=== PATIENT | male | born 1965 | race Native Hawaiian/Other Pacific Islander ===

== ENCOUNTER 2017-01-04 16:10 | Inpatient (IN) | payer OTHER ==
[2017-01-04] VITALS (7 sets, daily range): BP systolic 96–134; BP diastolic 62–88; PULSE 78–96; RESP 16–18; TEMP 97.8; O2SAT 96–100
[~2017-01-04] VITALS: Ht 165.1 cm; Wt 55.0 kg
[~2017-01-04 16:10] MED LIST: FOLI1 PO; LACT10SO27 PO; LEVO88TA2 PO; MAGN400 PO; NOVOLOGP2 SQ; OMEP20TA39 PO; PROP10TA6 PO; TAB-TAB PO
[2017-01-04] MEDS ORDERED: SODIUM CHLOR 0.9% 1000 ML INJ 1,000 ML IV SCH ×2 (16:38→17:58)
[2017-01-04 16:45] LABS: MEAN CORPUSCULAR HGB CONC 29.9 % (32.0-36.0)
[2017-01-04] MEDS ORDERED: FAMOTIDINE 20 MG/2 ML VIAL IV PUSH ONE (16:45)
--- NOTE | 2017-01-04 17:18 | PD ---
HPI Chief Complaint: Diabetic Time Seen by Provider: 17:08 Travel History International Travel<30 days: No Contact w/Intl Traveler<30days: No Traveled to known affect area: No History of Present Illness HPI 51-year-old male that presents to the ED for evaluation of high blood sugar and orthostatic hypotension. Patient apparently went to his doctor today Dr. Stringer from the [facility]. Patient was seen here today because he has been having 1 week history of weakness with inability to keep food down and losing 10 pounds. Patient does have a history of alcoholic cirrhosis. He denies any abdominal discomfort. No chest pain or shortness of breath. No urinary issues or bowel movement issues. Denies any bleeding of any kind. Per patient he went to see his doctor for evaluation of this and he was seen by a doctor who recommended that he comes to the ED. Patient comes here with the paperwork from the facility where he was seen with the history of present illness from the DrElisa who found that the patient was severely orthostatic hypotension with his blood pressure dropping significantly and causing him inability to ambulate. Patient also was found to have what appears to be thrush on his mouth that possibly extends to his esophagus. He has never had this issue before. He was also found to have a blood sugar of 600 and he is a known diabetic but he did not take his insulin today secondary to not eating. Per patient he is able to keep fluids down. Per patient he feels like solids gets stuck on his throat. He has lost 10 pounds. Again he complains of no pain other than on the throat. He denies any swelling of any kind. He has no allergies to medication. PFSH Past Medical History Anemia: Yes Blood Disorders: No Heart Rhythm Problems: No Cancer: No Cardiovascular Problems: Yes High Cholesterol: Yes Chest Pain: No Congestive Heart Failure: No Cirrhosis: Yes Diabetes: Yes Patient Takes Glucophage: No Diminished Hearing: No Endocrine: Yes Gastrointestinal Disorders: Yes (ESOPHAGEAL VARICES) Genitourinary: No Hepatitis: Yes (CIRRHOSIS) Hiatal Hernia: No Hypertension: Yes Immune Disorder: No Medical other: Yes (CIRRHOSIS) Musculoskeletal: No Neurologic: No Psychiatric: No Reproductive: No Respiratory: No Myocardial Infarction: No Thyroid Disease: Yes Tetanus Vaccination: > 5 Years Influenza Vaccination: Yes Past Surgical History Abdominal Surgery: No AICD: No Body Medical Devices: NONE Cardiac Surgery: No Ear Surgery: No Endocrine Surgery: No Eye Surgery: No Genitourinary Surgery: No Gynecologic Surgery: No Joint Replacement: No Neurologic Surgery: No Oral Surgery: No Pacemaker: No Thoracic Surgery: No Other Surgery: Yes (BANDED ESOPHAGEAL VARICES) Social History Alcohol Use: Yes (1 quart vodka/day, PT STATES QUIT 10 DAYS AGO) Tobacco Use: No Substance Use: No Allergies-Medications (Allergen,Severity, Reaction): Coded Allergies: No Known Allergies (Verified , 01/04/17) Reported Meds & Prescriptions Reported Meds & Active Scripts Active Reported Omeprazole 20 Mg Tab 20 Mg PO HS Vitamin B-12 (Cyanocobalamin) Unknown Strength Tab 1 Tab PO HS Multi Vitamin (Multiple Vitamin) 1 Tab Tab 1 Tab PO DAILY Propranolol (Propranolol HCl) 10 Mg Tab 10 Mg PO DAILY Levothyroxine (Levothyroxine Sodium) 88 Mcg Tab 88 Mcg PO DAILY Magnesium Oxide 400 Mg Tab 400 Mg PO DAILY Folate (Folic Acid) 1 Mg Tab 1 Mg PO DAILY Lasix (Furosemide) 20 Mg Tab 20 Mg PO DAILY Review of Systems General / Constitutional: Positive: Weight Loss, No: Fever, Chills, Weight Gain, Other Eyes: No: Diploplia, Blurred Vision, Photophobia, Drainage, Redness, Foreign Body Sensation, Pain, Tearing, Blind Spots, Visual changes, Blindness, Other HENT: No: Headaches, Vertigo, Lightheadedness, Sore Throat, Rhinitis, Rhinorrhea, Congestion, Nosebleed, Neck Stiffness, Neck Pain, Masses, Gingival Bleeding, Dental Difficulties, Ear Discharge, Earache, Other Cardiovascular: No: Chest Pain or Discomfort, Palpitations, Irregular Rhythm, Tachycardia, Diaphoresis, Syncope, Dyspnea on exertion, Varicosities, Edema, Cyanosis, Varicosities, Phlebitis, Claudication, Other Respiratory: No: Cough, Shortness of Breath, Wheezing, Sneezing, Orthopnea, Hemoptysis, Stridor, Night Sweats, Pleuritic Pain, Other Gastrointestinal: Positive: Dysphagia, Loss of Appetite, No: Nausea, Vomiting , Diarrhea, Abdominal Pain, Hematemesis, Hematochezia, Constipation, Changes in Bowel Habits, Indigestion, Other Genitourinary: No: Urgency, Frequency, Dysuria, Nocturia, Hematuria, Decreased Urinary Output, Oliguria, Hesitancy, Dribbling, Incontinence, Pelvic Pain, Flank Pain, Dyspareunia, Discharge, Dysmenorrhea, Menorrhagia, Metorrhagia, Vaginal Bleeding, Other Musculoskeletal: No: Myalgias, Arthralgias, Limited ROM, Weakness, Cramping, Edema, Pain, Atrophy, Other Skin: No Rash, No Itching, No Dryness, No Lumps, No Hives, No Change in Pigmentation, No Change in nails, No Alopecia, No Lesions, No Breast Lumps, No Breast Tenderness, No Breast Swelling, No Other Neurologic: Positive: Weakness, Dizziness, No: Syncope, Focal Abnormalities, Coordination Problem, Tremor, Ataxia, Headache, Change in Mentation, Slurred Speech, Paresthesia, Incontinence, Seizures, Sensory Disturbance, Other Psychiatric: No: Anxiety, Depression, Suicidal Ideations, Disorder of Thought, Mood Disorder, Substance Abuse, Homicidal Ideation, Other Endocrine: No: Heat Intolerance, Cold Intolerance, Polyuria, Polydipsia, Other Hematologic/Lymphatic: No: Easy Bruising, Lymph Node Enlargement, Other Physical Exam Narrative GENERAL: Very petite. SKIN: Warm and dry. HEAD: Atraumatic. Normocephalic. EYES: Pupils equal and round. No scleral icterus. No injection or drainage. ENT: No nasal bleeding or discharge. Mucous membranes pink and moist. Tongue is midline. No blood deviation. Patient has really been petitioned on all teeth which appears to be chronic. Patient cannot fully open the mouth secondary to chronic jaw issue. Patient does have what appears to be white patches on the throat more noted on the left side than on the tongue itself. No obvious deformity noted or mass noted. NECK: Trachea midline. No JVD. CARDIOVASCULAR: Regular rate and rhythm. No murmurs, S3, S4. RESPIRATORY: No accessory muscle use. Clear to auscultation. Breath sounds equal bilaterally. GASTROINTESTINAL: Abdomen soft, non-tender, nondistended. Hepatic and splenic margins not palpable. MUSCULOSKELETAL: Extremities without clubbing, cyanosis, or edema. No obvious deformities. Full range of motion of the upper and lower extremities bilaterally. 2+ pulses bilaterally. NEUROLOGICAL: Awake and alert. No obvious cranial nerve deficits. Motor grossly within normal limits. Five out of 5 muscle strength in the arms and legs. Normal speech. PSYCHIATRIC: Appropriate mood and affect; insight and judgment normal. Data Data Last Documented VS Vital Signs Date Time Temp Pulse Resp B/P Pulse Ox O2 Delivery O2 Flow Rate FiO2 01/04/17 18:15 89 18 132/76 100 Room Air 01/04/17 16:19 97.8 Orders Electrocardiogram (01/04/17 16:38) Complete Blood Count With Diff (01/04/17 16:38) Comprehensive Metabolic Panel (01/04/17 16:38) Ckmb (Isoenzyme) Profile (01/04/17 16:38) Troponin I (01/04/17 16:38) Prothrombin Time / Inr (Pt) (01/04/17 16:38) Act Partial Throm Time (Ptt) (01/04/17 16:38) Lipase (01/04/17 16:38) Urinalysis - C+S If Indicated (01/04/17 16:38) Magnesium (Mg) (01/04/17 16:38) Beta Hydroxybutyrate (Acetone) (01/04/17 16:38) Ammonia (01/04/17 16:38) Thyroid Stimulating Hormone (01/04/17 16:38) Chest, Single Ap (01/04/17 16:38) Sodium Chlor 0.9% 1000 Ml Inj (Ns 1000 M (01/04/17 16:38) Famotidine Inj (Pepcid Inj) (01/04/17 16:45) Orthostatic Vital Signs (01/04/17 16:56) Hiv Antibody Screen (01/04/17 17:19) Fluconazole 400 Mg Premix Bag (Diflucan (01/04/17 17:30) Sodium Chlor 0.9% 1000 Ml Inj (Ns 1000 M (01/04/17 17:58) Food Service Order Clerk / Telemetry (01/04/17 18:33) ^ Insert Iv (01/04/17 18:33) Diet Npo (01/04/17 Dinner) Sodium Chlor 0.9% 1000 Ml Inj (Ns 1000 M (01/04/17 18:33) Dext 5%-Nacl 0.9% 1000 Ml Inj (D5w-Ns 10 (01/04/17 18:33) Insulin Human Regular Inj (Novolin R Inj (01/04/17 18:45) Insulin Regular (Iv Infusion) (Novolin R (01/04/17 18:45) Potassium Chlor 40 Meq Premix (Kcl 40 Me (01/04/17 18:45) Potassium Chlor 40 Meq Premix (Kcl 40 Me (01/04/17 18:45) Potassium Chlor 20 Meq Premix (Kcl 20 Me (01/04/17 18:45) Potassium Chlor 20 Meq Premix (Kcl 20 Me (01/04/17 18:45) Potassium Chlor 20 Meq Premix (Kcl 20 Me (01/04/17 18:45) Potassium Chlor 20 Meq Premix (Kcl 20 Me (01/04/17 18:45) Potassium Chlor 20 Meq Premix (Kcl 20 Me (01/04/17 18:45) Potassium Chlor 20 Meq Premix (Kcl 20 Me (01/04/17 18:45) Sodium Bicarbonate 8.4% Inj (Sodium Bica (01/04/17 18:45) Sodium Bicarbonate 8.4% Inj (Sodium Bica (01/04/17 18:45) Sodium Phosphate Inj (Sodium Phosphate I (01/04/17 18:45) Hemoglobin (Hgb) A1c (01/04/17 18:33) Urinalysis - C+S If Indicated (01/04/17 18:33) Basic Metabolic Panel (Bmp) (01/04/17 23:33) Basic Metabolic Panel (Bmp) (01/05/17 05:33) Basic Metabolic Panel (Bmp) (01/05/17 11:33) Basic Metabolic Panel (Bmp) (01/05/17 17:33) Magnesium (Mg) (01/04/17 23:33) Magnesium (Mg) (01/05/17 05:33) Magnesium (Mg) (01/05/17 11:33) Magnesium (Mg) (01/05/17 17:33) Phosphorus (Po4) (01/04/17 23:33) Phosphorus (Po4) (01/05/17 05:33) Phosphorus (Po4) (01/05/17 11:33) Phosphorus (Po4) (01/05/17 17:33) Beta Hydroxybutyrate (Acetone) (01/05/17 05:33) Beta Hydroxybutyrate (Acetone) (01/05/17 17:33) Admit Order (Ed Use Only) (01/04/17 18:58) Labs Laboratory Tests Test 01/04/17 01/04/17 16:15 17:50 White Blood Count 7.7 TH/MM3 Red Blood Count 3.92 MIL/MM3 Hemoglobin 8.8 GM/DL Hematocrit 29.4 % Mean Corpuscular Volume 75.0 FL Mean Corpuscular Hemoglobin 22.4 PG Mean Corpuscular Hemoglobin 29.9 % Concent Red Cell Distribution Width 17.5 % Platelet Count 114 TH/MM3 Mean Platelet Volume 7.8 FL Neutrophils (%) (Auto) 52.8 % Lymphocytes (%) (Auto) 33.7 % Monocytes (%) (Auto) 12.7 % Eosinophils (%) (Auto) 0.4 % Basophils (%) (Auto) 0.4 % Neutrophils # (Auto) 4.1 TH/MM3 Lymphocytes # (Auto) 2.6 TH/MM3 Monocytes # (Auto) 1.0 TH/MM3 Eosinophils # (Auto) 0.0 TH/MM3 Basophils # (Auto) 0.0 TH/MM3 CBC Comment AUTO DIFF Differential Comment AUTO DIFF CONFIRMED Platelet Estimate NORMAL Platelet Morphology Comment NORMAL Red Cell Morphology Comment NORMAL Prothrombin Time 11.4 SEC Prothromb Time International 1.0 RATIO Ratio Activated Partial 29.4 SEC Thromboplast Time Sodium Level 118 MEQ/L Potassium Level 4.1 MEQ/L Chloride Level 76 MEQ/L Carbon Dioxide Level 22.1 MEQ/L Anion Gap 20 MEQ/L Blood Urea Nitrogen 13 MG/DL Creatinine 1.62 MG/DL Estimat Glomerular Filtration 45 ML/MIN Rate Random Glucose 784 MG/DL Calcium Level 8.9 MG/DL Magnesium Level 1.8 MG/DL Total Bilirubin 0.9 MG/DL Aspartate Amino Transf 16 U/L (AST/SGOT) Alanine Aminotransferase 14 U/L (ALT/SGPT) Alkaline Phosphatase 153 U/L Ammonia 26 MCMOL/L Total Creatine Kinase 25 U/L Troponin I LESS THAN 0.02 NG/ML Total Protein 8.3 GM/DL Albumin 2.8 GM/DL Lipase 53 U/L Thyroid Stimulating Hormone 3.980 uIU/ML 3rd Gen B-Hydroxybutyrate 8.73 MMOL/L Urine Color LIGHT-YELLOW Urine Turbidity CLEAR Urine pH 6.0 Urine Specific [place] 1.017 Urine Protein NEG mg/dL Urine Glucose (UA) 1000 mg/dL Urine Ketones 40 mg/dL Urine Occult Blood TRACE Urine Nitrite NEG Urine Bilirubin NEG Urine Urobilinogen LESS THAN 2.0 MG/DL Urine Leukocyte Esterase NEG Urine RBC 1 /hpf Urine WBC 1 /hpf Urine Squamous Epithelial <1 /hpf Cells Urine Bacteria RARE /hpf Urine Mucus FEW /lpf Microscopic Urinalysis Comment CULT NOT INDICATED MDM Medical Decision Making Medical Screen Exam Complete: Yes Emergency Medical Condition: Yes Medical Record Reviewed: Yes Interpretation(s) CBC & BMP Diagram 01/04/17 16:15 LFTS negative troponin and CKMB negative acetone elevated anion gap of 20. Last Impressions Chest X-Ray 01/04/17 1638 Signed Impressions: Service Date/Time: Wednesday, January 04, 2017 17:06 - CONCLUSION: No acute disease. Marco Antonio Powell MD Differential Diagnosis Esophagitis versus dysphagia versus thrush versus oral candidiasis versus weakness versus DKA versus dehydration versus malnutrition versus cirrhosis versus stricture versus diverticula versus orthostatic hypotension Narrative Course 51-year-old male that presents to the ED for evaluation of inability to eat solids, weakness and inability to ambulate as well as loss of weight and possibly thrush. Patient was properly examined and was found to have signs and symptoms consistent with appears to be esophagitis would likely dysphagia. Questionable but this is related to the oral candidiasis or structural problem I do recommend barium swallow. Before she patient cannot do the barium swallow secondary to his severe orthostatic hypotension which per family is new. Patient did have significant drop of blood pressure and inability to ambulate when standing without assistance at his doctor's office and in this facility. Because of this labs and imaging will be ordered. Cardiac workup will be done. Orthostatic hypotension likely from malnutrition and dehydration could also be related secondary to cirrhosis for cardiac. Patient does have risk factors for all. At this time labs and imaging were ordered. Patient was given 1 bolus of fluid. Patient was given medications for the esophagitis including nystatin and malox. Labs and imaging showed what appears to be DKA. Patient sodium corrected for hyperglycemia show a sodium of 129. Case was discussed with my attending Dr. Zapata who evaluated the patient with me and agrees to admission to the ICU secondary to patient's significant orthostatic hypotension , DKA, anemia and oral candidiasis. Electric Furnace Operator was paged and Dr Salgado agrees to admission. Procedures EKG Prior to Arrival: No HemaPrompt Point of Care Internal Pos. & Neg. Controls: Passed Fecal Specimen Occult Blood: Negative Diagnosis Primary Impression: DKA (diabetic ketoacidoses) Qualified Code: E10.10 - Diabetic ketoacidosis without coma associated with type 1 diabetes mellitus Additional Impressions: Oral candidiasis Anemia Qualified Code: D64.9 - Anemia, unspecified type Dysphagia Qualified Code: R13.14 - Esophageal dysphagia Admitting Information Admitting Physician Requests: Admit Arik Brown Jan 04, 2017 17:18
--- NOTE | 2017-01-04 17:22 | RADRPT ---
EXAM DATE/TIME: 01/04/2017 17:06 [facility] COMPARISON: CHEST SINGLE AP, November 13, 2015, 16:31. INDICATIONS : Short of breath and dysphagia. MEDICAL HISTORY : None. SURGICAL HISTORY : None. ENCOUNTER: Initial ACUITY: 1 week PAIN SCORE: 0/10 LOCATION: Bilateral chest FINDINGS: A single view of the chest demonstrates the lungs to be symmetrically aerated without evidence of mas s, infiltrate or effusion. The cardiomediastinal contours are unremarkable. Osseous structures are intact. CONCLUSION: No acute disease. Marco Antonio Powell MD on January 04, 2017 at 17:20 Board Certified Radiologist. This report was verified electronically.
[2017-01-04 17:24] LABS: AUTOMATED NEUTROPHIL # 4.1 TH/MM3 (1.8-7.7); BASOPHIL % 0.4 % (0.0-2.0); EOSINOPHIL % 0.4 % (0.0-4.0); HEMATOCRIT 29.4 % (39.0-51.0); LYMPH % 33.7 % (9.0-44.0); LYMPHOCYTE # 2.6 TH/MM3 (1.0-4.8); MEAN CORPUSCULAR HEMOGLOBIN 22.4 PG (27.0-34.0); MONO % 12.7 % (0.0-8.0); NEUT % 52.8 % (16.0-70.0); PLATELET COUNT 114 TH/MM3 (150-450); RED BLOOD COUNT 3.92 MIL/MM3 (4.50-5.90); RED CELL DISTRIBUTION WIDTH 17.5 % (11.6-17.2); WHITE BLOOD COUNT 7.7 TH/MM3 (4.0-11.0)
[2017-01-04 17:26] LABS: HEMO FLAGS AUTO DIFF
[2017-01-04] MEDS ORDERED: FLUCONAZOLE 400 MG PREMIX BAG 200 ML IV ONE (17:30)
[2017-01-04 17:34] LABS: APTT (PATIENT) 29.4 SEC (24.3-30.1); PROTHROMBIN TIME - PATIENT 11.4 SEC (9.8-11.6)
[2017-01-04] MEDS ORDERED: VITA50TA10 PO (17:52)
[2017-01-04] MEDS ORDERED: MAGN400T2 PO (17:52)
[2017-01-04] MEDS ORDERED: LEVO88TA2 PO (17:52)
[2017-01-04] MEDS ORDERED: FURO1TAB62 PO (17:52)
[2017-01-04] MEDS ORDERED: PROP10TA6 PO (17:52)
[2017-01-04] MEDS ORDERED: OMEP20TA PO (17:52)
[2017-01-04] MEDS ORDERED: MULT-135 PO (17:52)
[2017-01-04] MEDS ORDERED: FOLI1TAB4 PO (17:52)
[2017-01-04 17:56] LABS: PLATELET ESTIMATE SMEAR NORMAL (NORMAL); PLATELET MORPHOLOGY NORMAL (NORMAL); SCAN/DIFF AUTO DIFF CONFIRMED
[2017-01-04 18:04] LABS: ALKALINE PHOSPHATASE 153 U/L (45-117); ALT (GPT) 14 U/L (12-78); ANION GAP 20 MEQ/L (5-15); AST (GOT) 16 U/L (15-37); BETA-HYDROXYBUTYRATE 8.73 MMOL/L (0.00-0.39); BICARBONATE 22.1 MEQ/L (21.0-32.0); BLOOD UREA NITROGEN 13 MG/DL (7-18); CHLORIDE 76 MEQ/L (98-107); GLOMERULAR FILTRATION RATE 45 ML/MIN (>89); MAGNESIUM 1.8 MG/DL (1.5-2.5); POTASSIUM 4.1 MEQ/L (3.5-5.1); TOTAL BILIRUBIN ADULT 0.9 MG/DL (0.2-1.0)
[2017-01-04 18:07] LABS: CREATINE KINASE 25 U/L (39-308)
[2017-01-04 18:17] LABS: BACTERIA, URINE RARE /hpf; BLOOD, URINE TRACE (NEG); COMMENT (UR) CULT NOT INDICATED; CULTURE IF INDICATED CULT NOT INDICATED; GLUCOSE,URINE 1000 mg/dL (NEG); KETONE, URINE 40 mg/dL (NEG); MUCUS URINE FEW /lpf (OCC); NITRITE,URINE NEG (NEG); SQUAMOUS EPITHELIAL CELL URINE <1 /hpf (0-5); URINE COLOR LIGHT-YELLOW (YELLW/STRAW)
[2017-01-04 18:23] LABS: SODIUM (NA) 118 MEQ/L (136-145)
--- NOTE | 2017-01-04 18:41 | PD ---
Data Data Last Documented VS Vital Signs Date Time Temp Pulse Resp B/P Pulse Ox O2 Delivery O2 Flow Rate FiO2 01/04/17 18:15 89 18 132/76 100 Room Air 01/04/17 16:19 97.8 Orders Electrocardiogram (01/04/17 16:38) Complete Blood Count With Diff (01/04/17 16:38) Comprehensive Metabolic Panel (01/04/17 16:38) Ckmb (Isoenzyme) Profile (01/04/17 16:38) Troponin I (01/04/17 16:38) Prothrombin Time / Inr (Pt) (01/04/17 16:38) Act Partial Throm Time (Ptt) (01/04/17 16:38) Lipase (01/04/17 16:38) Urinalysis - C+S If Indicated (01/04/17 16:38) Magnesium (Mg) (01/04/17 16:38) Beta Hydroxybutyrate (Acetone) (01/04/17 16:38) Ammonia (01/04/17 16:38) Thyroid Stimulating Hormone (01/04/17 16:38) Chest, Single Ap (01/04/17 16:38) Sodium Chlor 0.9% 1000 Ml Inj (Ns 1000 M (01/04/17 16:38) Famotidine Inj (Pepcid Inj) (01/04/17 16:45) Orthostatic Vital Signs (01/04/17 16:56) Hiv Antibody Screen (01/04/17 17:19) Fluconazole 400 Mg Premix Bag (Diflucan (01/04/17 17:30) Sodium Chlor 0.9% 1000 Ml Inj (Ns 1000 M (01/04/17 17:58) Apparel Manager / Telemetry (01/04/17 18:33) ^ Insert Iv (01/04/17 18:33) Diet Npo (01/04/17 Dinner) Sodium Chlor 0.9% 1000 Ml Inj (Ns 1000 M (01/04/17 18:33) Dext 5%-Nacl 0.9% 1000 Ml Inj (D5w-Ns 10 (01/04/17 18:33) Insulin Human Regular Inj (Novolin R Inj (01/04/17 18:45) Insulin Regular (Iv Infusion) (Novolin R (01/04/17 18:45) Potassium Chlor 40 Meq Premix (Kcl 40 Me (01/04/17 18:45) Potassium Chlor 40 Meq Premix (Kcl 40 Me (01/04/17 18:45) Potassium Chlor 20 Meq Premix (Kcl 20 Me (01/04/17 18:45) Potassium Chlor 20 Meq Premix (Kcl 20 Me (01/04/17 18:45) Potassium Chlor 20 Meq Premix (Kcl 20 Me (01/04/17 18:45) Potassium Chlor 20 Meq Premix (Kcl 20 Me (01/04/17 18:45) Potassium Chlor 20 Meq Premix (Kcl 20 Me (01/04/17 18:45) Potassium Chlor 20 Meq Premix (Kcl 20 Me (01/04/17 18:45) Sodium Bicarbonate 8.4% Inj (Sodium Bica (01/04/17 18:45) Sodium Bicarbonate 8.4% Inj (Sodium Bica (01/04/17 18:45) Sodium Phosphate Inj (Sodium Phosphate I (01/04/17 18:45) Hemoglobin (Hgb) A1c (01/04/17 18:33) Urinalysis - C+S If Indicated (01/04/17 18:33) Basic Metabolic Panel (Bmp) (01/04/17 23:33) Basic Metabolic Panel (Bmp) (01/05/17 05:33) Basic Metabolic Panel (Bmp) (01/05/17 11:33) Basic Metabolic Panel (Bmp) (01/05/17 17:33) Magnesium (Mg) (01/04/17 23:33) Magnesium (Mg) (01/05/17 05:33) Magnesium (Mg) (01/05/17 11:33) Magnesium (Mg) (01/05/17 17:33) Phosphorus (Po4) (01/04/17 23:33) Phosphorus (Po4) (01/05/17 05:33) Phosphorus (Po4) (01/05/17 11:33) Phosphorus (Po4) (01/05/17 17:33) Beta Hydroxybutyrate (Acetone) (01/05/17 05:33) Beta Hydroxybutyrate (Acetone) (01/05/17 17:33) Labs Laboratory Tests Test 01/04/17 01/04/17 16:15 17:50 White Blood Count 7.7 TH/MM3 Red Blood Count 3.92 MIL/MM3 Hemoglobin 8.8 GM/DL Hematocrit 29.4 % Mean Corpuscular Volume 75.0 FL Mean Corpuscular Hemoglobin 22.4 PG Mean Corpuscular Hemoglobin 29.9 % Concent Red Cell Distribution Width 17.5 % Platelet Count 114 TH/MM3 Mean Platelet Volume 7.8 FL Neutrophils (%) (Auto) 52.8 % Lymphocytes (%) (Auto) 33.7 % Monocytes (%) (Auto) 12.7 % Eosinophils (%) (Auto) 0.4 % Basophils (%) (Auto) 0.4 % Neutrophils # (Auto) 4.1 TH/MM3 Lymphocytes # (Auto) 2.6 TH/MM3 Monocytes # (Auto) 1.0 TH/MM3 Eosinophils # (Auto) 0.0 TH/MM3 Basophils # (Auto) 0.0 TH/MM3 CBC Comment AUTO DIFF Differential Comment AUTO DIFF CONFIRMED Platelet Estimate NORMAL Platelet Morphology Comment NORMAL Red Cell Morphology Comment NORMAL Prothrombin Time 11.4 SEC Prothromb Time International 1.0 RATIO Ratio Activated Partial 29.4 SEC Thromboplast Time Sodium Level 118 MEQ/L Potassium Level 4.1 MEQ/L Chloride Level 76 MEQ/L Carbon Dioxide Level 22.1 MEQ/L Anion Gap 20 MEQ/L Blood Urea Nitrogen 13 MG/DL Creatinine 1.62 MG/DL Estimat Glomerular Filtration 45 ML/MIN Rate Random Glucose 784 MG/DL Calcium Level 8.9 MG/DL Magnesium Level 1.8 MG/DL Total Bilirubin 0.9 MG/DL Aspartate Amino Transf 16 U/L (AST/SGOT) Alanine Aminotransferase 14 U/L (ALT/SGPT) Alkaline Phosphatase 153 U/L Ammonia 26 MCMOL/L Total Creatine Kinase 25 U/L Troponin I LESS THAN 0.02 NG/ML Total Protein 8.3 GM/DL Albumin 2.8 GM/DL Lipase 53 U/L Thyroid Stimulating Hormone 3.980 uIU/ML 3rd Gen B-Hydroxybutyrate 8.73 MMOL/L Urine Color LIGHT-YELLOW Urine Turbidity CLEAR Urine pH 6.0 Urine Specific [place] 1.017 Urine Protein NEG mg/dL Urine Glucose (UA) 1000 mg/dL Urine Ketones 40 mg/dL Urine Occult Blood TRACE Urine Nitrite NEG Urine Bilirubin NEG Urine Urobilinogen LESS THAN 2.0 MG/DL Urine Leukocyte Esterase NEG Urine RBC 1 /hpf Urine WBC 1 /hpf Urine Squamous Epithelial <1 /hpf Cells Urine Bacteria RARE /hpf Urine Mucus FEW /lpf Microscopic Urinalysis Comment CULT NOT INDICATED MDM Supervised Visit with DEANNA: Yes Narrative Course I, Dr. Angulo, have reviewed the advance practice practioner's documentation and am in agreement, met with the patient face to face, made the diagnosis, and the medical decision making was done by me. *My assessment and Findings: 51-year-old cachectic male with history of alcoholic cirrhosis, GI bleed, esophageal varices status post banding, DM here with complaint of generalized weakness, orthostatic hypotension, hyperglycemia for the last week. Associated dysphasia, and pain with swallowing. Patient was seen by [facility] physician prior to ER evaluation today who noted patient to be severely orthostatic, and they had posterior pharyngeal thrush. Patient had blood sugar in the 600s per EMS. States he's lost approximately 10 pounds in the last week. On exam patient is cachectic male in no acute distress. Complains of nausea. Abdominal examination is benign. He has significant orthostatic hypotension when performed - 40 point drop in blood pressure. Differential includes dehydration, electrolyte abnormality, immunosuppression, esophageal candidiasis, stricture, achalasia. No report of GI bleed. Concern for hyperglycemia, DKA versus HHS. With his esophageal candidiasis concern for HIV. Patient given IV fluids, PPI. Chest x- ray unremarkable. Treated empirically with fluconazole IV. Laboratory workup notable for anemia with hemoglobin 8.8. Laboratory workup notable for hyperglycemia, mild DKA versus HHS. Hyponatremic, sodium 118 corrected 126. Beta hydroxybutyrate 8.73. Patient was started on insulin bolus and drip. HIV test remains pending. Patient will be admitted for further management and potential endoscopy. Diagnosis Primary Impression: DKA (diabetic ketoacidoses) Additional Impressions: Candidal esophagitis Orthostatic hypotension Dysphasia Hyperglycemia Hyponatremia High anion gap metabolic acidosis Anemia Admitting Information Admitting Physician Requests: Admit Shadia Angulo MD Jan 04, 2017 18:41
[2017-01-04] MEDS ORDERED: POTASSIUM CHLOR 40 MEQ PREMIX 100 ML IV PRN ×4 (18:45→20:00)
[2017-01-04] MEDS ORDERED: POTASSIUM CHLOR 20 MEQ PREMIX 100 ML IV PRN ×7 (18:45→20:00)
[2017-01-04] MEDS ORDERED: SODIUM BICARBONATE 8.4% SOLN 50 MEQ/50 ML VIAL IV PRN ×2 (18:45)
[2017-01-04] MEDS ORDERED: SODIUM PHOSPHATE INJ 15 MMOL in SODIUM CHLORIDE 0.9% INJ 100 ML IV PRN (18:45)
[2017-01-04] MEDS ORDERED: INSULIN REGULAR (IV INFUSION) 100 UNITS in SODIUM CHLORIDE 0.9% INJ 99 ML IV SCH (18:45)
[2017-01-04] MEDS ORDERED: INSULIN HUMAN REGULAR 1,000 UNITS/10 ML VIAL IV PUSH ONE (18:45)
[2017-01-04] MEDS: SODIUM CHLOR 0.9% 1000 ML INJ 1,000 ML IV SCH ×2 (19:13→22:25)
[2017-01-04] MEDS: POTASSIUM CHLOR 20 MEQ PREMIX 100 ML IV PRN ×2 (19:23→21:36)
--- NOTE | 2017-01-04 19:56 | HHI.HP ---
HPI Service Critical Care Medicine Primary Care Physician Tyrese Stringer MD Admission Diagnosis DKA, oral candidiasis, orthostatic hypotension Diagnosis: Chief Complaint: dysphagia Travel History International Travel<30 Days: No Contact w/Intl Traveler <30 Da: No Traveled to Known Affected Are: No History of Present Illness This is a 51-year-old male with a history of alcoholic cirrhosis and diabetes who initially presented to his primary care physician for one week of weakness and inability to tolerate food by mouth. He is apparently lost about 10 pounds this week. He denied at that point any abdominal pain, chest pain, shortness of breath, nausea and vomiting. He has a history of GI bleeding, but denies any hemoptysis. His primary care physician referred him to the emergency department. In the emergency department he was severely orthostatic. He received IV fluid boluses which improved his blood pressure. He had significant oral eugenia on evaluation in the emergency department. He does endorse severe dysphagia and pain on swallowing. In emergency department he was also found to be in severe DKA with an anion gap of 20, positive urine ketones, and positive serum ketones. He was started on DKA protocol and insulin infusion and critical care medicine is consulted. Review of Systems ROS Limitations: Clinical Condition, Poor Historian Past Family Social History Allergies: Coded Allergies: No Known Allergies (Verified , 01/04/17) Past Medical History Anemia Hypercholesterolemia Cirrhosis Diabetes Esophageal varices Hypothyroidism Past Surgical History Esophageal variceal banding Reported Medications Omeprazole 20 Mg Tab 20 Mg PO HS Vitamin B-12 (Cyanocobalamin) Unknown Strength Tab 1 Tab PO HS Multi Vitamin (Multiple Vitamin) 1 Tab Tab 1 Tab PO DAILY Propranolol (Propranolol HCl) 10 Mg Tab 10 Mg PO DAILY Levothyroxine (Levothyroxine Sodium) 88 Mcg Tab 88 Mcg PO DAILY Magnesium Oxide 400 Mg Tab 400 Mg PO DAILY Folate (Folic Acid) 1 Mg Tab 1 Mg PO DAILY Lasix (Furosemide) 20 Mg Tab 20 Mg PO DAILY Active Ordered Medications See MAR Family History Reviewed and found to be noncontributory to his acute illness Social History History of etoh abuse (1 qt vodka/day, but quit 10 yrs ago). Physical Exam Vital Signs Vital Signs Date Time Temp Pulse Resp B/P Pulse Ox O2 Delivery O2 Flow Rate FiO2 01/04/17 19:27 78 16 125/78 96 Room Air 01/04/17 18:15 89 18 132/76 100 Room Air 01/04/17 17:53 82 134/76 81 126/88 95 96/62 01/04/17 16:26 87 18 100 Room Air 01/04/17 16:19 97.8 96 18 105/70 99 Physical Exam GENERAL: Cachectic male, lying in bed HEENT: Normocephalic. Atraumatic. Pupils equal, round, conjugate, reactive. Mucous and membranes are dry. NECK: Trachea is midline. Neck veins flat. CHEST: Equal chest rise. Mildly Tachypneic. Clear to auscultation CARDIOVASCULAR: Normal rate, regular rhythm. No appreciable murmurs. ABDOMEN: Scaphoid, soft, nontender, nondistended. No guarding. MUSCULOSKELETAL: No peripheral edema. Distal pulses 2+. NEUROLOGICAL: RASS 0. Follows commands in all 4 extremities. Laboratory Laboratory Tests Test 01/04/17 01/04/17 16:15 17:50 White Blood Count 7.7 Red Blood Count 3.92 Hemoglobin 8.8 Hematocrit 29.4 Mean Corpuscular Volume 75.0 Mean Corpuscular Hemoglobin 22.4 Mean Corpuscular Hemoglobin 29.9 Concent Red Cell Distribution Width 17.5 Platelet Count 114 Mean Platelet Volume 7.8 Neutrophils (%) (Auto) 52.8 Lymphocytes (%) (Auto) 33.7 Monocytes (%) (Auto) 12.7 Eosinophils (%) (Auto) 0.4 Basophils (%) (Auto) 0.4 Neutrophils # (Auto) 4.1 Lymphocytes # (Auto) 2.6 Monocytes # (Auto) 1.0 Eosinophils # (Auto) 0.0 Basophils # (Auto) 0.0 CBC Comment AUTO DIFF Differential Comment AUTO DIFF CONFIRMED Platelet Estimate NORMAL Platelet Morphology Comment NORMAL Red Cell Morphology Comment NORMAL Prothrombin Time 11.4 Prothromb Time International 1.0 Ratio Activated Partial 29.4 Thromboplast Time Sodium Level 118 Potassium Level 4.1 Chloride Level 76 Carbon Dioxide Level 22.1 Anion Gap 20 Blood Urea Nitrogen 13 Creatinine 1.62 Estimat Glomerular Filtration 45 Rate Random Glucose 784 Calcium Level 8.9 Magnesium Level 1.8 Total Bilirubin 0.9 Aspartate Amino Transf 16 (AST/SGOT) Alanine Aminotransferase 14 (ALT/SGPT) Alkaline Phosphatase 153 Ammonia 26 Total Creatine Kinase 25 Troponin I LESS THAN 0.02 Total Protein 8.3 Albumin 2.8 Lipase 53 Thyroid Stimulating Hormone 3.980 3rd Gen B-Hydroxybutyrate 8.73 Urine Color LIGHT-YELLOW Urine Turbidity CLEAR Urine pH 6.0 Urine Specific [place] 1.017 Urine Protein NEG Urine Glucose (UA) 1000 Urine Ketones 40 Urine Occult Blood TRACE Urine Nitrite NEG Urine Bilirubin NEG Urine Urobilinogen LESS THAN 2.0 Urine Leukocyte Esterase NEG Urine RBC 1 Urine WBC 1 Urine Squamous Epithelial <1 Cells Urine Bacteria RARE Urine Mucus FEW Microscopic Urinalysis Comment CULT NOT INDICATED Result Diagram: 01/04/17 1615 01/04/17 1615 Assessment and Plan Assessment and Plan Assessment: this is a 51-year-old male with history of alcoholic cirrhosis and diabetes who presents with severe DKA and by history what appears to be probable Eugenia esophagitis. We will start patient on nystatin swish and swallow as well as IV Diflucan for what appears to be severe esophagitis. I have also consulted gastroenterology because the patient likely will require EGD for evaluation of his dysphagia. With regards to his DKA, we have started DKA protocol with insulin drip. We will keep the patient nothing by mouth for his dysphagia and when his DKA is improved we will not discontinue his IV dextrose, but continue D5NS maintenance fluids while he is nothing by mouth. Plan: 1. Severe Diabetic Ketoacidosis -- Insulin drip, bicarbonate, K replacement, serial BMP, electrolyte replacement per protocol. -- if his anion gap closes appropriately, we will transition to insulin sliding scale q4h, high dose -- we will keep the patient NPO for his dysphagia, and keep him on D5NS @ 75cc/ hr once his DKA has resolved. 2. Probable Eugenia Esophagitis, Dysphagia -- Nystatin swish and swallow -- Diflucan 400mg iv q24h. -- GI consult, may require EGD for dysphagia -- NPO. 3. Orthostatic hypotension -- likely combination of dehydration from dysphagia and DKA. -- IVF resuscitation from ER as well as with DKA protocol. after which, we will keep the patient on maintenance ivf while he is NPO. 4. EtOH Cirrhosis -- continue home propranolol 5. Hypothyroidism -- continue home synthroid Protonix for GI prophylaxis SCDs and Heparin SQ for DVT prophylaxis Dispo: While the patient is in DKA on an insulin drip, we will admit to the ICU. If his gap closes and he transitions appropriately to SSI, I think he would be stable at that point to transition to the floor with hospitalist following. This patient remains critically ill with one or more organ systems which are or may become a threat to life. I have spent in excess of 46 minutes discontinuously in the care and management of this patient. This time is exclusive of procedures, and includes, but is not limited to, evaluation of the patient, review of the medical record, discussions with family, consultants, nursing staff, or respiratory therapy, and documentation in the medical record. Code Status Full Code Paul Salgado MD Jan 04, 2017 19:56
[2017-01-04] MEDS ORDERED: POTASSIUM PHOSPHATE INJ 30 MMOL in SODIUM CHLOR 0.9% 250 ML INJ 250 ML IV PRN (20:00)
[2017-01-04] MEDS ORDERED: HYDROmorphone HCL PF 1 MG/ML VIAL IV PRN (20:00)
[2017-01-04] MEDS ORDERED: POTASSIUM PHOSPHATE MONOBASIC 500 MG TAB PO PRN (20:00)
[2017-01-04] MEDS ORDERED: MAGNESIUM OXIDE 400 MG TAB PO PRN (20:00)
[2017-01-04] MEDS ORDERED: ONDANSETRON HCL 4 MG/2 ML VIAL IV PRN (20:00)
[2017-01-04] MEDS ORDERED: POTASSIUM PHOSPHATE MONOBASIC 500 MG TAB PO/TUBE PRN (20:00)
[2017-01-04] MEDS ORDERED: CHLORHEXIDINE GLUCONATE 2 % 1 PACK (2 CLOTHS) TOP PRN (20:00)
[2017-01-04] MEDS ORDERED: MAGNESIUM SULFATE INJ 4 GM in SODIUM CHLORIDE 0.9% INJ 92 ML IV PRN (20:00)
[2017-01-04] MEDS ORDERED: SODIUM PHOSPHATE INJ 30 MMOL in SODIUM CHLOR 0.9% 250 ML INJ 240 ML IV PRN (20:00)
[2017-01-04] MEDS ORDERED: PROPOFOL 1000 MG/100 ML INJ 100 ML IV SCH (20:00)
[2017-01-04] MEDS ORDERED: RESP: ALBUTEROL 2.5 MG/IPRATROPIUM 0.5 MG NEB (PRN) INH (20:00)
[2017-01-04] MEDS ORDERED: POTASSIUM CL 40 MEQ/30 ML LIQ UDC PO/TUBE PRN ×2 (20:00)
[2017-01-04] MEDS ORDERED: ACETAMINOPHEN 325 MG TAB PO PRN (20:00)
[2017-01-04] MEDS ORDERED: SODIUM CHLORIDE 0.9% FLUSH 5 ML FLUSH IV FLUSH PRN (20:00)
[2017-01-04] MEDS ORDERED: MISCELLANEOUS NURSING INFORMATION XX SCH (20:00)
[2017-01-04] MEDS ORDERED: MAGNESIUM SULFATE INJ 2 GM in SODIUM CHLORIDE 0.9% INJ 96 ML IV PRN (20:00)
[2017-01-04] MEDS: HEPARIN SODIUM - SQ 10,000 UNITS/ML VIAL SQ SCH (20:26)
[2017-01-04] MEDS: SODIUM CHLORIDE 0.9% FLUSH 5 ML FLUSH IV FLUSH SCH (21:00)
[2017-01-04] MEDS: DOCUSATE SODIUM 50 MG/SENNA 8.6 MG TAB PO SCH (21:00)
[2017-01-04] MEDS: DEXT 5%-NACL 0.9% 1000 ML INJ 1,000 ML IV SCH ×2 (22:22→23:35)
[2017-01-04 23:55] LABS: ANION GAP 10 MEQ/L (5-15); BICARBONATE 26.6 MEQ/L (21.0-32.0); BLOOD UREA NITROGEN 9 MG/DL (7-18); CHLORIDE 100 MEQ/L (98-107); GLOMERULAR FILTRATION RATE 65 ML/MIN (>89); MAGNESIUM 1.4 MG/DL (1.5-2.5); POTASSIUM 3.1 MEQ/L (3.5-5.1); SODIUM (NA) 137 MEQ/L (136-145)
[2017-01-05] VITALS (8 sets, daily range): BP systolic 95–141; BP diastolic 67–85; PULSE 68–87; RESP 16–20; TEMP 96.9–97; O2SAT 95–100
[2017-01-05 00:08] LABS: CALCIUM-PROTEIN CORRECTED 7.8 MG/DL (8.5-10.1)
[2017-01-05] MEDS ORDERED: DEXTROSE 50% IN WATER 50 ML VIAL(D50) IV PUSH PRN (01:00)
[2017-01-05] MEDS ORDERED: GLUCAGON 1 MG/ML VIAL OTHER PRN (01:00)
[2017-01-05] MEDS ORDERED: DEXT 5%-NACL 0.9% 1000 ML INJ 1,000 ML IV ONE (01:00)
[2017-01-05] MEDS: DEXT 5%-NACL 0.9% 1000 ML INJ 1,000 ML IV SCH ×2 (01:42→14:35)
[2017-01-05] MEDS: POTASSIUM CHLOR 20 MEQ PREMIX 100 ML IV PRN (01:44)
[2017-01-05] MEDS: NYSTATIN SUSP 500,000 U/5 ML CUP SWISH-SWAL SCH ×5 (02:15→20:51)
[2017-01-05] MEDS: CHLORHEXIDINE GLUCONATE 2 % 1 PACK (2 CLOTHS) TOP SCH (04:00)
[2017-01-05] MEDS: LEVOTHYROXINE SODIUM 88 MCG TAB PO SCH (04:11)
[2017-01-05] MEDS: INDIVIDUALIZED INSULIN NOVOLIN REGULAR SUPPLEMENTAL SCALE SQ SCH ×5 (05:02→20:55)
[2017-01-05 05:21] LABS: HEMATOCRIT 25.1 % (39.0-51.0); MEAN CELL VOLUME 71.9 FL (80.0-100.0); MEAN CORPUSCULAR HEMOGLOBIN 22.9 PG (27.0-34.0); MEAN CORPUSCULAR HGB CONC 31.8 % (32.0-36.0); PLATELET COUNT 76 TH/MM3 (150-450); RED BLOOD COUNT 3.49 MIL/MM3 (4.50-5.90); RED CELL DISTRIBUTION WIDTH 17.3 % (11.6-17.2); WHITE BLOOD COUNT 6.3 TH/MM3 (4.0-11.0)
[2017-01-05 05:29] LABS: REVIEW FLAG FINAL
[2017-01-05 05:33] LABS: ANION GAP 13 MEQ/L (5-15); BICARBONATE 23.2 MEQ/L (21.0-32.0); BLOOD UREA NITROGEN 10 MG/DL (7-18); CHLORIDE 101 MEQ/L (98-107); MAGNESIUM 2.2 MG/DL (1.5-2.5); POTASSIUM 4.9 MEQ/L (3.5-5.1); SODIUM (NA) 137 MEQ/L (136-145)
[2017-01-05 05:41] LABS: BETA-HYDROXYBUTYRATE 5.33 MMOL/L (0.00-0.39)
[2017-01-05] MEDS: HEPARIN SODIUM - SQ 10,000 UNITS/ML VIAL SQ SCH ×2 (08:41→20:53)
[2017-01-05] MEDS: DOCUSATE SODIUM 50 MG/SENNA 8.6 MG TAB PO SCH ×2 (08:43→20:50)
[2017-01-05] MEDS: PANTOPRAZOLE SODIUM 40 MG VIAL IV SCH (08:44)
[2017-01-05] MEDS: PROPRANOLOL HCL 10 MG TAB PO SCH (08:44)
[2017-01-05] MEDS: SODIUM CHLORIDE 0.9% FLUSH 5 ML FLUSH IV FLUSH SCH ×2 (09:00→20:57)
--- NOTE | 2017-01-05 11:21 | PD.CONS ---
HPI History of Present Illness This is a 51 year old male with a hx of liver cirrhosis, esophageal varices, who came to the ER for evaluation of generalized weakness and inability to tolerate po and was found to be in severe DKA and admitted for this, as well as probable meme esophagitis, dysphagia, orthostatic hypotension, liver cirrhosis, and hypothyroidism. GI has been consulted for dysphagia. He has a known history of liver cirrhosis secondary to alcohol abuse. He reports that he no longer drinks alcohol, although he was still drinking half a bottle of vodka daily back in September 2016 according to our office notes. He recently underwent an EGD (12/02/16) and this revealed reflux esophagitis in the distal esophagus, nodular gastritis was found in the gastric antrum, gastropathy was found in the gastric fundus, retroflex views revealed no abnormalities. Pathology revealed mild chronic and active gastritis, negative for intestinal metaplasia, negative for Helicobacter pylori organisms. He takes Carafate 1 gram po TID, Omeprazole 20mg po daily, Lactulose 30mL po BID, Lasix 20mg po daily, and Propranolol 10mg daily at home. He reports that he has never had difficulty swallowing before but started having issues with solid foods getting stuck in his midesophagus about a week ago. He has not been able to eat much in the way of solid since this time and has lost about 10 pounds. He denies any odynophagia, heartburn, reflux, abdominal pain, nausea, vomiting, diarrhea, melena, or hematochezia. He states that he is able to take liquids just fine and he is swallowing his secretions without any difficulty. (Kasey Villa) PFSH Past Medical History Liver cirrhosis secondary to alcohol abuse Anemia BPH Cataracts Cholelithiasis without obstruction Colon polyps Esophagitis/gastritis Diabetes History of elevated sedimentation rate Esophageal varices Hypertension Hemorrhoids GERD GI bleeding History of oral thrush Pancreatic atrophy Psoriasis Thrombocytopenia Past Surgical History EGD Colonoscopy (Kasey Villa) Coded Allergies: No Known Allergies (Verified , 01/04/17) Medications Allergies Coded Allergies Type Severity Reaction Last Updated Verified No Known Allergies 01/04/17 Yes Active Scripts Medications Dose Route/Sig Days Date Category Omeprazole 20 Mg Tab 20 Mg PO HS 01/04/17 Reported Vitamin B-12 (Cyanocobalamin) Unknown Strength Tab 1 Tab PO HS 01/04/17 Reported Multi Vitamin (Multiple Vitamin) 1 Tab Tab 1 Tab PO DAILY 01/04/17 Reported Propranolol (Propranolol HCl) 10 Mg Tab 10 Mg PO DAILY 01/04/17 Reported Levothyroxine (Levothyroxine Sodium) 88 Mcg Tab 88 Mcg PO DAILY 01/04/17 Reported Magnesium Oxide 400 Mg Tab 400 Mg PO DAILY 01/04/17 Reported Folate (Folic Acid) 1 Mg Tab 1 Mg PO DAILY 01/04/17 Reported Lasix (Furosemide) 20 Mg Tab 20 Mg PO DAILY 01/04/17 Reported Family History Family history of colon cancer. Father had diabetes and hypertension Social History Patient denies the use of alcohol at this time. However back in September 2016 and a office visit he admitted to drinking half a bottle of vodka per day No tobacco use (Kasey Villa) Review of Systems Constitutional: COMPLAINS OF: Fatigue, Weight loss, Change in appetite Respiratory: DENIES: Cough, Shortness of breath Cardiovascular: DENIES: Chest pain Gastrointestinal: COMPLAINS OF: Difficulty Swallowing, DENIES: Abdominal pain , Black stools, Bloody stools, Constipation, Diarrhea, Nausea, Vomiting, Odynophagia, Heartburn, Hematemesis Musculoskeletal: DENIES: Joint pain Integumentary: DENIES: Abnormal pigmentation Hematologic/lymphatic: DENIES: Bruising Neurologic: DENIES: Headache Psychiatric: DENIES: Confusion (Kasey Villa) GI Exam Vitals I&O Vital Signs Date Time Temp Pulse Resp B/P Pulse Ox O2 Delivery O2 Flow Rate FiO2 01/05/17 07:13 84 18 117/80 98 Room Air 01/05/17 06:00 81 16 108/75 96 Room Air 01/05/17 02:16 84 16 109/73 98 Room Air 01/05/17 01:01 84 16 103/67 95 Room Air 01/04/17 23:45 96 01/04/17 23:11 85 16 103/65 96 Room Air 01/04/17 20:45 85 16 112/75 97 Room Air 01/04/17 19:27 78 16 125/78 96 Room Air 01/04/17 18:15 89 18 132/76 100 Room Air 01/04/17 17:53 82 134/76 81 126/88 95 96/62 01/04/17 16:26 87 18 100 Room Air 01/04/17 16:19 97.8 96 18 105/70 99 I/O 01/04/17 01/04/17 01/04/17 01/05/17 01/05/17 01/05/17 07:00 15:00 23:00 07:00 15:00 23:00 Output Total 1000 ml Balance -1000 ml Output Urine Total 1000 ml # Voids 2 2 Imaging Last Impressions Chest X-Ray 01/04/17 1638 Signed Impressions: Service Date/Time: Wednesday, January 04, 2017 17:06 - CONCLUSION: No acute disease. Marco Antonio Powell MD Laboratory Test 01/04/17 01/04/17 01/04/17 01/05/17 16:15 17:50 23:10 04:58 White Blood Count 7.7 TH/MM3 6.3 TH/MM3 Red Blood Count 3.92 MIL/MM3 3.49 MIL/MM3 Hemoglobin 8.8 GM/DL 8.0 GM/DL Hematocrit 29.4 % 25.1 % Mean Corpuscular Volume 75.0 FL 71.9 FL Mean Corpuscular Hemoglobin 22.4 PG 22.9 PG Mean Corpuscular Hemoglobin 29.9 % 31.8 % Concent Red Cell Distribution Width 17.5 % 17.3 % Platelet Count 114 TH/MM3 76 TH/MM3 Mean Platelet Volume 7.8 FL 7.2 FL Neutrophils (%) (Auto) 52.8 % Lymphocytes (%) (Auto) 33.7 % Monocytes (%) (Auto) 12.7 % Eosinophils (%) (Auto) 0.4 % Basophils (%) (Auto) 0.4 % Neutrophils # (Auto) 4.1 TH/MM3 Lymphocytes # (Auto) 2.6 TH/MM3 Monocytes # (Auto) 1.0 TH/MM3 Eosinophils # (Auto) 0.0 TH/MM3 Basophils # (Auto) 0.0 TH/MM3 CBC Comment AUTO DIFF Differential Comment AUTO DIFF CONFIRMED Platelet Estimate NORMAL Platelet Morphology Comment NORMAL Red Cell Morphology Comment NORMAL Prothrombin Time 11.4 SEC Prothromb Time International 1.0 RATIO Ratio Activated Partial 29.4 SEC Thromboplast Time Sodium Level 118 MEQ/L 137 MEQ/L 137 MEQ/L Potassium Level 4.1 MEQ/L 3.1 MEQ/L 4.9 MEQ/L Chloride Level 76 MEQ/L 100 MEQ/L 101 MEQ/L Carbon Dioxide Level 22.1 MEQ/L 26.6 MEQ/L 23.2 MEQ/L Anion Gap 20 MEQ/L 10 MEQ/L 13 MEQ/L Blood Urea Nitrogen 13 MG/DL 9 MG/DL 10 MG/DL Creatinine 1.62 MG/DL 1.18 MG/DL 1.08 MG/DL Estimat Glomerular Filtration 45 ML/MIN 65 ML/MIN Rate Random Glucose 784 MG/DL 224 MG/DL 224 MG/DL Calcium Level 8.9 MG/DL 7.4 MG/DL 8.0 MG/DL Magnesium Level 1.8 MG/DL 1.4 MG/DL 2.2 MG/DL Total Bilirubin 0.9 MG/DL Aspartate Amino Transf 16 U/L (AST/SGOT) Alanine Aminotransferase 14 U/L (ALT/SGPT) Alkaline Phosphatase 153 U/L Ammonia 26 MCMOL/L Total Creatine Kinase 25 U/L Troponin I LESS THAN 0.02 NG/ML Total Protein 8.3 GM/DL 6.4 GM/DL Albumin 2.8 GM/DL Lipase 53 U/L Thyroid Stimulating Hormone 3.980 uIU/ML 3rd Gen B-Hydroxybutyrate 8.73 MMOL/L 5.33 MMOL/L Urine Color LIGHT-YELLOW Urine Turbidity CLEAR Urine pH 6.0 Urine Specific [place] 1.017 Urine Protein NEG mg/dL Urine Glucose (UA) 1000 mg/dL Urine Ketones 40 mg/dL Urine Occult Blood TRACE Urine Nitrite NEG Urine Bilirubin NEG Urine Urobilinogen LESS THAN 2.0 MG/DL Urine Leukocyte Esterase NEG Urine RBC 1 /hpf Urine WBC 1 /hpf Urine Squamous Epithelial <1 /hpf Cells Urine Bacteria RARE /hpf Urine Mucus FEW /lpf Microscopic Urinalysis Comment CULT NOT INDICATED Protein Corrected Calcium 7.8 MG/DL Phosphorus Level 1.4 MG/DL 3.6 MG/DL Physical Examination HEENT: Normocephalic; atraumatic; no jaundice. CHEST: CTA CARDIAC: RRR ABDOMEN: Soft, nondistended, nontender; hepatosplenomegaly; bowel sounds are present in all four quadrants. EXTREMITIES: No clubbing, cyanosis, or edema. SKIN: Normal; no rash; no jaundice. BACKSIDE GRINDER: No focal deficits; alert and oriented times three. (Kasey Villa) Assessment and Plan Plan ASSESSMENT: - Dysphagia. 1 week hx of difficulty with solids getting caught mid esophagus. No odynophagia, n/v, heartburn, abdominal pain. No visible oral meme on exam. S/P recent EGD (12/02/16) and this revealed reflux esophagitis in the distal esophagus, nodular gastritis was found in the gastric antrum, gastropathy was found in the gastric fundus, retroflex views revealed no abnormalities. Pathology revealed mild chronic and active gastritis, negative for intestinal metaplasia, negative for Helicobacter pylori organisms. He was started on diflucan, nystatin, ppi. Will get barium swallow today and consider egd in am if needed. - Liver cirrhosis secondary to ETOH. He reports that he stopped drinking although he was still drinking as recently as September of 2016 at an office visit. He takes Carafate 1 gram po TID, Omeprazole 20mg po daily, Lactulose 30mL po BID, Lasix 20mg po daily, and Propranolol 10mg daily at home. - Esophageal varices. PPI, Inderal at home. - Anemia. H/H 8.0/25.1. - Severe DKA, per CCM. IMPROVED. Anion gap 13. CO2 23.3. Per CCM - Hypothyroidism with elevated TSH, per primary - Multiple electrolyte abnormalities. Improved, per ccm PLAN: - Okay for SHANNAN (diabetic) from GI standpoint - NPO after MN in case EGD is needed - Barium swallow today - Cont. PPI - Cont. Diflucan/Nystatin for now - Monitor labs - Supportive care - Further recommendations to follow based on results of above - Pt seen and examined by Dr. Sorensen and myself and this note is written on his behalf (Kasey Villa) Physician Comments seen, examined agre with above (Erin Sorensen MD) Kasey Villa Jan 05, 2017 11:21 Erin Sorensen MD Jan 05, 2017 20:19
--- NOTE | 2017-01-05 11:24 | EKG ---
Date Performed: 01/04/2017 Time Performed: 17:37:48 PTAGE: 51 years EKG: Sinus rhythm BORDERLINE LEFT AXIS DEVIATION Compared to previous tracing, R wave progression has normalized. MELVIN SAHU ECG PREVIOUS TRACING : 11/13/2015 21.44 DOCTOR: José Miguel De Interpretating Date/Time 01/05/2017 11:23:02
--- NOTE | 2017-01-05 12:29 | RADRPT ---
EXAM DATE/TIME: 01/05/2017 12:12 [place] COMPARISON: No previous studies available for comparison. INDICATIONS : Dysphagia. FLUORO TIME: 0.5 minutes IMAGE COUNT: 8 CONTRAST: 1. E-Z HD Barium Sulfate (98% w/w) Liquid E-Z Paque Barium Sulfate (60% w/v, 41% w.w) MEDICAL HISTORY : None. SURGICAL HISTORY : None. ENCOUNTER: Initial ACUITY: 1 week PAIN SCORE: 0/10 LOCATION: Bilateral neck FINDINGS: Air-contrast views of the hypopharynx demonstrate a normal mucosal surface without filling defect. R apid sequence images of the hypopharynx and cervical esophagus during the passage of barium demonstra te a normal swallowing function. No evidence of aspiration. Multiphasic examination of the esophagu s demonstrates no esophageal fold thickening, ulceration, or filling defect. The gastroesophageal ju nction is normal in configuration without evidence of hiatal hernia. CONCLUSION: Unremarkable exam. Marco Antonio Powell MD on January 05, 2017 at 12:27 Board Certified Radiologist. This report was verified electronically.
--- NOTE | 2017-01-05 13:28 | HHI.PR ---
Subjective Remarks No new complaints. Objective Vitals Vital Signs Date Time Temp Pulse Resp B/P Pulse Ox O2 Delivery O2 Flow Rate FiO2 01/05/17 11:30 76 18 95/67 99 Room Air 01/05/17 07:13 84 18 117/80 98 Room Air 01/05/17 06:00 81 16 108/75 96 Room Air 01/05/17 02:16 84 16 109/73 98 Room Air 01/05/17 01:01 84 16 103/67 95 Room Air 01/04/17 23:45 96 01/04/17 23:11 85 16 103/65 96 Room Air 01/04/17 20:45 85 16 112/75 97 Room Air 01/04/17 19:27 78 16 125/78 96 Room Air 01/04/17 18:15 89 18 132/76 100 Room Air 01/04/17 17:53 82 134/76 81 126/88 95 96/62 01/04/17 16:26 87 18 100 Room Air 01/04/17 16:19 97.8 96 18 105/70 99 01/04/17 01/04/17 01/05/17 15:00 23:00 07:00 # Voids 2 Result Diagram: 01/05/17 0458 01/05/17 0458 Imaging Last Impressions Barium Swallow X-Ray 01/05/17 0000 Signed Impressions: Service Date/Time: Thursday, January 05, 2017 12:12 - CONCLUSION: Unremarkable exam. Marco Antonio Powell MD Chest X-Ray 01/04/17 1638 Signed Impressions: Service Date/Time: Wednesday, January 04, 2017 17:06 - CONCLUSION: No acute disease. Marco Antonio Powell MD Objective Remarks GENERAL: This is a well-nourished, well-developed patient, in no apparent distress. CARDIOVASCULAR: Regular rate and rhythm without murmurs, gallops, or rubs. RESPIRATORY: Clear to auscultation. Breath sounds equal bilaterally. No wheezes , rales, or rhonchi. GASTROINTESTINAL: Abdomen soft, non-tender, nondistended. Normal active bowel sounds MUSCULOSKELETAL: Extremities without clubbing, cyanosis, or edema. NEURO: Alert & Oriented x4 to person, place, time, situation. Moves all ext x4 A/P Problem List: (1) Diabetes mellitus Status: Chronic Plan: - Pt admitted with DKA and initially managed by CCM - blood sugars currently stable - continue SSI - Pt normally follows with Endocrinology, Dr. Ryan. Per pt, last apt was 6 months ago. (2) Dysphagia Status: Acute Plan: - comgmt with GI - EGD 01/06 - hopefully d/c to after EGD (3) Alcohol abuse Status: Chronic Plan: - chronic (4) Cirrhosis with alcoholism Status: Chronic Plan: - chronic - continue outpt medications Problem Qualifiers (1) Diabetes mellitus: Qualified Code: E11.69 - Type 2 diabetes mellitus with other specified complication, with long-term current use of insulin (2) Dysphagia: Qualified Code: R13.14 - Esophageal dysphagia (3) Cirrhosis with alcoholism: Qualified Code: K70.30 - Alcoholic cirrhosis of liver without ascites Daniel Garcia DO Jan 05, 2017 13:28
[2017-01-05 16:01] LABS: HEMOGLOBIN A1a 1.4 %; HEMOGLOBIN Ao 72.5 %; HEMOGLOBIN F 3.4 %; HEMOGLOBIN LA1C 2.6 %; HEMOGLOBIN P3 6.3 %
[2017-01-05] MEDS ORDERED: FLUCONAZOLE 400 MG PREMIX BAG 200 ML IV SCH (18:00)
[2017-01-05 22:05] LABS: BETA-HYDROXYBUTYRATE 1.29 MMOL/L (0.00-0.39); BICARBONATE 25.7 MEQ/L (21.0-32.0); MAGNESIUM 1.6 MG/DL (1.5-2.5); POTASSIUM 3.7 MEQ/L (3.5-5.1)
[2017-01-06] VITALS: BP 152/90; PULSE 74; RESP 20; TEMP 98; O2SAT 100
[2017-01-06] MEDS: DEXT 5%-NACL 0.9% 1000 ML INJ 1,000 ML IV SCH (02:05)
[2017-01-06] MEDS: INDIVIDUALIZED INSULIN NOVOLIN REGULAR SUPPLEMENTAL SCALE SQ SCH ×4 (03:44→11:03)
[2017-01-06 04:00] VITALS: BP 125/71; PULSE 66; RESP 20; TEMP 98.2; O2SAT 99
[2017-01-06] MEDS: CHLORHEXIDINE GLUCONATE 2 % 1 PACK (2 CLOTHS) TOP SCH (04:00)
[2017-01-06 04:13] VITALS: PULSE 84
[2017-01-06] MEDS: LEVOTHYROXINE SODIUM 88 MCG TAB PO SCH (05:50)
[2017-01-06 07:30] LABS: HEMATOCRIT 27.2 % (39.0-51.0); MEAN CELL VOLUME 71.7 FL (80.0-100.0); MEAN CORPUSCULAR HEMOGLOBIN 22.1 PG (27.0-34.0); MEAN CORPUSCULAR HGB CONC 30.8 % (32.0-36.0); PLATELET COUNT 48 TH/MM3 (150-450); RED BLOOD COUNT 3.79 MIL/MM3 (4.50-5.90); RED CELL DISTRIBUTION WIDTH 17.8 % (11.6-17.2); WHITE BLOOD COUNT 4.5 TH/MM3 (4.0-11.0)
[2017-01-06 07:35] LABS: REVIEW FLAG FINAL
[2017-01-06 07:48] LABS: BICARBONATE 21.7 MEQ/L (21.0-32.0); POTASSIUM 4.3 MEQ/L (3.5-5.1)
[2017-01-06 08:00] VITALS: BP 123/85; PULSE 86; RESP 18; TEMP 97.2; O2SAT 100
[2017-01-06 08:07] VITALS: PULSE 71
[2017-01-06] MEDS ORDERED: PROPOFOL 200 MG/20 ML AMP IV ONE (09:25)
[2017-01-06] MEDS: PANTOPRAZOLE SODIUM 40 MG VIAL IV SCH (10:57)
[2017-01-06] MEDS: HEPARIN SODIUM - SQ 10,000 UNITS/ML VIAL SQ SCH (10:58)
[2017-01-06] MEDS: NYSTATIN SUSP 500,000 U/5 ML CUP SWISH-SWAL SCH ×2 (10:58→11:04)
[2017-01-06] MEDS: PROPRANOLOL HCL 10 MG TAB PO SCH (10:58)
[2017-01-06] MEDS: DOCUSATE SODIUM 50 MG/SENNA 8.6 MG TAB PO SCH (10:58)
[2017-01-06] MEDS: SODIUM CHLORIDE 0.9% FLUSH 5 ML FLUSH IV FLUSH SCH (10:59)
[2017-01-06 12:00] VITALS: BP 117/80; PULSE 87; RESP 18; TEMP 97.9; O2SAT 100
[2017-01-06] MEDS ORDERED: NOVOINJ3 SQ (14:55)
--- NOTE | 2017-01-06 15:01 | HHI.PR ---
Subjective Remarks No new complaints. Objective Vitals Vital Signs Date Time Temp Pulse Resp B/P Pulse Ox O2 Delivery O2 Flow Rate FiO2 01/06/17 12:00 97.9 87 18 117/80 100 01/06/17 09:55 78 16 125/79 100 01/06/17 09:44 85 16 116/76 100 01/06/17 09:34 97.6 96 16 113/67 95 01/06/17 08:07 71 01/06/17 08:00 97.2 86 18 123/85 100 01/06/17 04:13 84 01/06/17 04:00 98.2 66 20 125/71 99 01/06/17 00:00 98.0 74 20 152/90 100 01/05/17 20:00 97.0 87 20 123/85 100 01/05/17 17:00 96.9 87 20 125/74 95 01/05/17 15:00 68 16 141/83 99 Room Air 01/05/17 01/05/17 01/06/17 15:00 23:00 07:00 Intake Total 380 ml Output Total 1000 ml 2 ml 400 ml Balance -1000 ml 378 ml -400 ml Intake Oral 380 ml Output Urine Total 1000 ml 2 ml 400 ml # Voids 2 # Bowel Movements 0 0 Result Diagram: 01/06/17 0706 01/06/17 0706 Imaging Last Impressions Barium Swallow X-Ray 01/05/17 0000 Signed Impressions: Service Date/Time: Thursday, January 05, 2017 12:12 - CONCLUSION: Unremarkable exam. Marco Antonio Powell MD Chest X-Ray 01/04/17 1638 Signed Impressions: Service Date/Time: Wednesday, January 04, 2017 17:06 - CONCLUSION: No acute disease. Marco Antonio Powell MD Objective Remarks GENERAL: This is a well-nourished, well-developed patient, in no apparent distress. CARDIOVASCULAR: Regular rate and rhythm without murmurs, gallops, or rubs. RESPIRATORY: Clear to auscultation. Breath sounds equal bilaterally. No wheezes , rales, or rhonchi. GASTROINTESTINAL: Abdomen soft, non-tender, nondistended. Normal active bowel sounds MUSCULOSKELETAL: Extremities without clubbing, cyanosis, or edema. NEURO: Alert & Oriented x4 to person, place, time, situation. Moves all ext x4 A/P Problem List: (1) Diabetes mellitus Status: Chronic Plan: - Pt admitted with DKA and initially managed by [facility] - blood sugars currently stable - HgA1C 13.9 (01/04/17) - Pt normally follows with Endocrinology, Dr. Ryan. Per pt, last apt was 6 months ago. - Pt will resume previous Novolog flex pen 20 units TIDAC with adjustment by sliding scale - f/u with Dr. Ryan in 2 weeks - follow diabetic diet (2) Dysphagia Status: Acute Plan: - comgmt with GI - EGD 01/[address] Sorensen - Gastritis, esophagitis, pathology from biopsies pending - Barium Swallow (01/06/17) --> WNL - continue PPI - f/u with Dr. Sorensen in 3 weeks (3) Alcohol abuse Status: Chronic Plan: - chronic - F/u with [facility] mental health outpt (4) Cirrhosis with alcoholism Status: Chronic Plan: - chronic - continue outpt medications Problem Qualifiers (1) Diabetes mellitus: Qualified Code: E11.69 - Type 2 diabetes mellitus with other specified complication, with long-term current use of insulin (2) Dysphagia: Qualified Code: R13.14 - Esophageal dysphagia (3) Cirrhosis with alcoholism: Qualified Code: K70.30 - Alcoholic cirrhosis of liver without ascites Daniel Garcia DO Jan 06, 2017 15:01
--- NOTE | 2017-01-06 15:03 | HHI.DCPOC ---
Discharge Care Plan Diagnosis: (1) Alcohol abuse (2) Cirrhosis with alcoholism (3) Dysphagia (4) DKA (diabetic ketoacidoses) (5) Diabetes mellitus Goals to Promote Your Health * To prevent worsening of your condition and complications * To maintain your health at the optimal level Directions to Meet Your Goals Take your medications as prescribed Follow your dietary instruction Follow activity as directed Keep your appointments as scheduled Take your immunizations and boosters as scheduled If your symptoms worsen call your PCP, if no PCP go to Urgent Care Center or Emergency Room Smoking is Dangerous to Your Health. Avoid second hand smoke Call the 24-hour hour crisis hotline for domestic abuse at Daniel Garcia DO Jan 06, 2017 15:03
== END 2017-01-06 16:54 | disposition home or self-care (01) | DRG 638 ==
LOC: NEPE 16:10 → NEDA 19:00 → NEDH 23:10 → N04A 01-05 16:40
PROVIDERS: ADMIT Internal Medicine Critical Care Medicine; ATTEND Internal Medicine Critical Care Medicine
PROC: 0DB68ZX Excision of Stomach, Via Natural or Artificial Opening Endoscopic, Diagnostic (ICD-10-PCS; 2017-01-06)
PROC: 0DB28ZX Excision of Middle Esophagus, Via Natural or Artificial Opening Endoscopic, Diagnostic (ICD-10-PCS; principal; 2017-01-06 08:55)
DX: E10.10 Type 1 diabetes mellitus with ketoacidosis without coma (principal); B37.81 Candidal esophagitis; B37.0 Candidal stomatitis; E46 Unspecified protein-calorie malnutrition; K70.30 Alcoholic cirrhosis of liver without ascites; R13.19 Other dysphagia; E87.1 Hypo-osmolality and hyponatremia; D64.9 Anemia, unspecified; I95.1 Orthostatic hypotension; E78.00 Pure hypercholesterolemia, unspecified; I10 Essential (primary) hypertension; E03.9 Hypothyroidism, unspecified; E86.0 Dehydration; K29.70 Gastritis, unspecified, without bleeding; K21.0 Gastro-esophageal reflux disease with esophagitis; N40.0 Benign prostatic hyperplasia without lower urinary tract symptoms; Z86.010 Personal history of colon polyps; L40.9 Psoriasis, unspecified; K64.9 Unspecified hemorrhoids; Z80.0 Family history of malignant neoplasm of digestive organs; Z83.3 Family history of diabetes mellitus; Z82.49 Family history of ischemic heart disease and other diseases of the circulatory system; Z79.4 Long term (current) use of insulin
CPT/HCPCS: 71010; 74230; 80048; 80053; 81001; 82010; 82140; 82550; 82948; 83036; 83690; 83735; 84100; 84155; 84443; 84484; 85025; 85027; 85610; 85730; 86703; 88305; 88312; 93005; 96361; 96365; 96374; C9113; J1450; J1644; J1815; J1817; J3475; J3480; J7030; J7042; J7050

== ENCOUNTER 2017-02-10 14:49 | Observation (INO) | payer OTHER ==
[2017-02-10] VITALS (17 sets, daily range): BP systolic 58–147; BP diastolic 38–89; PULSE 96–119; RESP 14–26; TEMP 98–98.5; O2SAT 98–100
[~2017-02-10] VITALS: Ht 167.6 cm; Wt 61.1 kg
[~2017-02-10 14:49] MED LIST changes: -FOLI1 PO; +FOLI1TAB4 PO; +FURO1TAB62 PO; -LACT10SO27 PO; -MAGN400 PO; +MAGN400T2 PO; +MULT-135 PO; +NOVOINJ3 SQ; -NOVOLOGP2 SQ; +OMEP20TA PO; -OMEP20TA39 PO; -PROP10TA6 PO; -TAB-TAB PO; +VITA50TA10 PO
[2017-02-10] MEDS ORDERED: LEVEMIR SQ (14:58)
[2017-02-10] MEDS ORDERED: LACT10SO PO (14:58)
[2017-02-10] MEDS ORDERED: SODIUM CHLOR 0.9% 1000 ML INJ 1,000 ML IV SCH (15:05)
[2017-02-10] MEDS ORDERED: SODIUM CHLOR 0.9% 1000 ML INJ 1,000 ML IV ONE (15:15)
[2017-02-10] MEDS ORDERED: SODIUM CHLORIDE 0.9% FLUSH 10 ML FLUSH IVF PRN (15:15)
[2017-02-10 15:50] LABS: AUTOMATED NEUTROPHIL # 4.4 TH/MM3 (1.8-7.7); BASOPHIL % 0.3 % (0.0-2.0); EOSINOPHIL # 0.1 TH/MM3 (0-0.4); EOSINOPHIL % 0.7 % (0.0-4.0); HEMATOCRIT 23.4 % (39.0-51.0); LYMPH % 43.6 % (9.0-44.0); LYMPHOCYTE # 3.8 TH/MM3 (1.0-4.8); MEAN CELL VOLUME 69.5 FL (80.0-100.0); MEAN CORPUSCULAR HEMOGLOBIN 21.2 PG (27.0-34.0); MEAN CORPUSCULAR HGB CONC 30.6 % (32.0-36.0); MONO % 5.3 % (0.0-8.0); NEUT % 50.1 % (16.0-70.0); PLATELET COUNT 102 TH/MM3 (150-450); RED BLOOD COUNT 3.37 MIL/MM3 (4.50-5.90); RED CELL DISTRIBUTION WIDTH 17.6 % (11.6-17.2); WHITE BLOOD COUNT 8.7 TH/MM3 (4.0-11.0)
[2017-02-10 15:52] LABS: HEMO FLAGS AUTO DIFF
[2017-02-10 16:03] LABS: APTT (PATIENT) 28.7 SEC (24.3-30.1)
[2017-02-10 16:08] LABS: ALT (GPT) 18 U/L (12-78); ANION GAP 11 MEQ/L (5-15); AST (GOT) 20 U/L (15-37); BICARBONATE 25.7 MEQ/L (21.0-32.0); BLOOD UREA NITROGEN 11 MG/DL (7-18); CHLORIDE 95 MEQ/L (98-107); GLOMERULAR FILTRATION RATE 86 ML/MIN (>89); POTASSIUM 4.4 MEQ/L (3.5-5.1); SODIUM (NA) 132 MEQ/L (136-145)
[2017-02-10 16:09] LABS: ALKALINE PHOSPHATASE 180 U/L (45-117); TOTAL BILIRUBIN ADULT 0.4 MG/DL (0.2-1.0)
[2017-02-10 16:27] LABS: PLATELET ESTIMATE SMEAR LOW (NORMAL); PLATELET MORPHOLOGY NORMAL (NORMAL); SCAN/DIFF AUTO DIFF CONFIRMED
--- NOTE | 2017-02-10 16:34 | PD ---
HPI Chief Complaint: Syncope/Near-Syncope Time Seen by Provider: 15:33 Travel History International Travel<30 days: No Contact w/Intl Traveler<30days: No Traveled to known affect area: No History of Present Illness HPI 51-year-old male came to the emergency room brought by his with history of a syncopal episode while he was having his blood drawn. Patient was called by his primary care to let him know that his blood count was very low and that he needed type and screen and blood transfusion. Meanwhile when patient was getting ready to get his blood drawn he fainted. His blood pressure was 50/40. Said he was having trouble seeing anything. No history of chest pain. He seemed very anxious. No history of vomiting or diarrhea. His heart rate was in 1 teens to 120s. Patient denied any chest pain or headache. He has history of alcoholic cirrhosis and sees GI for it. FORMERLY [facility] Past Medical History Narrative Medical List of his past medical, surgical, social and family history was reviewed from the nursing note. Anemia: Yes Blood Disorders: No Heart Rhythm Problems: No Cancer: No Cardiovascular Problems: Yes High Cholesterol: Yes Chest Pain: No Congestive Heart Failure: No Cirrhosis: Yes Diabetes: Yes Diminished Hearing: No Endocrine: Yes Gastrointestinal Disorders: Yes (ESOPHAGEAL VARICES) Genitourinary: No Hepatitis: Yes (CIRRHOSIS) Hiatal Hernia: No Hypertension: Yes Immune Disorder: No Musculoskeletal: No Neurologic: No Psychiatric: No Reproductive: No Respiratory: No Myocardial Infarction: No Thyroid Disease: Yes Past Surgical History Abdominal Surgery: No AICD: No Body Medical Devices: NONE Cardiac Surgery: No Ear Surgery: No Endocrine Surgery: No Eye Surgery: No Genitourinary Surgery: No Gynecologic Surgery: No Joint Replacement: No Neurologic Surgery: No Oral Surgery: No Pacemaker: No Thoracic Surgery: No Other Surgery: Yes (BANDED ESOPHAGEAL VARICES) Social History Alcohol Use: Yes (1 quart vodka/day, PT STATES QUIT 10 DAYS AGO) Tobacco Use: No Substance Use: No Allergies-Medications (Allergen,Severity, Reaction): Coded Allergies: No Known Allergies (Verified , 01/04/17) Comments No known drug allergies. Reported Meds & Prescriptions Reported Meds & Active Scripts Active Reported Lactulose Liq (Lactulose) 10 Gm/15 Ml Soln 30 Ml PO Q6H PRN Omeprazole 20 Mg Tab 20 Mg PO HS Vitamin B-12 (Cyanocobalamin) Unknown Strength Tab 1 Tab PO HS Multi Vitamin (Multiple Vitamin) 1 Tab Tab 1 Tab PO DAILY Levothyroxine (Levothyroxine Sodium) 88 Mcg Tab 88 Mcg PO DAILY Magnesium Oxide 400 Mg Tab 400 Mg PO DAILY Folate (Folic Acid) 1 Mg Tab 1 Mg PO DAILY Lasix (Furosemide) 20 Mg Tab 20 Mg PO DAILY Narrative Medication List of his home medications reviewed from the nursing note. Review of Systems Except as stated in HPI: all other systems reviewed are Neg Physical Exam Narrative GENERAL: Awake, alert, anxious, moderate to significant distress, emaciated SKIN: Warm and dry. Pale HEAD: Atraumatic. Normocephalic. EYES: Pupils equal and round. No scleral icterus. No injection or drainage. Pallor ENT: No nasal bleeding or discharge. Dry mucous membrane NECK: Trachea midline. No JVD. CARDIOVASCULAR: Regular rate and rhythm. No murmur appreciated. RESPIRATORY: No accessory muscle use. Clear to auscultation. Breath sounds equal bilaterally. GASTROINTESTINAL: Abdomen soft, non-tender, nondistended. Hepatic and splenic margins not palpable. MUSCULOSKELETAL: No obvious deformities. No clubbing. No cyanosis. No edema. NEUROLOGICAL: Awake and alert. No obvious cranial nerve deficits. Motor grossly within normal limits. Normal speech. PSYCHIATRIC: Appropriate mood and affect; insight and judgment normal. Data Data Last Documented VS Orders Electrocardiogram (02/10/17 ) Complete Blood Count With Diff (02/10/17 15:05) Comprehensive Metabolic Panel (02/10/17 15:05) Prothrombin Time / Inr (Pt) (02/10/17 15:05) Act Partial Throm Time (Ptt) (02/10/17 15:05) Type And Screen (02/10/17 15:05) Ecg Monitoring (02/10/17 15:05) Iv Access Insert/Monitor (02/10/17 15:05) Oximetry (02/10/17 15:05) Sodium Chlor 0.9% 1000 Ml Inj (Ns 1000 M (02/10/17 15:05) Sodium Chloride 0.9% Flush (Ns Flush) (02/10/17 15:15) Blood Culture (02/10/17 15:06) Sodium Chlor 0.9% 1000 Ml Inj (Ns 1000 M (02/10/17 15:15) Troponin I (02/10/17 15:07) Ckmb (Isoenzyme) Profile (02/10/17 15:07) Red Blood Cells (Rbc) (02/10/17 15:00) Admit Order (Ed Use Only) (02/10/17 17:11) Labs Laboratory Tests Test 02/10/17 15:00 Blood Type B POSITIVE Antibody Screen NEGATIVE Crossmatch Leukocyte-Reduced Red Blood Cells Blood Bank Comment MDM Medical Decision Making Medical Screen Exam Complete: Yes Emergency Medical Condition: Yes Medical Record Reviewed: Yes Interpretation(s) Twelve-lead EKG was reviewed by me. Normal sinus rhythm, left axis deviation, tachycardia, nonspecific ST-T wave changes. Heart rate of 107 bpm. Differential Diagnosis Dehydration, left leg abnormality, GI bleed Narrative Course 4:38 PM patient was given 2 L of IV fluid bolus. Current blood pressure is 111 systolic. He will get 2 units of blood transfusion. Patient will require admission for further workup. The just told me that every morning his blood pressure drops and he gets very lightheaded. This morning he took his Lasix among other medications. His heart rate continues to be in 1 teens. Awaiting for the hospitalist to call back for admission. Critical Care Narrative Aggregate critical care time was 45 minutes. Time to perform other separately billable procedures was not included in the critical care time. My time did not include minutes spent treating any other patients simultaneously or on activities that did not directly contribute to the patient's treatment. The services I provided to this patient were to treat and/or prevent clinically significant deterioration that could result in: Critical hypotension, symptomatic anemia, blood transfusion I provided critical care services requiring my management, as noted below: Chart data review, documentation time, medication orders and management, vital sign assessments/reviewing monitor data, ordering and reviewing lab tests, ordering and interpreting/reviewing x-rays and diagnostic studies, care of the patient and discussion of the patient with the admitting physicians. Procedures EKG Prior to Arrival: No HemaPrompt Point of Care Internal Pos. & Neg. Controls: Passed Fecal Specimen Occult Blood: Negative Diagnosis Primary Impression: Hypotension Qualified Code: I95.9 - Hypotension, unspecified hypotension type Additional Impressions: Syncope Qualified Code: R55 - Syncope, unspecified syncope type Symptomatic anemia Dehydration Hyperglycemia Admitting Information Admitting Physician Requests: Admit Scripts Ferrous Sulfate (Iron)325 Mg Akj148 Mg PO BIDPC #62 TAB Ref 0 Take after a meal. Prov:Jaylyn Sarmiento 02/11/17 Insulin Aspart Inj (Novolog Flexpen Inj)300 Unit/3 Ml Pen10 Units SQ TIDAC #1 PEN Ref 0 Pt takes 6 units at breakfast, 10 units at lunch and 10 units at dinner Prov:Jaylyn Sarmiento 02/11/17 Ismael Jimenez MD Feb 10, 2017 16:34 Anion Gap 11 MEQ/L Blood Urea Nitrogen 11 MG/DL Creatinine 0.93 MG/DL Estimat Glomerular Filtration 86 ML/MIN Rate Random Glucose 327 MG/DL Calcium Level 8.4 MG/DL Total Bilirubin 0.4 MG/DL Aspartate Amino Transf 20 U/L (AST/SGOT) Alanine Aminotransferase 18 U/L (ALT/SGPT) Alkaline Phosphatase 180 U/L Total Protein 7.1 GM/DL Albumin 2.4 GM/DL MDM Medical Decision Making Medical Screen Exam Complete: Yes Emergency Medical Condition: Yes Medical Record Reviewed: Yes Interpretation(s) Twelve-lead EKG was reviewed by me. Normal sinus rhythm, left axis deviation, tachycardia, nonspecific ST-T wave changes. Heart rate of 107 bpm. Differential Diagnosis Dehydration, left leg abnormality, GI bleed Narrative Course 4:38 PM patient was given 2 L of IV fluid bolus. Current blood pressure is 111 systolic. He will get 2 units of blood transfusion. Patient will require admission for further workup. The just told me that every morning his blood pressure drops and he gets very lightheaded. This morning he took his Lasix among other medications. His heart rate continues to be in 1 teens. Awaiting for the hospitalist to call back for admission. Critical Care Narrative Aggregate critical care time was 45 minutes. Time to perform other separately billable procedures was not included in the critical care time. My time did not include minutes spent treating any other patients simultaneously or on activities that did not directly contribute to the patient's treatment. The services I provided to this patient were to treat and/or prevent clinically significant deterioration that could result in: Critical hypotension, symptomatic anemia, blood transfusion I provided critical care services requiring my management, as noted below: Chart data review, documentation time, medication orders and management, vital sign assessments/reviewing monitor data, ordering and reviewing lab tests, ordering and interpreting/reviewing x-rays and diagnostic studies, care of the patient and discussion of the patient with the admitting physicians. Procedures EKG Prior to Arrival: No HemaPrompt Point of Care Internal Pos. & Neg. Controls: Passed Fecal Specimen Occult Blood: Negative Diagnosis Primary Impression: Hypotension Qualified Code: I95.9 - Hypotension, unspecified hypotension type Additional Impressions: Syncope Qualified Code: R55 - Syncope, unspecified syncope type Symptomatic anemia Dehydration Hyperglycemia Admitting Information Admitting Physician Requests: Admit Ismael Jimenez MD Feb 10, 2017 16:34
[2017-02-10 16:59] LABS: CREATINE KINASE 32 U/L (39-308)
[2017-02-10] MEDS ORDERED: LACTULOSE SYRUP 20 GM/30 ML CUP PO PRN (17:15)
--- NOTE | 2017-02-10 17:17 | HHI.HP ---
HPI Service CP Hospitalists Primary Care Physician Tyrese Stringer MD Admission Diagnosis hypotension, syncope, symptomatic anemia Chief Complaint: weak Travel History International Travel<30 Days: No Contact w/Intl Traveler <30 Da: No Traveled to Known Affected Are: No History of Present Illness Pt is 51 yo with dm, etoh related cirrhosis and chronic anemia. Recently he has become weaker. found to have lower hgb of around 6 with hypotension. was holding his propranolol. On presentation syncopized and said to have spb in 50s. Hgb here 7. given ivf's and sbp over 100. Pt denies any cp/sob or sign of blood in stool. Does admit to drinking vodka still but not everyday. Had recent admission for dka and had egd. gastitis and esophagitis in December. Review of Systems Other general weak loc Past Family Social History Past Medical History etoh abuse and cirrhosis egd 01/08. gastritis/esophagitis hypothyroidism dm insulin dep. chronic anemia. iron def anemia BPH Cataracts Cholelithiasis without obstruction Colon polyps Esophagitis/gastritis Esophageal varices Hypertension Hemorrhoids GERD History of oral thrush Pancreatic atrophy Psoriasis Thrombocytopenia Reported Medications tresiba 25 units daily novolog 05/01/10 Lactulose Liq (Lactulose) 10 Gm/15 Ml Soln 30 Ml PO Q6H PRN Omeprazole 20 Mg Tab 20 Mg PO HS Vitamin B-12 (Cyanocobalamin) Unknown Strength Tab 1 Tab PO HS Multi Vitamin (Multiple Vitamin) 1 Tab Tab 1 Tab PO DAILY Levothyroxine (Levothyroxine Sodium) 88 Mcg Tab 88 Mcg PO DAILY Magnesium Oxide 400 Mg Tab 400 Mg PO DAILY Folate (Folic Acid) 1 Mg Tab 1 Mg PO DAILY Lasix (Furosemide) 20 Mg Tab 20 Mg PO DAILY Allergies: Coded Allergies: No Known Allergies (Verified , 01/04/17) Family History nc Social History no tob etoh abuse hx still drinking vodka but not daily Physical Exam Vital Signs heent neg heart reg lung cta abd s/nt ext no edema Vital Signs Date Time Temp Pulse Resp B/P Pulse Ox O2 Delivery O2 Flow Rate FiO2 02/10/17 16:30 112 20 111/60 99 Room Air 02/10/17 16:00 106 14 113/71 100 Room Air 02/10/17 15:30 104 16 100/59 99 Room Air 02/10/17 15:08 104 17 89/53 99 Room Air 02/10/17 15:08 22 100 Room Air 02/10/17 15:03 111 26 83/54 100 Room Air 02/10/17 14:59 105 24 100 Room Air 02/10/17 14:54 119 22 58/38 100 Laboratory Laboratory Tests Test 02/10/17 15:00 White Blood Count 8.7 Red Blood Count 3.37 Hemoglobin 7.2 Hematocrit 23.4 Mean Corpuscular Volume 69.5 Mean Corpuscular Hemoglobin 21.2 Mean Corpuscular Hemoglobin 30.6 Concent Red Cell Distribution Width 17.6 Platelet Count 102 Mean Platelet Volume 7.9 Neutrophils (%) (Auto) 50.1 Lymphocytes (%) (Auto) 43.6 Monocytes (%) (Auto) 5.3 Eosinophils (%) (Auto) 0.7 Basophils (%) (Auto) 0.3 Neutrophils # (Auto) 4.4 Lymphocytes # (Auto) 3.8 Monocytes # (Auto) 0.5 Eosinophils # (Auto) 0.1 Basophils # (Auto) 0.0 CBC Comment AUTO DIFF Differential Comment AUTO DIFF CONFIRMED Platelet Estimate LOW Platelet Morphology Comment NORMAL Prothrombin Time 11.0 Prothromb Time International 1.0 Ratio Activated Partial 28.7 Thromboplast Time Sodium Level 132 Potassium Level 4.4 Chloride Level 95 Carbon Dioxide Level 25.7 Anion Gap 11 Blood Urea Nitrogen 11 Creatinine 0.93 Estimat Glomerular Filtration 86 Rate Random Glucose 327 Calcium Level 8.4 Total Bilirubin 0.4 Aspartate Amino Transf 20 (AST/SGOT) Alanine Aminotransferase 18 (ALT/SGPT) Alkaline Phosphatase 180 Total Creatine Kinase 32 Troponin I LESS THAN 0.02 Total Protein 7.1 Albumin 2.4 Blood Type B POSITIVE Antibody Screen NEGATIVE Crossmatch Leukocyte-Reduced Red Blood Cells Blood Bank Comment Result Diagram: 02/10/17 1500 02/10/17 1500 Assessment and Plan Problem List: (1) Syncope Status: Acute Plan: syncope/hypotension related to symptomatic anemia He is iron deficient. no apparent acute bleeding recent egd noted. prbc 2 units iv venofer ordered ivf Pt eval dvt prophylaxis ssi advance diet review records for colonoscopy. (2) Symptomatic anemia Status: Acute Plan: see above (3) Hypotension Status: Acute Plan: see above (4) Cirrhosis with alcoholism Status: Chronic (5) Diabetes mellitus Status: Chronic Plan: ssi resume home meds as needed. Physician Certification 2 Midnight Certification Type: Admission for Inpatient Services Order for Inpatient Services 3The services are ordered in accordance with Medicare regulations or non- Medicare payer requirements, as applicable. In the case of services not specified as inpatient-only, they are appropriately provided as inpatient services in accordance with the 2-midnight benchmark. Estimated LOS (days): 3 3 days is the estimated time the patient will need to remain in the hospital, assuming treatment plan goals are met and no additional complications. Post-Hospital Plan: Home Problem Qualifiers (1) Syncope: Qualified Code: R55 - Syncope, unspecified syncope type (2) Hypotension: Qualified Code: I95.9 - Hypotension, unspecified hypotension type Jamie Sy MD Feb 10, 2017 17:17
[2017-02-10] MEDS ORDERED: DEXTROSE 50% IN WATER 50 ML VIAL(D50) IV PUSH PRN (17:30)
[2017-02-10] MEDS ORDERED: GLUCAGON 1 MG/ML VIAL OTHER PRN (17:30)
[2017-02-10] MEDS: SODIUM CHLOR 0.9% 1000 ML INJ 1,000 ML IV SCH (17:37)
[2017-02-10] MEDS ORDERED: PANTOPRAZOLE SODIUM 40 MG VIAL IV PUSH SCH (18:00)
[2017-02-10 19:45] LABS: FERRITIN 5 NG/ML (26-388); TRANSFERRIN IRON PROFILE 283 MG/DL (200-360)
[2017-02-10] MEDS: INSULIN ASPART SUPPLEMENTAL SCALE SQ SCH (21:00)
[2017-02-11 03:48] VITALS: BP 145/82; PULSE 94; RESP 16; TEMP 97.6; O2SAT 100
[2017-02-11] MEDS: SODIUM CHLOR 0.9% 1000 ML INJ 1,000 ML IV SCH (05:41)
[2017-02-11] MEDS: INSULIN ASPART SUPPLEMENTAL SCALE SQ SCH ×2 (05:42→12:54)
[2017-02-11] MEDS ORDERED: LEVOTHYROXINE SODIUM 88 MCG TAB PO SCH (06:00)
[2017-02-11 07:32] LABS: AUTOMATED NEUTROPHIL # 3.1 TH/MM3 (1.8-7.7); BASOPHIL % 0.4 % (0.0-2.0); EOSINOPHIL # 0.1 TH/MM3 (0-0.4); HEMATOCRIT 30.1 % (39.0-51.0); LYMPH % 33.3 % (9.0-44.0); LYMPHOCYTE # 1.8 TH/MM3 (1.0-4.8); MEAN CELL VOLUME 71.6 FL (80.0-100.0); MEAN CORPUSCULAR HEMOGLOBIN 22.1 PG (27.0-34.0); MEAN CORPUSCULAR HGB CONC 30.8 % (32.0-36.0); MONO % 9.3 % (0.0-8.0); PLATELET COUNT 61 TH/MM3 (150-450); RED CELL DISTRIBUTION WIDTH 18.6 % (11.6-17.2); WHITE BLOOD COUNT 5.5 TH/MM3 (4.0-11.0)
[2017-02-11 07:39] LABS: HEMO FLAGS AUTO DIFF
[2017-02-11 08:00] VITALS: BP 146/89; PULSE 92; RESP 18; TEMP 97.8; O2SAT 92
[2017-02-11 08:04] LABS: BICARBONATE 29.5 MEQ/L (21.0-32.0)
[2017-02-11 08:18] LABS: PLATELET ESTIMATE SMEAR LOW (NORMAL); PLATELET MORPHOLOGY NORMAL (NORMAL); SCAN/DIFF AUTO DIFF CONFIRMED
[2017-02-11] MEDS ORDERED: MAGNESIUM OXIDE 400 MG TAB PO SCH (09:00)
[2017-02-11] MEDS ORDERED: FOLIC ACID 1 MG TAB PO SCH (09:00)
[2017-02-11] MEDS ORDERED: IRON SUCROSE INJ 200 MG in SODIUM CHLORIDE 0.9% INJ 100 ML IV SCH (09:00)
--- NOTE | 2017-02-11 10:57 | HHI.PR ---
Subjective Remarks Pt with no complaints at the time of exam Denies any abd pain, nausea/vomiting, melena, BRBPR. He states that he has not moved his bowels Pt is anxious for discharge. Objective Vitals Vital Signs Date Time Temp Pulse Resp B/P Pulse Ox O2 Delivery O2 Flow Rate FiO2 02/11/17 08:00 97.8 92 18 146/89 92 02/11/17 03:48 97.6 94 16 145/82 100 02/10/17 23:25 98.5 105 16 141/89 99 02/10/17 22:15 98.5 101 16 147/86 02/10/17 22:00 98.2 107 16 128/79 02/10/17 20:00 96 02/10/17 20:00 Room Air 02/10/17 19:28 98.1 100 16 126/79 99 02/10/17 18:05 98.0 104 15 110/73 98 Room Air 02/10/17 18:00 106 15 110/70 99 Room Air 02/10/17 17:55 106 15 110/70 100 Room Air 02/10/17 17:50 98.0 104 16 106/72 99 Room Air 02/10/17 17:30 108 18 106/86 100 Room Air 02/10/17 17:00 104 16 107/70 99 Room Air 02/10/17 16:30 112 20 111/60 99 Room Air 02/10/17 16:00 106 14 113/71 100 Room Air 02/10/17 15:30 104 16 100/59 99 Room Air 02/10/17 15:08 104 17 89/53 99 Room Air 02/10/17 15:08 22 100 Room Air 02/10/17 15:03 111 26 83/54 100 Room Air 02/10/17 14:59 105 24 100 Room Air 02/10/17 14:54 119 22 58/38 100 02/10/17 02/10/17 02/11/17 15:00 23:00 07:00 Intake Total 0 ml 1744 ml Output Total 1325 ml 350 ml Balance -1325 ml 1394 ml Intake Oral 0 ml 480 ml IV Total 664 ml Packed Cells 600 ml Output Urine Total 1325 ml 350 ml # Voids 3 # Bowel Movements 1 2 Result Diagram: 02/11/1733 02/11/17 0633 Other Results Laboratory Tests Test 02/10/17 02/11/17 15:00 06:33 White Blood Count 8.7 TH/MM3 5.5 TH/MM3 Red Blood Count 3.37 MIL/MM3 4.20 MIL/MM3 Hemoglobin 7.2 GM/DL 9.3 GM/DL Hematocrit 23.4 % 30.1 % Mean Corpuscular Volume 69.5 FL 71.6 FL Mean Corpuscular Hemoglobin 21.2 PG 22.1 PG Mean Corpuscular Hemoglobin 30.6 % 30.8 % Concent Red Cell Distribution Width 17.6 % 18.6 % Platelet Count 102 TH/MM3 61 TH/MM3 Mean Platelet Volume 7.9 FL 8.1 FL Neutrophils (%) (Auto) 50.1 % 56.0 % Lymphocytes (%) (Auto) 43.6 % 33.3 % Monocytes (%) (Auto) 5.3 % 9.3 % Eosinophils (%) (Auto) 0.7 % 1.0 % Basophils (%) (Auto) 0.3 % 0.4 % Neutrophils # (Auto) 4.4 TH/MM3 3.1 TH/MM3 Lymphocytes # (Auto) 3.8 TH/MM3 1.8 TH/MM3 Monocytes # (Auto) 0.5 TH/MM3 0.5 TH/MM3 Eosinophils # (Auto) 0.1 TH/MM3 0.1 TH/MM3 Basophils # (Auto) 0.0 TH/MM3 0.0 TH/MM3 CBC Comment AUTO DIFF AUTO DIFF Differential Comment AUTO DIFF AUTO DIFF CONFIRMED CONFIRMED Platelet Estimate LOW LOW Platelet Morphology Comment NORMAL NORMAL Prothrombin Time 11.0 SEC Prothromb Time International 1.0 RATIO Ratio Activated Partial 28.7 SEC Thromboplast Time Sodium Level 132 MEQ/L 138 MEQ/L Potassium Level 4.4 MEQ/L 4.0 MEQ/L Chloride Level 95 MEQ/L 100 MEQ/L Carbon Dioxide Level 25.7 MEQ/L 29.5 MEQ/L Anion Gap 11 MEQ/L 9 MEQ/L Blood Urea Nitrogen 11 MG/DL 11 MG/DL Creatinine 0.93 MG/DL 0.71 MG/DL Estimat Glomerular Filtration 86 ML/MIN 117 ML/MIN Rate Random Glucose 327 MG/DL 93 MG/DL Calcium Level 8.4 MG/DL 8.1 MG/DL Iron Level 18 MCG/DL Total Iron Binding Capacity 396 MCG/DL Percent Iron Saturation 4.5 % Ferritin 5 NG/ML Total Bilirubin 0.4 MG/DL Aspartate Amino Transf 20 U/L (AST/SGOT) Alanine Aminotransferase 18 U/L (ALT/SGPT) Alkaline Phosphatase 180 U/L Total Creatine Kinase 32 U/L Troponin I LESS THAN 0.02 NG/ML Total Protein 7.1 GM/DL Albumin 2.4 GM/DL Vitamin B12 Level 1385 PG/ML Blood Type B POSITIVE Antibody Screen NEGATIVE Crossmatch Leukocyte-Reduced Red Blood Cells Blood Bank Comment Objective Remarks General: NAD, AAOx3 Chest: CTA Cardiac: Regular Abd: +BS, soft ND/NT Ext: No edema A/P Problem List: (1) Syncope Status: Acute Plan: - Pt admitted with syncope/hypotension related to symptomatic anemia - He is notably iron deficient but no apparent acute bleeding - Pt had a recent EGD (01/06/17) --> gastritis and esophagitis with white deposits most likely meme. - Pts last colonoscopy (01/13/16) --> 2 pedunculated polyps in the descending colon, 8mm each, medium internal hemorrhoids and rectal varices. - Pt s/p transfusion with 2 units PRBCs - Pt has been given IV Venofer - BP has improved - we will resume his Propranolol - Repeat labs with improvement in his Hgb to 9.3 - Stop IVF - Advance diet - Pt can followup with GI as an outpt - We will discharge him on po iron supplements (2) Symptomatic anemia Status: Acute Plan: - See above (3) Hypotension Status: Acute Plan: - See above (4) Cirrhosis with alcoholism Status: Chronic (5) Diabetes mellitus Status: Chronic Plan: - NovoLog SSI - Resume home meds as needed. Assessment and Plan Patient examined. Assessment and plan formulated with Jaylyn Sarmiento PA-C. I agree with the above. syncope and hypotension due to chronic gi blood losses and iron def anemia. s/p 2 units blood. iv iron. cont po iron. ppi. discussed with pcp and order more iv iron in clinic. also notified gi to f/u. no active bleeding. egd last month and c scope last yr. resume bb. Problem Qualifiers (1) Syncope: Qualified Code: R55 - Syncope, unspecified syncope type (2) Hypotension: Qualified Code: I95.9 - Hypotension, unspecified hypotension type Jaylyn Sarmiento Feb 11, 2017 10:57 Jamie Sy MD Feb 11, 2017 12:15
[2017-02-11] MEDS ORDERED: NOVOINJ3 SQ (11:20)
[2017-02-11] MEDS ORDERED: PROP10TA6 PO (11:20)
[2017-02-11] MEDS ORDERED: INSU1INJ14 SQ (11:20)
[2017-02-11] MEDS ORDERED: FERR1TAB36 PO (11:21)
--- NOTE | 2017-02-11 11:23 | HHI.DCPOC ---
Discharge Care Plan Diagnosis: (1) Symptomatic anemia (2) Hypotension (3) Syncope (4) Cirrhosis with alcoholism (5) Diabetes mellitus Goals to Promote Your Health * To prevent worsening of your condition and complications * To maintain your health at the optimal level Directions to Meet Your Goals Take your medications as prescribed Follow your dietary instruction Follow activity as directed Keep your appointments as scheduled Take your immunizations and boosters as scheduled If your symptoms worsen call your PCP, if no PCP go to Urgent Care Center or Emergency Room Smoking is Dangerous to Your Health. Avoid second hand smoke Call the 24-hour hour crisis hotline for domestic abuse at Jaylyn Sarmiento Feb 11, 2017 11:23
[2017-02-11] MEDS ORDERED: PROPRANOLOL HCL 10 MG TAB PO ONE (11:30)
--- NOTE | 2017-02-11 14:49 | EKG ---
Date Performed: 02/10/2017 Time Performed: 15:07:55 PTAGE: 51 years EKG: SINUS TACHYCARDIA ABNORMAL RHYTHM ECG Compared to prior tracing no significant change PREVIOUS TRACING : 01/04/2017 17.37 DOCTOR: Jaime Kitchen Interpretating Date/Time 02/11/2017 14:42:27
== END 2017-02-11 14:02 | disposition home or self-care (01) ==
LOC: NEPE 14:49 → INTOOBSV 17:12 → NEDA 17:12 → N04B 19:26 → UNDODISIN 02-11 14:02
PROVIDERS: ADMIT Hospitalist; ATTEND Hospitalist
DX: D50.9 Iron deficiency anemia, unspecified (principal); E11.9 Type 2 diabetes mellitus without complications; E03.9 Hypothyroidism, unspecified; I10 Essential (primary) hypertension; K21.9 Gastro-esophageal reflux disease without esophagitis; K70.30 Alcoholic cirrhosis of liver without ascites; F10.20 Alcohol dependence, uncomplicated; L40.9 Psoriasis, unspecified; N40.0 Benign prostatic hyperplasia without lower urinary tract symptoms; E78.00 Pure hypercholesterolemia, unspecified; Z79.4 Long term (current) use of insulin
CPT/HCPCS: 36415; 36430; 80048; 80053; 82550; 82607; 82728; 83540; 83550; 84484; 85025; 85610; 85730; 86850; 86900; 86901; 86920; 87040; 93005; 96360; C9113; J1756; J1815; J7030; P9016

== ENCOUNTER 2017-05-02 21:38 | Observation (INO) | payer OTHER ==
[~2017-05-02] VITALS: Ht 167.6 cm; Wt 58.0 kg
[~2017-05-02 21:38] MED LIST changes: +FERR1TAB36 PO; +INSU1INJ14 SQ; +LACT10SO PO; +PROP10TA6 PO
[2017-05-02 21:47] VITALS: BP 113/67; PULSE 80; RESP 22; TEMP 98; O2SAT 99
[2017-05-02] MEDS ORDERED: FOLI400T PO (22:02)
[2017-05-02] MEDS ORDERED: FERR325T72 PO (22:02)
[2017-05-02] MEDS ORDERED: B-12100T PO (22:02)
[2017-05-02] MEDS ORDERED: MULTTAB67 PO (22:02)
[2017-05-02] MEDS ORDERED: SODIUM CHLORID 0.9% 500 ML INJ 500 ML IV ONE (22:15)
[2017-05-02] MEDS ORDERED: SODIUM CHLORIDE 0.9% FLUSH 10 ML FLUSH IVF PRN (22:15)
--- NOTE | 2017-05-02 22:43 | PD ---
HPI Chief Complaint: Syncope/Near-Syncope Time Seen by Provider: 22:03 Travel History International Travel<30 days: No Contact w/Intl Traveler<30days: No Traveled to known affect area: No History of Present Illness HPI The patient is a 51 year old male who presents to the [facility] emergency department with a history of syncopal event that occurred prior to arrival. The patient was sitting on a couch when he became unresponsive for approximately 1 minute. He had no shaking, tongue biting, or loss of bowel or bladder control. He denies having any chest pain, chest pressure, shortness of breath, or palpitations associated with this. He denies having any abdominal pain, nausea, vomiting, or diarrhea. He reports that he last administered insulin in the afternoon. He reports that he gave himself 20 units of Tresiba. The patient's blood sugar prior to arrival was reportedly within normal limits. The patient was given normal saline a 500 mL bolus prior to arrival by ambulance services. A review of systems, the patient denies any recent fevers cough, congestion, neck pain, urinary symptoms, one-sided weakness, slurred speech, facial droop, dizziness, difficulty with word finding ability, or vision changes. [facility] Past Medical History Narrative Medical The patient's past medical history is significant for a history of alcohol abuse and cirrhosis, history of recent endoscopy in December 2016 that revealed gastritis and esophagitis, history of hypothyroid disorder, history of GI bleed status post transfusion, history of insulin-dependent diabetes mellitus, chronic anemia, benign prostatic hypertrophy, cataracts, history of cholelithiasis, colon polyps, esophageal varices, hypertension, history of hemorrhoids, acid reflux, pancreatic atrophy, psoriasis, thrombocytopenia. Anemia: Yes Blood Disorders: No Heart Rhythm Problems: No Cancer: No Cardiovascular Problems: Yes High Cholesterol: Yes Chest Pain: No Congestive Heart Failure: No Cirrhosis: Yes Diabetes: Yes Patient Takes Glucophage: No Diminished Hearing: No Endocrine: Yes Gastrointestinal Disorders: Yes (ESOPHAGEAL VARICES) Genitourinary: No Hepatitis: Yes (CIRRHOSIS) Hiatal Hernia: No Hypertension: Yes Immune Disorder: No Musculoskeletal: No Neurologic: No Psychiatric: No Reproductive: No Respiratory: No Myocardial Infarction: No Thyroid Disease: Yes Tetanus Vaccination: Unknown Influenza Vaccination: No ?: Not Past Surgical History Narrative Surgical The patient's past surgical history is significant for endoscopy with banding of esophageal varices. Abdominal Surgery: No AICD: No Body Medical Devices: NONE Cardiac Surgery: No Ear Surgery: No Endocrine Surgery: No Eye Surgery: No Genitourinary Surgery: No Gynecologic Surgery: No Joint Replacement: No Neurologic Surgery: No Oral Surgery: No Pacemaker: No Thoracic Surgery: No Other Surgery: Yes (BANDED ESOPHAGEAL VARICES) Social History Alcohol Use: Yes (2 shots of vodka a day) Tobacco Use: No Substance Use: No Allergies-Medications (Allergen,Severity, Reaction): Coded Allergies: No Known Allergies (Verified , 01/04/17) Reported Meds & Prescriptions Reported Meds & Active Scripts Active Novolog Flexpen Inj (Insulin Aspart) 300 Unit/3 Ml Pen 10 Units SQ TIDAC Pt takes 6 units at breakfast, 10 units at lunch and 10 units at dinner Reported Multiple Vitamin 1 Tab 1 Tab PO DAILY Folic Acid 400 Mcg Tab 1 Mg PO DAILY Ferrous Gluconate 325 Mg Tab 325 Mg PO DAILY B-12 (Cyanocobalamin) 100 Mcg Tab 100 Mcg PO DAILY Tresiba Flextouch Pen Inj (Insulin Degludec Inj) 300 unit/3 ML Pen 25 Units SQ DAILY Lactulose Liq (Lactulose) 10 Gm/15 Ml Soln 30 Ml PO Q6H PRN Omeprazole 20 Mg Tab 20 Mg PO HS Levothyroxine (Levothyroxine Sodium) 88 Mcg Tab 88 Mcg PO DAILY Magnesium Oxide 400 Mg Tab 400 Mg PO DAILY Lasix (Furosemide) 20 Mg Tab 20 Mg PO DAILY Review of Systems Except as stated in HPI: all other systems reviewed are Neg General / Constitutional: No: Fever Eyes: No: Visual changes HENT: No: Headaches Cardiovascular: Positive: Syncope, No: Chest Pain or Discomfort, Dyspnea on exertion Respiratory: No: Shortness of Breath Gastrointestinal: No: Nausea, Vomiting, Diarrhea, Abdominal Pain Genitourinary: No: Dysuria Musculoskeletal: No: Pain Skin: No Rash Neurologic: Positive: Syncope, No: Weakness, Focal Abnormalities, Change in Mentation, Slurred Speech, Sensory Disturbance Psychiatric: No: Depression Endocrine: No: Polydipsia Hematologic/Lymphatic: No: Easy Bruising Physical Exam Narrative General: The patient is a well-developed well-nourished male in no acute distress. Head and Neck exam: Head is normocephalic atraumatic. Eyes: EOMI, pupils are equal round and reactive to light. Nose: Midline septum with pink mucous membranes Mouth: Dentition unremarkable. Moist mucus membranes. Posterior oropharynx is not erythematous. No tonsillar hypertrophy. Uvula midline. Airway patent. Neck: No palpable lymphadenopathy. No nuchal rigidity. No thyromegaly. Cardiovascular: Regular rate and rhythm without murmurs, gallops, or rubs. Lungs: Clear to auscultation bilaterally. No wheezes, rhonchi, or rales. Abdomen: Soft, without tenderness to palpation in all 4 quadrants of the abdomen. No guarding, rebound, or rigidity. Normal bowel sounds are audible. No tenderness on palpation of McBurney's point. Negative [place] sign. Extremities: No clubbing, cyanosis, or edema. 2+ pulses in all 4 extremities. No calf tenderness on palpation. Back: No costovertebral angle tenderness to palpation. Neurologic Exam: Cranial nerves 2-12 were intact on exam. Strength is 5/5 in all 4 extremities. No sensory deficits noted. No dysdiadochokinesis. Good finger to nose and Heel to willson bilaterally. Skin Exam: No rash noted. Intact skin that is warm and dry. Data Data Last Documented VS Vital Signs Date Time Temp Pulse Resp B/P Pulse Ox O2 Delivery O2 Flow Rate FiO2 05/02/17 23:03 83 22 118/83 93 20 109/75 92 119/73 05/02/17 22:52 100 Room Air 05/02/17 21:47 98.0 Orders Electrocardiogram (05/02/17 22:03) B-Type Natriuretic Peptide (05/02/17 22:03) Ckmb (Isoenzyme) Profile (05/02/17 22:03) Complete Blood Count With Diff (05/02/17 22:03) Comprehensive Metabolic Panel (05/02/17 22:03) D-Dimer (05/02/17 22:03) Magnesium (Mg) (05/02/17 22:03) Prothrombin Time / Inr (Pt) (05/02/17 22:03) Act Partial Throm Time (Ptt) (05/02/17 22:03) Troponin I (05/02/17 22:03) Lipase (05/02/17 22:03) Chest, Single Ap (05/02/17 22:03) Ecg Monitoring (05/02/17 22:03) Bilateral Bp Monitoring (05/02/17 22:03) Iv Access Insert/Monitor (05/02/17 22:03) Oximetry (05/02/17 22:03) Oxygen Administration (05/02/17 22:03) Sodium Chloride 0.9% Flush (Ns Flush) (05/02/17 22:15) Sodium Chlorid 0.9% 500 Ml Inj (Ns 500 M (05/02/17 22:15) Orthostatic Vital Signs (05/02/17 22:03) Type And Screen (05/02/17 22:08) Ct Pulmonary Angiogram (05/03/17 00:47) Potassium Chloride (Kcl) (05/03/17 01:00) Iohexol 350 Inj (Omnipaque 350 Inj) (05/03/17 01:38) Admit Order (Ed Use Only) (05/03/17 02:01) Red Blood Cells (Rbc) (05/02/17 22:40) Labs Laboratory Tests Test 05/02/17 22:40 White Blood Count 5.1 TH/MM3 Red Blood Count 4.22 MIL/MM3 Hemoglobin 12.5 GM/DL Hematocrit 37.0 % Mean Corpuscular Volume 87.7 FL Mean Corpuscular Hemoglobin 29.7 PG Mean Corpuscular Hemoglobin 33.9 % Concent Red Cell Distribution Width 14.2 % Platelet Count 57 TH/MM3 Mean Platelet Volume 7.2 FL Neutrophils (%) (Auto) 55.2 % Lymphocytes (%) (Auto) 31.6 % Monocytes (%) (Auto) 12.4 % Eosinophils (%) (Auto) 0.1 % Basophils (%) (Auto) 0.7 % Neutrophils # (Auto) 2.8 TH/MM3 Lymphocytes # (Auto) 1.6 TH/MM3 Monocytes # (Auto) 0.6 TH/MM3 Eosinophils # (Auto) 0.0 TH/MM3 Basophils # (Auto) 0.0 TH/MM3 CBC Comment AUTO DIFF Differential Comment AUTO DIFF CONFIRMED Platelet Estimate LOW Platelet Morphology Comment NORMAL Red Cell Morphology Comment NORMAL Prothrombin Time 12.0 SEC Prothromb Time International 1.1 RATIO Ratio Activated Partial 32.2 SEC Thromboplast Time D-Dimer Quantitative (PE/DVT) 1.52 MG/L FEU Sodium Level 130 MEQ/L Potassium Level 3.2 MEQ/L Chloride Level 92 MEQ/L Carbon Dioxide Level 24.5 MEQ/L Anion Gap 14 MEQ/L Blood Urea Nitrogen 14 MG/DL Creatinine 0.86 MG/DL Estimat Glomerular Filtration 94 ML/MIN Rate Random Glucose 236 MG/DL Calcium Level 7.9 MG/DL Magnesium Level 1.7 MG/DL Total Bilirubin 1.3 MG/DL Aspartate Amino Transf 30 U/L (AST/SGOT) Alanine Aminotransferase 27 U/L (ALT/SGPT) Alkaline Phosphatase 205 U/L Total Creatine Kinase 29 U/L Troponin I LESS THAN 0.02 NG/ML Total Protein 6.8 GM/DL Albumin 2.8 GM/DL Lipase 46 U/L B-Type Natriuretic Peptide 41 PG/ML Blood Type B POSITIVE Antibody Screen POSITIVE Crossmatch Leukocyte-Reduced Red Blood Cells Blood Bank Comment MDM Medical Decision Making Medical Screen Exam Complete: Yes Emergency Medical Condition: Yes Medical Record Reviewed: Yes Interpretation(s) Last Impressions CT Angiography 05/03/17 0047 Signed Impressions: Service Date/Time: Wednesday, May 03, 2017 01:33 - CONCLUSION: Mild left lung base atelectasis and/or infiltrate is seen. Emma Lance MD Chest X-Ray 05/02/176 Signed Impressions: Service Date/Time: Tuesday, May 02, 2017 22:34 - CONCLUSION: The lungs are clear. Rey Birmingham MD Differential Diagnosis Cardiac arrhythmia, versus recurrence of symptomatic anemia, versus dehydration , versus acute coronary syndrome Narrative Course During the course of the patients emergency department visit, the patients history, examination, and differential diagnosis were reviewed with the patient. The patient had IV access obtained and blood work sent for analysis. A shunt placed on a surveillance system monitor with oximetry and blood pressure monitoring. An EKG was done on arrival. The patient's EKG shows a sinus rhythm heart rate of 81, no acute ST segment elevation or depression, T waves inverted in V1. QRS duration is 86 ms, QTC 417 ms. The patient was initially provided normal saline a 500 mL bolus 1. The patients laboratory studies were reviewed and remarkable for a white count of 5.1, hemoglobin 12.5, platelets 57, monocytes 12.4, CMP is remarkable for a sodium of 1:30, potassium 3.2, chloride 92, glucose 236, total bilirubin 1.3, alkaline phosphatase 205, CPK 29, troponin I less than 0.02, BNP is 41, lipase 46, d-dimer is elevated at 1.52, CTA to rule out PE was ordered, PT 12, PTT 32.2. Radiology studies were reviewed and remarkable for a chest x-ray that shows no acute abnormality. A CT a of the chest shows a mild left lung base atelectasis and/or infiltrate. Given the fact that the patient has no reported cough, no fever, and a normal white count, I suspect that this is atelectasis and no antibiotic was provided. The patient will be admitted to the hospital for evaluation of syncope. The patients results were discussed with the patient, including the plan of care. I explained that further testing and/ or monitoring is indicated based on the patients history, examination, and/ or laboratory findings. Therefore, I recommended admission for additional evaluation. The patient expressed understanding and was agreeable with this plan. The patient was admitted to the hospital in stable condition and sent to a bed under the care of the [facility]. Physician Communication Physician Communication The patient's case was discussed with Dr. Hargrove who did agree to admit the patient for further evaluation and treatment at this time to the [facility]. Diagnosis Primary Impression: Syncope Qualified Code: R55 - Syncope, unspecified syncope type Admitting Information Admitting Physician Requests: Yelitza Saleh MD May 02, 2017 22:43
[2017-05-02 22:52] VITALS: O2SAT 100
--- NOTE | 2017-05-02 22:56 | RADRPT ---
EXAM DATE/TIME: 05/02/2017 22:34 [facility] COMPARISON: CHEST SINGLE AP, January 04, 2017, 17:06. INDICATIONS : Syncopal episode. MEDICAL HISTORY : None. SURGICAL HISTORY : None. ENCOUNTER: Initial ACUITY: 1 day PAIN SCORE: 0/10 LOCATION: Bilateral chest FINDINGS: A single view of the chest demonstrates the lungs to be symmetrically aerated without evidence of mas s, infiltrate or effusion. No evidence of pneumothorax. The cardiomediastinal contours are unremarka ble. Osseous structures are intact. CONCLUSION: The lungs are clear. Rey Birmingham MD on May 02, 2017 at 22:53 Board Certified Radiologist. This report was verified electronically.
[2017-05-02 23:03] VITALS: BP_SYST 109; BP_SYST 118; BP_SYST 119; BP_DIAS 73; BP_DIAS 75; BP_DIAS 83; RESP 20; RESP 22
[2017-05-02 23:09] LABS: AUTOMATED NEUTROPHIL # 2.8 TH/MM3 (1.8-7.7); BASOPHIL % 0.7 % (0.0-2.0); EOSINOPHIL % 0.1 % (0.0-4.0); LYMPH % 31.6 % (9.0-44.0); LYMPHOCYTE # 1.6 TH/MM3 (1.0-4.8); MEAN CELL VOLUME 87.7 FL (80.0-100.0); MEAN CORPUSCULAR HEMOGLOBIN 29.7 PG (27.0-34.0); MEAN CORPUSCULAR HGB CONC 33.9 % (32.0-36.0); MONO % 12.4 % (0.0-8.0); NEUT % 55.2 % (16.0-70.0); PLATELET COUNT 57 TH/MM3 (150-450); RED BLOOD COUNT 4.22 MIL/MM3 (4.50-5.90); RED CELL DISTRIBUTION WIDTH 14.2 % (11.6-17.2); WHITE BLOOD COUNT 5.1 TH/MM3 (4.0-11.0)
[2017-05-02 23:11] LABS: HEMO FLAGS AUTO DIFF
[2017-05-02 23:25] LABS: APTT (PATIENT) 32.2 SEC (24.3-30.1); INTERNATIONAL NORMALIZED RATIO 1.1 RATIO
[2017-05-02 23:32] LABS: ALT (GPT) 27 U/L (12-78); ANION GAP 14 MEQ/L (5-15); AST (GOT) 30 U/L (15-37); BICARBONATE 24.5 MEQ/L (21.0-32.0); BLOOD UREA NITROGEN 14 MG/DL (7-18); CHLORIDE 92 MEQ/L (98-107); GLOMERULAR FILTRATION RATE 94 ML/MIN (>89); MAGNESIUM 1.7 MG/DL (1.5-2.5); POTASSIUM 3.2 MEQ/L (3.5-5.1); SODIUM (NA) 130 MEQ/L (136-145)
[2017-05-02 23:36] LABS: ALKALINE PHOSPHATASE 205 U/L (45-117); TOTAL BILIRUBIN ADULT 1.3 MG/DL (0.2-1.0)
[2017-05-02 23:37] LABS: CREATINE KINASE 29 U/L (39-308)
[2017-05-02 23:40] LABS: PLATELET ESTIMATE SMEAR LOW (NORMAL); PLATELET MORPHOLOGY NORMAL (NORMAL); SCAN/DIFF AUTO DIFF CONFIRMED
[2017-05-03] VITALS (8 sets, daily range): BP systolic 106–153; BP diastolic 73–91; PULSE 67–102; RESP 16–20; TEMP 97.6–98.2; O2SAT 94–100
[2017-05-03] MEDS ORDERED: POTASSIUM CHLORIDE 20 MEQ CONTROLLED RELEASE TAB PO ONE (01:00)
[2017-05-03] MEDS ORDERED: IOHEXOL 350 MG/ML 10 ML VIAL (for RAD DIAG) IV ONE (01:38)
--- NOTE | 2017-05-03 01:50 | RADRPT ---
EXAM DATE/TIME: 05/03/2017 01:33 [facility] COMPARISON: CT PULMONARY ANGIOGRAM, June 26, 2016, 12:44. CHEST SINGLE AP, May 02, 2017, 22:34. INDICATIONS : Short of breath; syncopal episode. Rule out pulmonary embolus. IV CONTRAST: 75 cc Omnipaque 350 (iohexol) IV RADIATION DOSE: 6.14 CTDIvol (mGy) MEDICAL HISTORY : Cardiovascular disease. Hypertension. Cirrhosis.Diabetes. SURGICAL HISTORY : None. ENCOUNTER: Initial ACUITY: 1 day PAIN SCALE: 0/10 LOCATION: chest TECHNIQUE: Volumetric scanning of the chest was performed using a pulmonary embolism protocol MIP images were re constructed. Using automated exposure control and adjustment of the mA and/or kV according to patien t size, radiation dose was kept as low as reasonably achievable to obtain optimal diagnostic quality images. FINDINGS: Mild left lung base atelectasis and/or infiltrate is seen. There is no evidence for PE for technique. There is no pleural effusion. No appreciable pathological adenopathy is seen within the mediastinu m. CONCLUSION: Mild left lung base atelectasis and/or infiltrate is seen. Emma Lance MD on May 03, 2017 at 1:47 Board Certified Radiologist. This report was verified electronically.
[2017-05-03] MEDS ORDERED: SODIUM CHLORIDE 0.9% FLUSH 10 ML FLUSH IV FLUSH PRN (02:15)
[2017-05-03 03:46] LABS: AUTOMATED NEUTROPHIL # 3.6 TH/MM3 (1.8-7.7); BASOPHIL % 0.5 % (0.0-2.0); EOSINOPHIL % 0.7 % (0.0-4.0); HEMATOCRIT 38.3 % (39.0-51.0); LYMPH % 33.5 % (9.0-44.0); LYMPHOCYTE # 2.2 TH/MM3 (1.0-4.8); MEAN CELL VOLUME 87.3 FL (80.0-100.0); MEAN CORPUSCULAR HEMOGLOBIN 30.7 PG (27.0-34.0); MEAN CORPUSCULAR HGB CONC 35.1 % (32.0-36.0); MONO % 10.4 % (0.0-8.0); NEUT % 54.9 % (16.0-70.0); PLATELET COUNT 61 TH/MM3 (150-450); RED BLOOD COUNT 4.38 MIL/MM3 (4.50-5.90); RED CELL DISTRIBUTION WIDTH 13.8 % (11.6-17.2); WHITE BLOOD COUNT 6.5 TH/MM3 (4.0-11.0)
[2017-05-03 03:50] LABS: HEMO FLAGS AUTO DIFF
[2017-05-03 04:20] LABS: BICARBONATE 29.4 MEQ/L (21.0-32.0); POTASSIUM 3.7 MEQ/L (3.5-5.1)
[2017-05-03 04:53] LABS: PLATELET ESTIMATE SMEAR LOW (NORMAL); PLATELET MORPHOLOGY NORMAL (NORMAL); SCAN/DIFF AUTO DIFF CONFIRMED
[2017-05-03] MEDS: INSULIN ASPART SUPPLEMENTAL SCALE SQ SCH ×3 (06:06→16:00)
[2017-05-03] MEDS ORDERED: LACTULOSE SYRUP 20 GM/30 ML CUP PO PRN (09:00)
[2017-05-03] MEDS ORDERED: SODIUM CHLORIDE 0.9% FLUSH 10 ML FLUSH IV FLUSH SCH (09:00)
--- NOTE | 2017-05-03 09:05 | HHI.HP ---
HPI Service [facility] Hospitalists Primary Care Physician Tyrese Stringer MD Admission Diagnosis syncope Chief Complaint: Syncope Travel History International Travel<30 Days: No Contact w/Intl Traveler <30 Da: No Traveled to Known Affected Are: No History of Present Illness Mr. Salinas is a pleasant 51 y/o male with alcohol related cirrhosis, diabetes mellitus and chronic anemia. He presented to the ED at [facility] on 05/02/17 after an episode of syncope. The patient reports that around 8PM last night he was sitting on a couch when he became unresponsive for approximately 1 minute. This was witnessed by his family. There was no reported shaking, tongue biting, or loss of bowel or bladder control. When he came to he did not have any confusion or disorientation. He denies having any chest pain/pressure, shortness of breath, or palpitations associated with this. He denies having any abdominal pain, nausea, vomiting, or diarrhea. He reports that he last administered insulin in the afternoon. He had not eaten dinner and had not given himself his evening dose of insulin yet. He reports that he gave himself 20 units of Tresiba in the morning. The patient's blood sugar prior to arrival was reportedly within normal limits. His labs at admission indicate some mild dehydration. The patient was given normal saline a 500 mL bolus prior to arrival by ambulance services. He denies any recent fevers, cough, congestion, neck pain, urinary symptoms, weakness, slurred speech, facial droop, dizziness, difficulty with word finding ability, or vision changes. Pt had a similar episode of syncope in January but at that time he was noted to be anemic with hypotension. Pts BP upon arrival was stable and his H/H is stable. He denies any noted melena or BRBPR. He does admit to continued alcohol use, drinking vodka but not everyday. Review of Systems Constitutional: DENIES: Diaphoretic episodes, Fever, Dizziness, Night Sweats Eyes: DENIES: Vision loss Ears, nose, mouth, throat: DENIES: Hearing loss, Vertigo Respiratory: DENIES: Cough, Sputum production, Shortness of breath Cardiovascular: COMPLAINS OF: Syncope, DENIES: Chest pain, Lower Extremity Edema Gastrointestinal: DENIES: Abdominal pain, Black stools, Bloody stools, Diarrhea , Nausea, Vomiting Genitourinary: DENIES: Urgency, Hematuria, Dysuria Musculoskeletal: DENIES: Back pain Integumentary: DENIES: Rash Neurologic: DENIES: Headache Psychiatric: DENIES: Confusion Past Family Social History Past Medical History EtOH abuse Liver cirrhosis Hypothyroidism Diabetes mellitus, insulin dependent Chronic Iron def anemia BPH Cataracts Cholelithiasis without obstruction Colon polyps Esophagitis/gastritis Esophageal varices Hypertension Hemorrhoids GERD History of oral thrush Pancreatic atrophy Psoriasis Thrombocytopenia Past Surgical History EGD (01/06/17) --> gastritis and esophagitis with white deposits most likely meme. Colonoscopy (01/13/16) --> 2 pedunculated polyps in the descending colon, 8mm each, medium internal hemorrhoids and rectal varices. Reported Medications Novolog Flexpen Inj (Insulin Aspart) 6 units at breakfast, 10 units at lunch and 10 units at dinner Multiple Vitamin 1 Tab PO DAILY Folic Acid 1 Mg PO DAILY Ferrous Gluconate 325 Mg PO DAILY B-12 100 Mcg PO DAILY Tresiba Flextouch Pen Inj (Insulin Degludec Inj) 25 Units SQ DAILY Lactulose Liq 30 Ml PO Q6H PRN Omeprazole 20 Mg PO HS Levothyroxine 88 Mcg PO DAILY Magnesium Oxide 400 Mg PO DAILY Lasix (Furosemide) 20 Mg PO DAILY Allergies: Coded Allergies: No Known Allergies (Verified , 01/04/17) Family History Noncontributory Social History (+) Alcohol use, still drinking vodka but not daily Denies any tobacco or illicit drug use Physical Exam Vital Signs Vital Signs Date Time Temp Pulse Resp B/P Pulse Ox O2 Delivery O2 Flow Rate FiO2 05/03/17 08:16 98.1 96 18 153/91 99 05/03/17 05:07 98.2 67 16 117/73 94 05/03/17 04:00 100 21 05/03/17 02:42 80 18 146/88 98 Room Air 05/02/17 23:03 83 22 118/83 93 20 109/75 92 119/73 05/02/17 22:52 100 Room Air 05/02/17 22:52 100 Room Air 05/02/17 21:47 98.0 80 22 113/67 99 Physical Exam GENERAL: This is a well-nourished, well-developed patient, in no apparent distress. HEENT: Atraumatic. Normocephalic. No temporal or scalp tenderness. No scleral icterus. Airway patent. NECK: Trachea midline, supple, nontender. CARDIO: Regular. RESP: CTA bilaterally. No wheezes, rales, or rhonchi. ABD: +BS, soft, non-tender, nondistended. EXT: Extremities without clubbing, cyanosis, or edema. NEURO: Awake and alert. Motor and sensory grossly within normal limits. Normal speech. Laboratory Laboratory Tests Test 05/02/17 05/03/17 05/03/17 22:40 02:12 03:10 White Blood Count 5.1 6.5 Red Blood Count 4.22 4.38 Hemoglobin 12.5 13.4 Hematocrit 37.0 38.3 Mean Corpuscular Volume 87.7 87.3 Mean Corpuscular Hemoglobin 29.7 30.7 Mean Corpuscular Hemoglobin 33.9 35.1 Concent Red Cell Distribution Width 14.2 13.8 Platelet Count 57 61 Mean Platelet Volume 7.2 7.4 Neutrophils (%) (Auto) 55.2 54.9 Lymphocytes (%) (Auto) 31.6 33.5 Monocytes (%) (Auto) 12.4 10.4 Eosinophils (%) (Auto) 0.1 0.7 Basophils (%) (Auto) 0.7 0.5 Neutrophils # (Auto) 2.8 3.6 Lymphocytes # (Auto) 1.6 2.2 Monocytes # (Auto) 0.6 0.7 Eosinophils # (Auto) 0.0 0.0 Basophils # (Auto) 0.0 0.0 CBC Comment AUTO DIFF AUTO DIFF Differential Comment AUTO DIFF AUTO DIFF CONFIRMED CONFIRMED Platelet Estimate LOW LOW Platelet Morphology Comment NORMAL NORMAL Red Cell Morphology Comment NORMAL NORMAL Prothrombin Time 12.0 Prothromb Time International 1.1 Ratio Activated Partial 32.2 Thromboplast Time D-Dimer Quantitative (PE/DVT) 1.52 Sodium Level 130 133 Potassium Level 3.2 3.7 Chloride Level 92 96 Carbon Dioxide Level 24.5 29.4 Anion Gap 14 8 Blood Urea Nitrogen 14 12 Creatinine 0.86 0.72 Estimat Glomerular Filtration 94 116 Rate Random Glucose 236 96 Calcium Level 7.9 8.4 Magnesium Level 1.7 Total Bilirubin 1.3 Aspartate Amino Transf 30 (AST/SGOT) Alanine Aminotransferase 27 (ALT/SGPT) Alkaline Phosphatase 205 Total Creatine Kinase 29 Troponin I LESS THAN 0.02 LESS THAN 0.02 Total Protein 6.8 Albumin 2.8 Lipase 46 B-Type Natriuretic Peptide 41 Blood Type B POSITIVE Antibody Screen POSITIVE Crossmatch Leukocyte-Reduced Red Blood Cells Blood Bank Comment Antibody Identification Non-Specific Agglutinin Result Diagram: 05/03/170 05/03/[address] Angiography 05/03/17 0047 Signed Impressions: Service Date/Time: Wednesday, May 03, 2017 01:33 - CONCLUSION: Mild left lung base atelectasis and/or infiltrate is seen. Emma Lance MD Chest X-Ray 05/02/172202 Signed Impressions: Service Date/Time: Tuesday, May 02, 2017 22:34 - CONCLUSION: The lungs are clear. Rey Birmingham MD Septic Shock Reassessment Heart: Regular rate and rhythm Lungs: Clear Skin: Warm Assessment and Plan Problem List: (1) Syncope Status: Acute Plan: - Pt admitted with syncopal episode possible secondary to some dehydration ? orthostasis - He was not significantly hypotensive in the ED and his BS was reportedly normal upon EMS arrival - H/H was stable at admission. - CTA Chest --> Mild left lung base atelectasis and/or infiltrate is seen - Pt is not currently on any Propranolol - Pt was given IVF overnight - Check orthostatic vital signs - Give some more IVF today - No acute events noted on telemetry - Holter monitor - 2D echo is ordered - Holter Monitor - DVT prophylaxis (2) Cirrhosis with alcoholism Status: Chronic Plan: - Pt is off Propranolol - Cont. Folic acid/MVI/B12 - Pt is still occasionally drinking alcohol - Alcohol cessation (3) Diabetes mellitus Status: Chronic Plan: - NovoLog SSI - Accu checks (4) GERD (gastroesophageal reflux disease) Status: Chronic Plan: - PPI Assessment and Plan Patient examined. Assessment and plan formulated with Jaylyn Sarmiento PA-C. I agree with the above. syncope. dehydration/hyponatremia/hypokalemia/orthostatic. ivf now. hypoglycemia 42. rx with glucose. Pt insisting on d/c home today. I offered another night observation but he refused. d/c home and fu Problem Qualifiers (1) Diabetes mellitus: Jaylyn Sarmiento May 03, 2017 09:05 Jamie Sy MD May 03, 2017 15:03
[2017-05-03] MEDS ORDERED: LEVOTHYROXINE SODIUM 88 MCG TAB PO SCH (09:30)
[2017-05-03] MEDS ORDERED: INSULIN ASPART SUPPLEMENTAL SCALE SQ SCH (11:00)
--- NOTE | 2017-05-03 12:39 | ECHRPT ---
Indication: Syncope and collapse CONCLUSIONS Normal left ventricular size and wall thickness. The left ventricular systolic function is normal wi th an estimated ejection fraction in the range of 60-65%. Left ventricular diastolic function parameters a re normal. Structurally normal mitral valve. Trace mitral valve regurgitation. Structurally normal tricuspid valve. There is trace tricuspid valve regurgitation. BP: 113 / 67 HR: 80 Rhythm: MEASUREMENTS (Male / Female) Normal Values Technical Quality:Good 2D ECHO LV Diastolic Diameter PLAX 3.5 cm 4.2 - 5.9 / 3.9 - 5.3 cm LV Systolic Diameter PLAX 2.7 cm IVS Diastolic Thickness 1.5 cm 0.6 - 1.0 / 0.6 - 0.9 cm LVPW Diastolic Thickness 0.8 cm 0.6 - 1.0 / 0.6 - 0.9 cm LV Relative Wall Thickness 0.6 RV Internal Dim ED PLAX 2.6 cm M-MODE Aortic Root Diameter MM 2.8 cm LA Systolic Diameter MM 3.0 cm LA Ao Ratio MM 1.1 AV Cusp Separation MM 1.3 cm DOPPLER Mitral E Point Velocity 78.5 cm/s Mitral A Point Velocity 102.0 cm/s Mitral E to A Ratio 0.8 LV E' Lateral Velocity 10.4 cm/s Mitral E to LV E' Lateral Ratio 7.5 LV E' Septal Velocity 7.1 cm/s Mitral E to LV E' Septal Ratio 11.0 TR Peak Velocity 293.0 cm/s TR Peak Gradient 34.3 mmHg FINDINGS LEFT VENTRICLE Normal left ventricular size and wall thickness. The left ventricular systolic function is normal wi th an estimated ejection fraction in the range of 60-65%. Left ventricular diastolic function parameters a re normal. RIGHT VENTRICLE Normal right ventricular size and systolic function. LEFT ATRIUM The left atrial size is normal. RIGHT ATRIUM The right atrial size is normal. ATRIAL SEPTUM Normal atrial septal thickness without atrial level shunting by limited color doppler interrogation. AORTA The aortic root and proximal ascending aorta are normal in size on limited imaging. MITRAL VALVE Structurally normal mitral valve. Trace mitral valve regurgitation. No mitral valve stenosis. AORTIC VALVE Trileaflet aortic valve. No aortic valve stenosis or regurgitation. TRICUSPID VALVE Structurally normal tricuspid valve. There is trace tricuspid valve regurgitation. No tricuspid valve stenosis. PULMONARY VALVE The pulmonary valve is not well visualized. VESSELS The inferior vena cava is normal in size. PERICARDIUM No pericardial effusion. Alon Marinelli MD, FACC (Electronically Signed) Final Date:03 May 2017 12:39
[2017-05-03] MEDS ORDERED: CYANOCOBALAMIN 100 MCG TAB PO SCH (13:00)
[2017-05-03] MEDS ORDERED: MULTIVITAMIN TAB PO SCH (13:00)
[2017-05-03] MEDS ORDERED: FERROUS SULFATE 325 MG (65 MG ELEMENTAL IRON) TAB PO SCH (13:00)
[2017-05-03] MEDS ORDERED: MAGNESIUM OXIDE 400 MG TAB PO SCH (13:00)
[2017-05-03] MEDS ORDERED: FOLIC ACID 1 MG TAB PO SCH (13:00)
[2017-05-03] MEDS ORDERED: SODIUM CHLORID 0.9% 500 ML INJ 500 ML IV SCH (15:00)
[2017-05-03] MEDS ORDERED: SODIUM CHLORID 0.9% IV STA (15:01)
--- NOTE | 2017-05-03 15:04 | HHI.DCPOC ---
Discharge Care Plan Diagnosis: (1) Syncope (2) Dehydration (3) GERD (gastroesophageal reflux disease) (4) Cirrhosis with alcoholism (5) Diabetes mellitus Goals to Promote Your Health * To prevent worsening of your condition and complications * To maintain your health at the optimal level Directions to Meet Your Goals Take your medications as prescribed Follow your dietary instruction Follow activity as directed Keep your appointments as scheduled Take your immunizations and boosters as scheduled If your symptoms worsen call your PCP, if no PCP go to Urgent Care Center or Emergency Room Smoking is Dangerous to Your Health. Avoid second hand smoke Call the 24-hour hour crisis hotline for domestic abuse at Jaylyn Sarmiento May 03, 2017 15:04
[2017-05-03] MEDS ORDERED: SODIUM CHLOR 0.9% 1000 ML INJ 1,000 ML IV STA (15:07)
--- NOTE | 2017-05-03 18:17 | EKG ---
Date Performed: 05/02/2017 Time Performed: 22:14:45 PTAGE: 51 years EKG: Sinus rhythm Since previous tracing, no significant change noted NORMAL ECG PREVIOUS TRACING : 02/10/2017 15.07 DOCTOR: José Miguel De Interpretating Date/Time 05/03/2017 18:16:56
[2017-05-03] MEDS ORDERED: PANTOPRAZOLE SOD 20 MG DELAYED RELEASE TAB PO SCH (21:00)
--- NOTE | 2017-05-04 18:13 | HM ---
Date Performed: 05/04/2017 Time Performed: 12:58:00 HOOKUP DATE: 05/04/17 12:58:00 PM Tue ANALYSIS START TIME: 05/04/2017 1:03:00 PM ANALYSIS END TIME: 05/05/2017 12:48:37 PM PATIENT AGE: 51 PATIENT HEIGHT PATIENT WEIGHT DRUG LIST PATIENT DIAGNOSIS: syncope TEST NARRATIVE: The patient's average heart rate was 84 BPM. Heart rates greater than 120 B PM were noted < 1% of the time. No episodes of bradycardia were noted. No pauses exceeding 2.0 s econds were noted. 7 ventricular ectopics, which represented < 1% of the total beat count, were n oted. The highest ventricular ectopic frequency occurred from 08:00 AM to 09:00 AM Wed. During this time 2 VE(s) occurred. Ventricular ectopics were observed as 7 isolated beat(s) only. No couplets or runs were noted. 3 supraventricular ectopics, which represented < 1% of the total beat count, were noted. The highest supraventricular ectopic frequency occurred from 02:00 AM to 03:00 AM Wed. During this time 2 SVE(s) occurred. No episodes of ST depression (defined as -1.0 mm or more) wer e noted in channel 1. No episodes of ST depression (defined as -1.0 mm or more) were noted in channe l 2. No episodes of ST depression (defined as -1.0 mm or more) were noted in channel 3. NO DIARY RET URNED TEST INTERPRETATION: Underlying rhythm is Sinus rhythm with average rate 84 beats per minute and range of 60-120 beats per minute. No significant pauses a re noted and no diary was returned. Extremely rare isolated atrial and ventricular premature contrac tions are seen with extremely rare atrial couplets. Signed by : Srikanth Alarcon
== END 2017-05-03 17:49 | disposition home or self-care (01) ==
LOC: NEPE 21:38 → NEDA 05-03 02:03 → NEPHCDU 05-03 03:18 → NEDA 05-03 03:26 → NEPHCDU 05-03 04:24
PROVIDERS: ADMIT Hospitalist; ATTEND Hospitalist
DX: R55 Syncope and collapse (principal); K70.30 Alcoholic cirrhosis of liver without ascites; F10.20 Alcohol dependence, uncomplicated; D50.9 Iron deficiency anemia, unspecified; E11.9 Type 2 diabetes mellitus without complications; K21.9 Gastro-esophageal reflux disease without esophagitis; R06.02 Shortness of breath; E86.0 Dehydration; I49.1 Atrial premature depolarization; I49.3 Ventricular premature depolarization; R91.8 Other nonspecific abnormal finding of lung field; I10 Essential (primary) hypertension; E78.00 Pure hypercholesterolemia, unspecified; E03.9 Hypothyroidism, unspecified; L40.9 Psoriasis, unspecified; N40.0 Benign prostatic hyperplasia without lower urinary tract symptoms; Z79.899 Other long term (current) drug therapy; Z79.4 Long term (current) use of insulin
CPT/HCPCS: 71010; 71275; 80048; 80053; 82550; 82948; 83690; 83735; 83880; 84484; 85025; 85379; 85610; 85730; 86077; 86850; 86870; 86900; 86901; 86920; 86922; 93005; 93225; 93226; 93306; 96360; 96372; 99285; G0378; J1815; J7030; J7040; Q9967

== ENCOUNTER → 2017-08-16 | Day surgery (SDC) | payer OTHER ==
[~2017-08-16] MED LIST changes: +B-12100T PO; -FERR1TAB36 PO; +FERR325T72 PO; -FOLI1TAB4 PO; +FOLI400T PO; +LACTATED RINGER'S 1000 ML INJ 1,000 ML ONE; -MULT-135 PO; +MULTTAB67 PO; -PROP10TA6 PO; +PROPOFOL 100 MG/10 ML INJ IV ONE; -VITA50TA10 PO
--- NOTE | 2017-08-16 13:11 | GIPROC ---
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 TOPICAL ANESTHETIC: none CONSENT: The patient understands the risks and benefits of the procedure and understands that these risks include, but are not limited to: sedation, allergic reaction, infection, perforation and/or bleeding. Alternative means of evaluation and treatment include, among others: physical exam, x-rays, and/or surgical intervention. The patient elects to proceed with this endoscopic procedure. medical equipment was checked for proper function. Hand hygiene and appropriate measures for infection prevention was taken. After the risks, benefits and alternatives of the procedure were thoroughly explained, Informed consent was verified, confirmed and timeout was successfully executed by the treatment team. The patient was anesthetized with topical anesthesia and the EC-[id number] ([id number]) endoscope was introduced through the mouth and advanced to the second portion of the duodenum. Retroflexed views revealed a hiatal hernia The gastroscope was then slowly withdrawn and removed. Nodular gastrtis antrum-biopsy esophagitis distal esophagus-biopsy. ADVERSE EVENTS: There were no complications. IMPRESSIONS: 1. Nodular gastrtis antrum-biopsy esophagitis distal esophagus-biopsy 2. Retroflexed views revealed a hiatal hernia RECOMMENDATIONS: 1. Await biopsy results. Biopsy results will not be ready for 7-10 days. If you don't hear from us in two weeks, call our office for biopsy results. 2. Anti-reflux regimen 3. Continue PPI 4. Avoid NSAIDS PATIENT CONDITION: stable DISPOSITION: Home REPEAT EXAM: Return 1 year EGD Erin Sorensen MD eSigned: Erin Sorensen MD 08/16/2017 1:11 PM cc: Dagmar Youngblood
== END | disposition home or self-care (01) ==
LOC: ESDC 12:02
PROVIDERS: ATTEND Internal Medicine Gastroenterology
DX: K74.60 Unspecified cirrhosis of liver (principal); K29.70 Gastritis, unspecified, without bleeding; D64.9 Anemia, unspecified; K44.9 Diaphragmatic hernia without obstruction or gangrene; K20.9 Esophagitis, unspecified
CPT/HCPCS: 00740; 43239; 82948; 88305; 88312; J3010; J7120

== ENCOUNTER 2017-11-19 15:40 | Inpatient (IN) | payer OTHER ==
[~2017-11-19] VITALS: Ht 167.6 cm; Wt 51.5 kg
[~2017-11-19 15:40] MED LIST changes: -LACTATED RINGER'S 1000 ML INJ 1,000 ML ONE; -OMEP20TA PO; +OMEP20TA93 PO; -PROPOFOL 100 MG/10 ML INJ IV ONE
[2017-11-19 15:45] VITALS: BP 117/80; PULSE 96; RESP 16; TEMP 97.4; O2SAT 99
[2017-11-19] MEDS ORDERED: HYDROmorphone HCL PF 2 MG/ML VIAL IV PUSH ONE (16:00)
[2017-11-19] MEDS ORDERED: ONDANSETRON HCL 4 MG/2 ML VIAL IV PUSH ONE (16:00)
[2017-11-19 16:43] LABS: BASOPHIL % 0.5 % (0.0-2.0); EOSINOPHIL % 1.1 % (0.0-4.0); HEMATOCRIT 38.4 % (39.0-51.0); HEMOGLOBIN 13.7 GM/DL (13.0-17.0); LYMPH % 40.6 % (9.0-44.0); LYMPHOCYTE # 1.5 TH/MM3 (1.0-4.8); MEAN CELL VOLUME 91.7 FL (80.0-100.0); MEAN CORPUSCULAR HEMOGLOBIN 32.7 PG (27.0-34.0); MEAN CORPUSCULAR HGB CONC 35.6 % (32.0-36.0); MEAN PLATELET VOLUME 7.5 FL (7.0-11.0); MONOCYTE # 0.2 TH/MM3 (0-0.9); NEUT % 51.8 % (16.0-70.0); PLATELET COUNT 66 TH/MM3 (150-450); RED BLOOD COUNT 4.19 MIL/MM3 (4.50-5.90); RED CELL DISTRIBUTION WIDTH 13.5 % (11.6-17.2); WHITE BLOOD COUNT 3.8 TH/MM3 (4.0-11.0)
--- NOTE | 2017-11-19 16:48 | PD ---
HPI Chief Complaint: Hip Injury Time Seen by Provider: 15:49 Travel History International Travel<30 days: No Contact w/Intl Traveler<30days: No Traveled to known affect area: No History of Present Illness HPI 52-year-old male that presents to the ED for evaluation of left hip injury. Per patient he tripped and fell today from a standing position. He landed straight on his left hip. He's not been able to move his left hip since. Ambulance was called and brought him here. She was given 8 of morphine with some relief but he still complains of severe pain. He denies any chest pain or head injury. He denies any blood thinners. He states that his only medical history is diabetes. Takes insulin for this. He denies any prior injuries to his hip. He denies any recent travel. No numbness, tingling, weakness. Per patient the pain is 8 out of 10. No back pain or neck pain. No arm pain. Denies any shortness of breath. Has no orthopedic surgeon. States compliant with his diabetic medications. No other medical issues at this time. PFSH Past Medical History Anemia: Yes Blood Disorders: No Heart Rhythm Problems: No Cancer: No Cardiovascular Problems: Yes High Cholesterol: Yes Chest Pain: No Congestive Heart Failure: No Cirrhosis: Yes Diabetes: Yes Patient Takes Glucophage: No Diminished Hearing: No Endocrine: Yes Gastrointestinal Disorders: Yes (ESOPHAGEAL VARICES) Genitourinary: No Hepatitis: Yes (CIRRHOSIS) Hiatal Hernia: No Hypertension: Yes Immune Disorder: No Musculoskeletal: No Neurologic: No Psychiatric: No Reproductive: No Respiratory: No Myocardial Infarction: No Thyroid Disease: Yes Tetanus Vaccination: Unknown Influenza Vaccination: No Past Surgical History Abdominal Surgery: No AICD: No Body Medical Devices: NONE Cardiac Surgery: No Ear Surgery: No Endocrine Surgery: No Eye Surgery: No Genitourinary Surgery: No Gynecologic Surgery: No Joint Replacement: No Neurologic Surgery: No Oral Surgery: No Pacemaker: No Thoracic Surgery: No Other Surgery: Yes (BANDED ESOPHAGEAL VARICES) Social History Alcohol Use: Yes (2 shots of vodka a day) Tobacco Use: No Substance Use: No Allergies-Medications (Allergen,Severity, Reaction): Coded Allergies: No Known Allergies (Verified Allergy, Unknown, 11/19/17) Reported Meds & Prescriptions Reported Meds & Active Scripts Active Reported Multiple Vitamin 1 Tab 1 Tab PO DAILY Folic Acid 400 Mcg Tab 1 Mg PO DAILY Ferrous Gluconate 325 Mg Tab 325 Mg PO DAILY B-12 (Cyanocobalamin) 100 Mcg Tab 100 Mcg PO DAILY Tresiba Flextouch Pen Inj (Insulin Degludec Inj) 300 unit/3 ML Pen 25 Units SQ DAILY Lactulose Liq (Lactulose) 10 Gm/15 Ml Soln 30 Ml PO Q6H PRN Omeprazole 20 Mg Tab 20 Mg PO HS Levothyroxine (Levothyroxine Sodium) 88 Mcg Tab 88 Mcg PO DAILY Magnesium Oxide 400 Mg Tab 400 Mg PO DAILY Lasix (Furosemide) 20 Mg Tab 20 Mg PO DAILY Review of Systems Except as stated in HPI: all other systems reviewed are Neg Physical Exam Narrative GENERAL: SKIN: Warm and dry. HEAD: Atraumatic. Normocephalic. EYES: Pupils equal and round. No scleral icterus. No injection or drainage. ENT: No nasal bleeding or discharge. Mucous membranes pink and moist. Tongue is midline. No uvula deviation. NECK: Trachea midline. No JVD. CARDIOVASCULAR: Regular rate and rhythm. No murmurs, S3, S4. RESPIRATORY: No accessory muscle use. Clear to auscultation. Breath sounds equal bilaterally. GASTROINTESTINAL: Abdomen soft, non-tender, nondistended. Hepatic and splenic margins not palpable. MUSCULOSKELETAL: Extremities without clubbing, cyanosis, or edema. No obvious deformities. Full range of motion of the upper and lower extremities bilaterally with the exception of the left hip which patient tips flexed for comfort. Patient cannot extend the leg without severe pain. Patient has no obvious knee or ankle deformity noted. 2+ pulses bilaterally. Full range of motion of the upper extremities with no pain. No obvious deformity noted. No lumbar, thoracic, cervical spine tenderness to palpation. Sensation appears to be intact. NEUROLOGICAL: Awake and alert. No obvious cranial nerve deficits. Motor grossly within normal limits. Five out of 5 muscle strength in the arms and legs. Normal speech. PSYCHIATRIC: Appropriate mood and affect; insight and judgment normal. Data Data Last Documented VS Vital Signs Date Time Temp Pulse Resp B/P (MAP) Pulse Ox O2 Delivery O2 Flow Rate FiO2 11/19/17 17:16 96 17 122/85 (97) Nasal Cannula 2.00 11/19/17 15:45 97.4 99 Orders Orders Hip, Uni(Ap&Lat) W Ap Pelvis (11/19/17 15:47) Ice/Cold Pack (11/19/17 15:47) Complete Blood Count With Diff (11/19/17 15:47) Basic Metabolic Panel (Bmp) (11/19/17 15:47) Urinalysis - C+S If Indicated (11/19/17 15:47) Magnesium (Mg) (11/19/17 15:47) Type And Screen (11/19/17 15:47) Coag Profile (11/19/17 15:47) Hydromorphone Pf Inj (Dilaudid Pf Inj) (11/19/17 16:00) Ondansetron Inj (Zofran Inj) (11/19/17 16:00) Chest, Single Ap (11/19/17 ) Ammonia (11/19/17 17:15) Electrocardiogram (11/19/17 ) Admit Order (Ed Use Only) (11/19/17 17:23) Red Blood Cells (Rbc) (11/19/17 16:00) Labs Laboratory Tests Test 11/19/17 16:00 White Blood Count 3.8 TH/MM3 Red Blood Count 4.19 MIL/MM3 Hemoglobin 13.7 GM/DL Hematocrit 38.4 % Mean Corpuscular Volume 91.7 FL Mean Corpuscular Hemoglobin 32.7 PG Mean Corpuscular Hemoglobin Concent 35.6 % Red Cell Distribution Width 13.5 % Platelet Count 66 TH/MM3 Mean Platelet Volume 7.5 FL Neutrophils (%) (Auto) 51.8 % Lymphocytes (%) (Auto) 40.6 % Monocytes (%) (Auto) 6.0 % Eosinophils (%) (Auto) 1.1 % Basophils (%) (Auto) 0.5 % Neutrophils # (Auto) 2.0 TH/MM3 Lymphocytes # (Auto) 1.5 TH/MM3 Monocytes # (Auto) 0.2 TH/MM3 Eosinophils # (Auto) 0.0 TH/MM3 Basophils # (Auto) 0.0 TH/MM3 CBC Comment AUTO DIFF Differential Comment AUTO DIFF CONFIRMED Prothrombin Time 12.2 SEC Prothromb Time International Ratio 1.2 RATIO Activated Partial Thromboplast Time 30.1 SEC Blood Urea Nitrogen 13 MG/DL Creatinine 0.88 MG/DL Random Glucose 304 MG/DL Calcium Level 8.3 MG/DL Magnesium Level 1.4 MG/DL Sodium Level 121 MEQ/L Potassium Level 3.8 MEQ/L Chloride Level 80 MEQ/L Carbon Dioxide Level 26.8 MEQ/L Anion Gap 14 MEQ/L Estimat Glomerular Filtration Rate 91 ML/MIN MDM Medical Decision Making Medical Screen Exam Complete: Yes Emergency Medical Condition: Yes Medical Record Reviewed: Yes Interpretation(s) Last Impressions Hip and Pelvis X-Ray 11/19/17 1547 Signed Impressions: Service Date/Time: Sunday, November 19, 2017 16:30 - CONCLUSION: 1. Left femoral neck fracture, as above. Ambrose Christine MD Chest X-Ray 11/19/17 0000 Signed Impressions: Service Date/Time: Sunday, November 19, 2017 16:45 - CONCLUSION: No acute disease. Harvinder Kirk MD CBC & BMP Diagram 11/19/17 16:00 Calcium Level 8.3 L, Magnesium Level 1.4 L Differential Diagnosis Fracture versus bruise versus contusion Narrative Course 52-year-old male that presents to the ED for evaluation of left hip injury. Labs and imaging was ordered. X-ray did show hip fracture. Case discussed in my attending who agrees with plan. Ortho was consulted and Dr. Morel agrees to admission to medicine. NPO after midnight. This was discussed with the patient and family were in agreement with admission. Labs were ordered. Patient was admitted to the [facility] care doctor Dr. Hobbs who agrees to admission to Dr. Modi. Diagnosis Primary Impression: Hip fracture, left Qualified Codes: S72.002A - Fracture of unspecified part of neck of left femur , initial encounter for closed fracture Additional Impression: Hyponatremia Admitting Information Admitting Physician Requests: Admit Arik Brown Nov 19, 2017 16:48
[2017-11-19 16:56] LABS: INTERNATIONAL NORMALIZED RATIO 1.2 RATIO; PROTHROMBIN TIME - PATIENT 12.2 SEC (9.8-11.6)
--- NOTE | 2017-11-19 17:06 | RADRPT ---
EXAM DATE/TIME: 11/19/2017 16:45 [facility] COMPARISON: CHEST SINGLE AP, May 02, 2017, 22:34. INDICATIONS : Evaluate for pneumonia, pneumothorax, and communicable diseases. MEDICAL HISTORY : None. SURGICAL HISTORY : None. ENCOUNTER: Initial ACUITY: 1 day PAIN SCORE: 0/10 LOCATION: chest FINDINGS: A single view of the chest demonstrates the lungs to be symmetrically aerated without evidence of mas s, infiltrate or effusion. The cardiomediastinal contours are unremarkable. Osseous structures are intact. CONCLUSION: No acute disease. Harvinder Kirk MD on November 19, 2017 at 17:04 Board Certified Radiologist. This report was verified electronically.
[2017-11-19 17:16] VITALS: BP 122/85; PULSE 96; RESP 17
[2017-11-19 17:18] LABS: BICARBONATE 26.8 MEQ/L (21.0-32.0); CALCIUM 8.3 MG/DL (8.5-10.1); CREATININE 0.88 MG/DL (0.60-1.30); MAGNESIUM 1.4 MG/DL (1.5-2.5)
--- NOTE | 2017-11-19 17:18 | RADRPT ---
EXAM DATE/TIME: 11/19/2017 16:30 [facility] COMPARISON: No previous studies available for comparison. INDICATIONS : Patient fell today and complains of left hip pain. MEDICAL HISTORY : None. SURGICAL HISTORY : None. ENCOUNTER: Initial ACUITY: 1 day PAIN SCORE: 10/10 LOCATION: Left Hip FINDINGS: Fracture of the left femoral neck with cephalad displacement of the distal fragment. Remaining osseou s structures appear intact. Soft tissues are within normal limits. CONCLUSION: 1. Left femoral neck fracture, as above. Ambrose Christine MD on November 19, 2017 at 17:16 Board Certified Radiologist. This report was verified electronically.
[2017-11-19] MEDS ORDERED: MAGNESIUM HYDROXIDE SUSP 30 ML CUP PO PRN (17:45)
[2017-11-19] MEDS ORDERED: NALOXONE HCL 0.4 MG/ML AMP IV PUSH PRN (17:45)
[2017-11-19] MEDS ORDERED: BISACODYL 10 MG SUPP RECTAL PRN (17:45)
[2017-11-19] MEDS ORDERED: SODIUM CHLORIDE 0.9% FLUSH 10 ML FLUSH IV FLUSH PRN (17:45)
[2017-11-19] MEDS ORDERED: SENNOSIDES 8.6 MG TAB PO PRN (17:45)
[2017-11-19] MEDS ORDERED: LACTULOSE SYRUP 20 GM/30 ML CUP PO PRN ×2 (17:45)
[2017-11-19] MEDS ORDERED: ONDANSETRON HCL 4 MG/2 ML VIAL IVP PRN (17:45)
[2017-11-19] MEDS: SODIUM CHLOR 0.9% 1000 ML INJ 1,000 ML IV SCH (18:08)
[2017-11-19] MEDS: INSULIN ASPART 1,000 UNITS/10 ML VIAL SQ SCH (18:08)
[2017-11-19 18:09] VITALS: BP 128/91
[2017-11-19 18:26] VITALS: BP 110/72; PULSE 104; RESP 16; TEMP 97.1; O2SAT 100
[2017-11-19 20:00] VITALS: BP 126/84; PULSE 104; PULSE 106; RESP 16; TEMP 96.5; O2SAT 100
[2017-11-19] MEDS ORDERED: CHLORHEXIDINE GLUCONATE 2 % 1 PACK (2 CLOTHS) TOPICAL PRN (20:45)
[2017-11-19] MEDS ORDERED: SODIUM CHLORID 0.9% 500 ML IV PRN (20:45)
[2017-11-19] MEDS ORDERED: LACTATED RINGER'S 1000 ML IV PRN (20:45)
[2017-11-19] MEDS ORDERED: POVIDONE IODINE 5% (ANTISEPSIS KIT) 4 APPLICATIONS EACH NARE PRN (20:45)
[2017-11-19] MEDS ORDERED: METOPROLOL TARTRATE 25 MG TAB PO PRN (20:45)
[2017-11-19] MEDS ORDERED: INSULIN ASPART SUPPLEMENTAL SCALE SQ SCH (21:00)
[2017-11-19] MEDS: SODIUM CHLORIDE 0.9% FLUSH 10 ML FLUSH IV FLUSH SCH (21:00)
--- NOTE | 2017-11-19 21:21 | HHI.HP ---
HPI Service [facility] Hospitalists Primary Care Physician Tyrese Stringer MD Admission Diagnosis acute left hip neck fracture Chief Complaint: accidental fall with left hip fracture Travel History International Travel<30 Days: No Contact w/Intl Traveler <30 Da: No Traveled to Known Affected Are: No History of Present Illness 52-year-old male that presents to the ED for evaluation of left hip injury. Per patient he tripped and fell today from a standing position. He landed straight on his left hip. He's not been able to move his left hip since. Ambulance was called and brought him here. She was given 8 of morphine with some relief but he still complains of severe pain. He denies any chest pain or head injury. He denies any blood thinners. He states that his only medical history is diabetes. Takes insulin for this. In er found to have left hip fracture and admitted. Review of Systems Musculoskeletal: COMPLAINS OF: Joint pain Past Family Social History Past Medical History anemia,varices,cirrhosis hypertension,thyroid disease,increase lipids Past Surgical History esophageal banding Reported Medications Multiple Vitamin 1 Tab 1 Tab PO DAILY Folic Acid 400 Mcg Tab 1 Mg PO DAILY Ferrous Gluconate 325 Mg Tab 325 Mg PO DAILY B-12 (Cyanocobalamin) 100 Mcg Tab 100 Mcg PO DAILY Tresiba Flextouch Pen Inj (Insulin Degludec Inj) 300 unit/3 ML Pen 25 Units SQ DAILY Lactulose Liq (Lactulose) 10 Gm/15 Ml Soln 30 Ml PO Q6H PRN Omeprazole 20 Mg Tab 20 Mg PO HS Levothyroxine (Levothyroxine Sodium) 88 Mcg Tab 88 Mcg PO DAILY Magnesium Oxide 400 Mg Tab 400 Mg PO DAILY Lasix (Furosemide) 20 Mg Tab 2 Allergies: Coded Allergies: No Known Allergies (Verified Allergy, Unknown, 11/19/17) Social History drinks 2 vodka daily Physical Exam Vital Signs Vital Signs Date Time Temp Pulse Resp B/P (MAP) Pulse Ox O2 Delivery O2 Flow Rate FiO2 11/19/17 20:00 96.5 104 16 126/84 (98) 100 11/19/17 20:00 106 11/19/17 18:26 97.1 104 16 110/72 (85) 100 11/19/17 18:09 98 17 128/91 (103) 100 Nasal Cannula 2.00 11/19/17 17:16 96 17 122/85 (97) Nasal Cannula 2.00 11/19/17 15:45 97.4 96 16 117/80 (92) 99 Physical Exam GENERAL: This is a well-nourished, well-developed patient, in no apparent distress. SKIN: No rashes, ecchymoses or lesions. Cool and dry. HEAD: Atraumatic. Normocephalic. No temporal or scalp tenderness. EYES: Pupils equal round and reactive. Extraocular motions intact. No scleral icterus. No injection or drainage. ENT: Nose without bleeding, purulent drainage or septal hematoma. Throat without erythema, tonsillar hypertrophy or exudate. Uvula midline. Airway patent. NECK: Trachea midline. No JVD or lymphadenopathy. Supple, nontender, no meningeal signs. CARDIOVASCULAR: Regular rate and rhythm without murmurs, gallops, or rubs. RESPIRATORY: Clear to auscultation. Breath sounds equal bilaterally. No wheezes , rales, or rhonchi. GASTROINTESTINAL: Abdomen soft, non-tender, nondistended. No hepato-splenomegaly , or palpable masses. No guarding. MUSCULOSKELETAL: Extremities without clubbing, cyanosis, or edema. Pain on movement left leg and hip NEUROLOGICAL: Awake and alert. Cranial nerves II through XII intact. Motor and sensory grossly within normal limits. Five out of 5 muscle strength in all muscle groups. Normal speech. Laboratory Laboratory Tests Test 11/19/17 16:00 11/19/17 17:30 White Blood Count 3.8 Red Blood Count 4.19 Hemoglobin 13.7 Hematocrit 38.4 Mean Corpuscular Volume 91.7 Mean Corpuscular Hemoglobin 32.7 Mean Corpuscular Hemoglobin Concent 35.6 Red Cell Distribution Width 13.5 Platelet Count 66 Mean Platelet Volume 7.5 Neutrophils (%) (Auto) 51.8 Lymphocytes (%) (Auto) 40.6 Monocytes (%) (Auto) 6.0 Eosinophils (%) (Auto) 1.1 Basophils (%) (Auto) 0.5 Neutrophils # (Auto) 2.0 Lymphocytes # (Auto) 1.5 Monocytes # (Auto) 0.2 Eosinophils # (Auto) 0.0 Basophils # (Auto) 0.0 CBC Comment AUTO DIFF Differential Comment AUTO DIFF CONFIRMED Prothrombin Time 12.2 Prothromb Time International Ratio 1.2 Activated Partial Thromboplast Time 30.1 Blood Urea Nitrogen 13 Creatinine 0.88 Random Glucose 304 Calcium Level 8.3 Magnesium Level 1.4 Sodium Level 121 Potassium Level 3.8 Chloride Level 80 Carbon Dioxide Level 26.8 Anion Gap 14 Estimat Glomerular Filtration Rate 91 Ammonia 32 Result Diagram: 11/19/17 1600 11/19/17 1600 Imaging Last 24 hours Impressions Hip and Pelvis X-Ray 11/19/17 1547 Signed Impressions: Service Date/Time: Sunday, November 19, 2017 16:30 - CONCLUSION: 1. Left femoral neck fracture, as above. Ambrose Christine MD Chest X-Ray 11/19/17 0000 Signed Impressions: Service Date/Time: Sunday, November 19, 2017 16:45 - CONCLUSION: No acute disease. Harvinder Kirk MD Course in er given pain meds started IV fluids Caprini VTE Risk Assessment Caprini VTE Risk Assessment: Mod/High Risk (score >= 2) Caprini Risk Assessment Model Point Value = 1 Point Value = 2 Point Value = 3 Point Value = 5 Age 41-60 Minor surgery BMI > 25 kg/m2 Swollen legs Varicose veins or History of unexplained or recurrent spontaneous Oral contraceptives or hormone replacement Sepsis (< 1 month) Serious lung disease, including pneumonia (< 1 month) Abnormal pulmonary function Acute myocardial infarction Congestive heart failure (< 1 month) History of inflammatory bowel disease Medical patient at bed rest Age 61-74 Arthroscopic surgery Major open surgery (> 45 min) Laparoscopic surgery (> 45 min) Malignancy Confined to bed (> 72 hours) Immobilizing plaster cast Central venous access Age >= 75 History of VTE Family history of VTE Factor V Leiden Prothrombin [id number] Lupus anticoagulant Anticardiolipin antibodies Elevated serum homocysteine Heparin-induced thrombocytopenia Other congenital or acquired thrombophilia Stroke (< 1 month) Elective arthroplasty Hip, pelvis, or leg fracture Acute spinal cord injury (< 1 month) Prophylaxis Regimen Total Risk Factor Score Risk Level Prophylaxis Regimen 0-1 Low Early ambulation 2 Moderate Order ONE of the following: *Sequential Compression Device (SCD) *Heparin 5000 units SQ BID 3-4 Higher Order ONE of the following medications: *Heparin 5000 units SQ TID *Enoxaparin/Lovenox 40 mg SQ daily (WT < 150 kg, CrCl > 30 mL/min) *Enoxaparin/Lovenox 30 mg SQ daily (WT < 150 kg, CrCl > 10-29 mL/min) *Enoxaparin/Lovenox 30 mg SQ BID (WT < 150 kg, CrCl > 30 mL/min) AND/OR *Sequential Compression Device (SCD) 5 or more Highest Order ONE of the following medications: *Heparin 5000 units SQ TID (Preferred with Epidurals) *Enoxaparin/Lovenox 40 mg SQ daily (WT < 150 kg, CrCl > 30 mL/min) *Enoxaparin/Lovenox 30 mg SQ daily (WT < 150 kg, CrCl > 10-29 mL/min) *Enoxaparin/Lovenox 30 mg SQ BID (WT < 150 kg, CrCl > 30 mL/min) AND *Sequential Compression Device (SCD) Assessment and Plan Problem List: (1) Hip fracture, left ICD Codes: S72.002A - Fracture of unspecified part of neck of left femur, initial encounter for closed fracture Status: Acute Plan: NPO after midnight for surgery in am pain meds (2) Hyponatremia ICD Codes: E87.1 - Hypo-osmolality and hyponatremia Status: Chronic Plan: will start some iv fluid and recheck am (3) Diabetes mellitus ICD Codes: E11.9 - Type 2 diabetes mellitus without complications Status: Chronic Plan: use sliding scale and when starts to eat can go back on regular home insulin Assessment and Plan further plan as case develops Code Status full Discussed Condition With patient Physician Certification 2 Midnight Certification Type: Admission for Inpatient Services Order for Inpatient Services The services are ordered in accordance with Medicare regulations or non- Medicare payer requirements, as applicable. In the case of services not specified as inpatient-only, they are appropriately provided as inpatient services in accordance with the 2-midnight benchmark. Estimated LOS (days): 3 3 days is the estimated time the patient will need to remain in the hospital, assuming treatment plan goals are met and no additional complications. Post-Hospital Plan: SNF Problem Qualifiers (1) Hip fracture, left: Qualified Codes: S72.002A - Fracture of unspecified part of neck of left femur , initial encounter for closed fracture Constantine Hobbs MD Nov 19, 2017 21:21
[2017-11-19] MEDS: DOCUSATE SODIUM 50 MG/SENNA 8.6 MG TAB PO SCH (21:33)
[2017-11-19] MEDS: PANTOPRAZOLE SOD 20 MG DELAYED RELEASE TAB PO SCH (21:33)
[2017-11-19] MEDS: HYDROmorphone HCL PF 2 MG/ML VIAL IV PUSH PRN (22:11)
[2017-11-19 23:00] VITALS: PULSE 98
[2017-11-19] MEDS ORDERED: GLUCAGON 1 MG/ML VIAL OTHER PRN (23:00)
[2017-11-19] MEDS ORDERED: PLEASE DISCONTINUE PREVIOUS SUPPLEMENTAL SCALE INSULIN ORDERS ONE (23:00)
[2017-11-19] MEDS ORDERED: DEXTROSE 50% IN WATER 50 ML VIAL(D50) IV PUSH PRN (23:00)
[2017-11-20] VITALS (10 sets, daily range): BP systolic 92–140; BP diastolic 59–81; PULSE 88–122; RESP 14–19; TEMP 96.6–98.2; O2SAT 95–100
[2017-11-20] MEDS: HYDROmorphone HCL PF 2 MG/ML VIAL IV PUSH PRN ×2 (01:58→06:00)
[2017-11-20] MEDS: SODIUM CHLOR 0.9% 1000 ML INJ 1,000 ML IV SCH ×5 (05:55→22:49)
[2017-11-20] MEDS: LEVOTHYROXINE SODIUM 88 MCG TAB PO SCH (05:59)
[2017-11-20] MEDS: FERROUS SULFATE 325 MG (65 MG ELEMENTAL IRON) TAB PO SCH (07:14)
[2017-11-20] MEDS: MAGNESIUM OXIDE 400 MG TAB PO SCH (07:14)
[2017-11-20] MEDS: CYANOCOBALAMIN 100 MCG TAB PO SCH (07:14)
[2017-11-20] MEDS: DOCUSATE SODIUM 50 MG/SENNA 8.6 MG TAB PO SCH ×2 (07:14→22:28)
[2017-11-20] MEDS: FOLIC ACID 1 MG TAB PO SCH (07:14)
[2017-11-20] MEDS: MULTIVITAMIN TAB PO SCH (07:14)
[2017-11-20] MEDS: FUROSEMIDE 20 MG TAB PO SCH (07:29)
[2017-11-20] MEDS: MEDIUM DOSE INSULIN NOVOLOG SUPPLEMENTAL SCALE SQ SCH ×4 (07:39→22:48)
[2017-11-20] MEDS: INSULIN ASPART 1,000 UNITS/10 ML VIAL SQ SCH ×3 (07:39→15:14)
[2017-11-20] MEDS ORDERED: GENTAMICIN SULFATE 80 MG/2 ML VIAL ONE (07:46)
[2017-11-20] MEDS: SODIUM CHLORIDE 0.9% FLUSH 10 ML FLUSH IV FLUSH SCH ×2 (07:54→22:47)
[2017-11-20] MEDS ORDERED: MEDIUM DOSE INSULIN NOVOLOG SUPPLEMENTAL SCALE SQ SCH (08:00)
[2017-11-20 08:39] LABS: AUTOMATED NEUTROPHIL # 5.3 TH/MM3 (1.8-7.7); BASOPHIL % 0.3 % (0.0-2.0); EOSINOPHIL % 0.4 % (0.0-4.0); HEMATOCRIT 36.4 % (39.0-51.0); HEMOGLOBIN 12.9 GM/DL (13.0-17.0); LYMPH % 18.8 % (9.0-44.0); LYMPHOCYTE # 1.4 TH/MM3 (1.0-4.8); MEAN CELL VOLUME 91.1 FL (80.0-100.0); MEAN CORPUSCULAR HEMOGLOBIN 32.2 PG (27.0-34.0); MEAN CORPUSCULAR HGB CONC 35.4 % (32.0-36.0); MEAN PLATELET VOLUME 7.4 FL (7.0-11.0); MONO % 6.7 % (0.0-8.0); MONOCYTE # 0.5 TH/MM3 (0-0.9); NEUT % 73.8 % (16.0-70.0); PLATELET COUNT 59 TH/MM3 (150-450); RED CELL DISTRIBUTION WIDTH 13.6 % (11.6-17.2); WHITE BLOOD COUNT 7.2 TH/MM3 (4.0-11.0)
[2017-11-20] MEDS ORDERED: DEXTROSE 50% IN WATER 50 ML SYRINGE ONE (08:53)
[2017-11-20] MEDS ORDERED: INSULIN DEGLUDEC SQ SCH (09:00)
[2017-11-20 09:04] LABS: BICARBONATE 30.6 MEQ/L (21.0-32.0); CALCIUM 8.3 MG/DL (8.5-10.1); CREATININE 1.02 MG/DL (0.60-1.30)
[2017-11-20] MEDS ORDERED: ceFAZolin 2 GM PREMIX 50 ML ONE (09:44)
[2017-11-20] MEDS ORDERED: SODIUM CHLOR 0.9% 250 ML INJ 250 ML ONE (09:44)
[2017-11-20] MEDS ORDERED: VANCOMYCIN HCL 1000 MG VIAL ONE (09:44)
[2017-11-20] MEDS ORDERED: TRANEXAMIC ACID INJ 1,000 MG/10 ML AMP ONE (10:07)
[2017-11-20] MEDS ORDERED: SODIUM CHLORIDE 0.9% INJ 50 ML ONE (10:11)
[2017-11-20] MEDS ORDERED: HYDR-3288 PO (11:12)
[2017-11-20] MEDS ORDERED: ASPI81CH6 CHEW (11:13)
[2017-11-20] MEDS ORDERED: ACETAMINOPHEN/HYDROcodone 325 MG/7.5 MG TAB PO PRN (11:15)
[2017-11-20] MEDS ORDERED: ONDANSETRON HCL 4 MG/2 ML VIAL IVP PRN (11:15)
[2017-11-20] MEDS ORDERED: MORPHINE SULFATE 2 MG/ML INJ IV PUSH PRN (11:15)
[2017-11-20] MEDS ORDERED: Post-op Orders (for Pharmacy) XX ONE (11:15)
[2017-11-20] MEDS ORDERED: diphenhydrAMINE HCL 50 MG/ML VIAL IV PUSH PRN (11:15)
[2017-11-20] MEDS ORDERED: ZOLPIDEM TARTRATE 5 MG TAB PO PRN (11:15)
[2017-11-20] MEDS ORDERED: BISACODYL 10 MG SUPP RECTAL PRN (11:15)
--- NOTE | 2017-11-20 11:33 | PD.ORT.PN ---
Subjective Post Op Day #: 0 Objective Vitals Vital Signs Date Time Temp Pulse Resp B/P (MAP) Pulse Ox O2 Delivery O2 Flow Rate FiO2 11/20/17 09:35 Room Air 2 11/20/17 09:35 96 16 122/79 (93) 99 11/20/17 09:25 98.2 98 14 131/76 98 11/20/17 09:15 98 16 131/76 (94) 100 11/20/17 09:00 101 16 119/73 (88) 99 11/20/17 08:45 97 16 114/73 (87) 99 11/20/17 08:35 98.5 100 16 115/71 (86) 92 11/20/17 08:35 Room Air 2 11/20/17 07:54 96.6 92 19 92/59 (70) 98 11/20/17 04:04 88 11/20/17 04:00 96.6 90 16 92/63 (73) 99 11/20/17 00:00 96.6 101 16 115/72 (86) 100 11/19/17 23:00 98 11/19/17 20:00 96.5 104 16 126/84 (98) 100 11/19/17 20:00 106 11/19/17 18:26 97.1 104 16 110/72 (85) 100 11/19/17 18:09 98 17 128/91 (103) 100 Nasal Cannula 2.00 11/19/17 17:16 96 17 122/85 (97) Nasal Cannula 2.00 11/19/17 15:45 97.4 96 16 117/80 (92) 99 I/O 11/19/17 11/19/17 11/19/17 11/20/17 11/20/17 11/20/17 07:00 15:00 23:00 07:00 15:00 23:00 Intake Total 480 ml 998 ml 2510 ml Output Total 1200 ml Balance 480 ml 998 ml 1310 ml Intake Oral 480 ml 0 ml IV Total 998 ml Blood Product IV Normal Saline Flush 10 ml Other 2500 ml Output Urine Total 1000 ml Estimated Blood Loss 200 ml # Voids 1 1 # Bowel Movements 0 0 Result Diagram: 11/20/17 0830 11/20/17 0830 Other Results Laboratory Tests Test 11/19/17 16:00 Prothromb Time International Ratio 1.2 RATIO Prothrombin Time 12.2 SEC (9.8-11.6) Imaging Last 24 hours Impressions Hip and Pelvis X-Ray 11/19/17 3627 Signed Impressions: Service Date/Time: Sunday, November 19, 2017 16:30 - CONCLUSION: 1. Left femoral neck fracture, as above. Ambrose Christine MD Assessment & Plan Ortho Post Op Day #: 0 Problem List: Assessment and Plan s/p L Bipolar Hemiarthroplasty POD#0 wbat - posterior hip precautions ok to maintain dressing unless saturated asa 81mg PT d/c planning rx in chart f/up dr. rodriguez 2 weeks Gareth Cortez Nov 20, 2017 11:33
[2017-11-20] MEDS ORDERED: MIDAZOLAM HCL 2 MG/2 ML VIAL ONE (11:38)
[2017-11-20] MEDS ORDERED: ROCURONIUM INJ 50 MG/5 ML SYRINGE IV PUSH ONE (12:00)
[2017-11-20] MEDS ORDERED: NORMOSOL R INJ 1,000 ML IV ONE (12:00)
[2017-11-20] MEDS ORDERED: DEXAMETHASONE SOD PHOS 4 MG/ML VIAL IV ONE (12:00)
[2017-11-20] MEDS ORDERED: LIDOCAINE HCL 1% PF 5 ML SYRINGE OTHER ONE (12:00)
[2017-11-20] MEDS ORDERED: PHENYLEPH/NS 1000 MCG/10 ML SYR IV ONE (12:00)
[2017-11-20] MEDS ORDERED: ESMOLOL HCL 100 MG/10 ML VIAL IV ONE (12:00)
[2017-11-20] MEDS ORDERED: PROPOFOL 200 MG/20 ML AMP IV ONE (12:00)
[2017-11-20] MEDS ORDERED: TRANEXAMIC ACID INJ 500 MG in SODIUM CHLORIDE 0.9% INJ 100 ML IV SCH (12:00)
[2017-11-20] MEDS ORDERED: ePHEDrine/NS 25 MG/5 ML SYRINGE IV ONE (12:00)
[2017-11-20] MEDS ORDERED: GLYCOPYRROLATE 1 MG/5 ML SYRINGE IV PUSH ONE (12:00)
[2017-11-20] MEDS ORDERED: ONDANSETRON HCL 4 MG/2 ML VIAL IV ONE (12:00)
[2017-11-20] MEDS ORDERED: NEOSTIGMINE 5 MG/5 ML SYRINGE IV PUSH ONE (12:00)
[2017-11-20] MEDS ORDERED: SODIUM CHLORID 0.9% 500 ML INJ 1,000 ML IV ONE (12:00)
[2017-11-20] MEDS: ACETAMINOPHEN/HYDROcodone 325 MG/7.5 MG TAB PO PRN ×3 (12:24→22:28)
--- NOTE | 2017-11-20 12:49 | RADRPT ---
EXAM DATE/TIME: 11/20/2017 11:37 [facility] COMPARISON: HIP LEFT (AP&LAT 2/3VWS) W AP PELVIS, November 19, 2017, 16:30. INDICATIONS : Post op repair of left hip fracture MEDICAL HISTORY : None. SURGICAL HISTORY : None. ENCOUNTER: Initial ACUITY: 1 day PAIN SCORE: 0/10 LOCATION: Left hip FINDINGS: There is a bipolar hip prosthesis seen on the left. This appears well placed. Air is seen in the soft tissues which is a normal postoperative finding. An acute fracture is not seen. The right hip joint is normally aligned. There is a levoscoliosis of the lumbar spine with associated degenerative change . CONCLUSION: Normal appearance following left bipolar hip prosthesis placement. Harvinder Dhillon MD on November 20, 2017 at 12:46 Board Certified Radiologist. This report was verified electronically.
--- NOTE | 2017-11-20 14:17 | MB ---
cc: JENA VICTOR DATE OF CONSULTATION: 11/20/2017 REASON FOR CONSULTATION: Left femoral neck fracture. HISTORY This patient is 52-year-old male who presents to [facility] emergency room after a trip and fall injury landing left hip. He had severe pain regards to left hip with which was unable stand bear weight ambulate or move the left hip since the injury and was called and he was taken to the emergency room x-rays confirm evidence of a displaced left femoral neck fracture was given morphine which gave some partial relief. No numbness and tingling pain is severe constant, he denies hitting his head and denies loss consciousness. He is not on any blood thinners. He has no other complaints of severe left hip pain which is constant throbbing. PAST MEDICAL HISTORY: 1. Past history is positive for severe alcoholism 2. cirrhotic liver disease 3. esophageal varicosities 4. anemia of chronic disease 5. Hypertension 6. thyroid disease 7. Hyperlipidemia 8. diabetes mellitus. PAST SURGICAL HISTORY: Esophageal surgery before. MEDICATIONS: 1. Lasix. 2. Magnesium. 3. Levothyroxine 4. Omeprazole 5. lactulose. 6. Insulin 7. B12. 8. Iron. 9. Folic acid. 10. Multivitamin. ALLERGIES NO KNOWN DRUG ALLERGIES. SOCIAL HISTORY Drinks two Vodka drinks per day. He states that he denies smoking or drugs. REVIEW OF SYSTEMS: Review of systems negative for 10 systems other than HPI. PHYSICAL EXAMINATION VITAL SIGNS: Temperature 97.4, pulse 96, respirations 16, blood pressure 117/87. The patient is a slightly frail male. He appears somewhat older than stated age lying in bed. He is in mild distress. SKIN: The skin is warm, dry, intact. HEAD, EYES, EARS, NOSE, AND THROAT: Normocephalic, atraumatic, Pupils round, he has slight scleral icterus. NECK: Neck is supple. LUNGS: Clear. HEART: Regular rate and rhythm. ABDOMEN: The abdomen is 1soft, nontender. EXTREMITIES: His left hip heels in a flexed position, pain with passive motion of the left hip. He can flex his toes distally but with pain limitation. NEUROLOGIC: He is awake, alert. LABORATORY FINDINGS: White blood cell count is a upon admission is 3.80. Hemoglobin this 13, hematocrit 38, platelets are 66, glucose 304. X-rays AP pelvis, AP lateral left hip shows a displaced left femoral neck fracture. INR is 1.2, creatinine 0.88, sodium 121. IMPRESSION 52-year-old male status post fall left displaced femoral neck fracture. He has insulin-dependent diabetes mellitus, end-stage liver disease with alcoholic cirrhosis, diabetes mellitus. PLAN Discussed diagnosis with the patient spoke about treatment options including option of non operative treatment, so still wants to go with the option of surgery which will consist of a bipolar hemiarthroplasty replacement. The risk of surgery discussed which include but limited to bleeding, infections, damage to nerves, or blood vessels, pain, fracture-dislocation, gait discrepancies, blood clots, even . The patient's pain is severe. The benefits of the risks and wishes to proceed with surgery. We are in the process of providing the patient a transfusion of platelets preoperatively as his platelets are low and he does have thrombocytopenia. Likely related to his chronic liver disease. We are also correcting his sodium and monitoring and improving his preoperative blood glucose levels, the surgical site has been marked, a written consent has been obtained and we will schedule surgery accordingly. MD MAHNAZ Moncada/calderon /10:50 AM /1:26 PM
--- NOTE | 2017-11-20 15:13 | HHI.PR ---
Subjective Remarks Pt seen post-operatively from his left hip arthroplasty Pt tired from surgery Pain is currently controlled Objective Vitals Vital Signs Date Time Temp Pulse Resp B/P (MAP) Pulse Ox O2 Delivery O2 Flow Rate FiO2 11/20/17 12:00 102 11/20/17 12:00 110 16 107/61 (76) 100 Nasal Cannula 4 11/20/17 11:45 101 16 113/71 (85) 100 Nasal Cannula 4 11/20/17 11:30 110 16 131/80 (97) 100 Nasal Cannula 4 11/20/17 11:27 98.5 114 16 141/99 (113) 100 Nasal Cannula 4 11/20/17 09:35 Room Air 2 11/20/17 09:35 96 16 122/79 (93) 99 11/20/17 09:25 98.2 98 14 131/76 98 11/20/17 09:15 98 16 131/76 (94) 100 11/20/17 09:00 101 16 119/73 (88) 99 11/20/17 08:45 97 16 114/73 (87) 99 11/20/17 08:35 98.5 100 16 115/71 (86) 92 11/20/17 08:35 Room Air 2 11/20/17 07:54 96.6 92 19 92/59 (70) 98 11/20/17 04:04 88 11/20/17 04:00 96.6 90 16 92/63 (73) 99 11/20/17 00:00 96.6 101 16 115/72 (86) 100 11/19/17 23:00 98 11/19/17 20:00 96.5 104 16 126/84 (98) 100 11/19/17 20:00 106 11/19/17 18:26 97.1 104 16 110/72 (85) 100 11/19/17 18:09 98 17 128/91 (103) 100 Nasal Cannula 2.00 11/19/17 17:16 96 17 122/85 (97) Nasal Cannula 2.00 11/19/17 15:45 97.4 96 16 117/80 (92) 99 11/20/17 11/20/17 11/21/17 15:00 23:00 07:00 Intake Total 2910 ml Output Total 1700 ml Balance 1210 ml Intake Oral 400 ml Blood Product IV Normal Saline Flush 10 ml Other 2500 ml Output Urine Total 1500 ml Estimated Blood Loss 200 ml Result Diagram: 11/20/17 0830 11/20/17 0830 Other Results Laboratory Tests Test 11/19/17 16:00 11/19/17 17:30 11/19/17 22:00 11/20/17 08:30 White Blood Count 3.8 TH/MM3 7.2 TH/MM3 Red Blood Count 4.19 MIL/MM3 4.00 MIL/MM3 Hemoglobin 13.7 GM/DL 12.9 GM/DL Hematocrit 38.4 % 36.4 % Mean Corpuscular Volume 91.7 FL 91.1 FL Mean Corpuscular Hemoglobin 32.7 PG 32.2 PG Mean Corpuscular Hemoglobin Concent 35.6 % 35.4 % Red Cell Distribution Width 13.5 % 13.6 % Platelet Count 66 TH/MM3 59 TH/MM3 Mean Platelet Volume 7.5 FL 7.4 FL Neutrophils (%) (Auto) 51.8 % 73.8 % Lymphocytes (%) (Auto) 40.6 % 18.8 % Monocytes (%) (Auto) 6.0 % 6.7 % Eosinophils (%) (Auto) 1.1 % 0.4 % Basophils (%) (Auto) 0.5 % 0.3 % Neutrophils # (Auto) 2.0 TH/MM3 5.3 TH/MM3 Lymphocytes # (Auto) 1.5 TH/MM3 1.4 TH/MM3 Monocytes # (Auto) 0.2 TH/MM3 0.5 TH/MM3 Eosinophils # (Auto) 0.0 TH/MM3 0.0 TH/MM3 Basophils # (Auto) 0.0 TH/MM3 0.0 TH/MM3 CBC Comment AUTO DIFF AUTO DIFF Differential Comment AUTO DIFF CONFIRMED AUTO DIFF CONFIRMED Prothrombin Time 12.2 SEC Prothromb Time International Ratio 1.2 RATIO Activated Partial Thromboplast Time 30.1 SEC Blood Urea Nitrogen 13 MG/DL 16 MG/DL Creatinine 0.88 MG/DL 1.02 MG/DL Random Glucose 304 MG/DL 108 MG/DL 86 MG/DL Calcium Level 8.3 MG/DL 8.3 MG/DL Magnesium Level 1.4 MG/DL Sodium Level 121 MEQ/L 127 MEQ/L Potassium Level 3.8 MEQ/L 4.0 MEQ/L Chloride Level 80 MEQ/L 89 MEQ/L Carbon Dioxide Level 26.8 MEQ/L 30.6 MEQ/L Anion Gap 14 MEQ/L 7 MEQ/L Estimat Glomerular Filtration Rate 91 ML/MIN 77 ML/MIN Ammonia 32 MCMOL/L Platelet Estimate LOW Platelet Morphology Comment NORMAL Imaging Last Impressions Hip and Pelvis X-Ray 11/20/17 1109 Signed Impressions: Service Date/Time: Monday, November 20, 2017 11:37 - CONCLUSION: Normal appearance following left bipolar hip prosthesis placement. Harvinder Dhillon MD Chest X-Ray 11/19/17 0000 Signed Impressions: Service Date/Time: Sunday, November 19, 2017 16:45 - CONCLUSION: No acute disease. Harvinder Kirk MD Last 24 hours Impressions Hip and Pelvis X-Ray 11/19/17 1547 Signed Impressions: Service Date/Time: Sunday, November 19, 2017 16:30 - CONCLUSION: 1. Left femoral neck fracture, as above. Ambrose Christine MD Chest X-Ray 11/19/17 0000 Signed Impressions: Service Date/Time: Sunday, November 19, 2017 16:45 - CONCLUSION: No acute disease. Harvinder Kirk MD Objective Remarks General: NAD, AAOx3 Chest: CTA Cardiac: REgular Abd: +BS, soft ND/NT : King cath in place Ext: No edema A/P Problem List: (1) Hip fracture, left ICD Codes: S72.002A - Fracture of unspecified part of neck of left femur, initial encounter for closed fracture Status: Acute Plan: Pt is a 52 y/o male with alcoholic liver cirrhosis, chronic alcohol use, GERD, and diabetes. He presented to the ED on 11/19/17 after he had a slip and fall at home landing on his left hip. Left hip fracture - Pt admitted with a left femoral neck fracture after a slip and fall - Pt underwent left hip bipolar hemiarthroplasty on 11/20/17 - Post-op pain control per Ortho - Constipation precautions - Supportive care - DVT prophylaxis per Ortho Hyponatremia - Pt receiving IVF - Monitor labs Cirrhosis with alcoholism - Pt is off Propranolol - Cont. Folic acid/MVI/B12 - Pt is still drinking alcohol, 1/2 pint of vodka daily - Alcohol cessation - He aminah any hx of DTs - Alcohol withdrawal precautions Diabetes mellitus - NovoLog SSI - Accu checks GERD (gastroesophageal reflux disease) - PPI (2) Hyponatremia ICD Codes: E87.1 - Hypo-osmolality and hyponatremia Status: Chronic (3) Diabetes mellitus ICD Codes: E11.9 - Type 2 diabetes mellitus without complications Status: Chronic Problem Qualifiers (1) Hip fracture, left: Qualified Codes: S72.002A - Fracture of unspecified part of neck of left femur , initial encounter for closed fracture Jaylyn Sarmiento Nov 20, 2017 15:13
--- NOTE | 2017-11-20 19:16 | MP ---
cc: JENA VICTOR M.D. DATE OF SURGERY: 11/20/2017. PREOPERATIVE DIAGNOSIS: Left femoral neck fracture. POSTOPERATIVE DIAGNOSES: Left femoral neck fracture. OPERATIVE PROCEDURE PERFORMED: Left bipolar hemiarthroplasty replacement. SURGEON: Dr. Jena Victor. TIN POURER: Arturo Bonilla ANESTHESIA: General. ESTIMATED BLOOD LOSS: 200 cc. COMPLICATIONS: None. IMPLANTS USED: DePuy Corail size 13 Press-Fit standard offset femoral stem. Size 49 cup. 28 head. +1 neck. JUSTIFICATION FOR THE PROCEDURE: The patient is a 52-year-old male who fell sustaining a displaced left femoral neck fracture. He has multiple medical comorbidities including alcoholic liver cirrhosis, insulin-dependent diabetes mellitus, and thrombocytopenia. He was taken to the [facility] Emergency Room and x-rays confirmed the above-named findings. Orthopedic surgery was consulted. The patient was counselled as to the risks, benefits and alternatives to the above-named proposed surgical procedure and did wish to proceed with surgery. DESCRIPTION OF THE PROCEDURE IN DETAIL: A written consent WAS obtained. The patient was identified by name and was taken to the operating room and placed supine. General anesthesia was administered as well as 2 grams of IV Ancef and 1 gram of IV Vancomycin. The patient carefully turned the right lateral decubitus position and a lateral arm roll was placed. All bony prominences and pressure points were well padded. The left hip and left lower extremity were prepped and draped using isopropyl alcohol, Hibiclens solution and Chloraprep solution. After a time-out was performed, a large incision was made over the posterolateral aspect of the left hip. The fascial layer was incised. The piriformis capsule was incised and tagged with #2 FiberWire suture. The fractured femoral head and neck component was removed. An oscillating saw was used to perform a femoral neck cut. A box cutting osteotome was used to gain entrance into the intramedullary canal of the femur and this was followed by a canal finder and lateralizing reamer. Sequential broaching up to size 13 and this was followed by calcar planer. Trial head and neck combinations were evaluated and the final components were implanted. With the current components, the leg achieved full extension and external rotation without evidence of anterior instability or impingement. The hip could be flexed 90 degrees and internally rotated to 70 degrees without evidence of posterior instability. The soft tissue tension felt appropriate. Clinically the leg lengths felt relatively symmetric. The surgical wound was thoroughly irrigated with sterile saline pulsed lavage and antibiotic-impregnated solution. The piriformis capsule was primarily repaired with #2 FiberWire suture. The fascial layer was closed with #1 Vicryl suture. The subcutaneous layer was closed with 3-0 Vicryl suture and the skin was closed with Dermabond. Sterile dressings were applied. The patient tolerated the procedure well and had no intraoperative complications noted. NOTE: Eliud Cortez, physician assistant professor of life sciences-certified, was present during the entire procedure to include patient positioning and the procedure itself. The medical necessity of a physician assistant professor of life sciences was indicated in this case due to the complexity of the procedure. He assisted with appropriate manipulation of the leg and also retraction of muscles, tendons, bone and neurovascular structures. He assisted with preparation of bone and implantation of the prosthetic replacements. MD MAHNAZ Moncada/LAMIN /10:54 AM /6:52 PM
[2017-11-20] MEDS: PANTOPRAZOLE SOD 20 MG DELAYED RELEASE TAB PO SCH (22:27)
[2017-11-21] VITALS (7 sets, daily range): BP systolic 106–132; BP diastolic 70–84; PULSE 90–106; RESP 16–18; TEMP 96–97.7; O2SAT 95–99
[2017-11-21] MEDS: LEVOTHYROXINE SODIUM 88 MCG TAB PO SCH (04:46)
[2017-11-21] MEDS: ACETAMINOPHEN/HYDROcodone 325 MG/7.5 MG TAB PO PRN ×5 (04:47→21:50)
--- NOTE | 2017-11-21 07:22 | PD.ORT.PN ---
Subjective Subjective Remarks Patient resting comfortable this morning. States left hip pain well controlled. No acute events Objective Vitals Vital Signs Date Time Temp Pulse Resp B/P (MAP) Pulse Ox O2 Delivery O2 Flow Rate FiO2 11/21/17 03:50 96.7 103 18 121/76 (91) 95 11/20/17 23:36 98.2 109 18 138/81 (100) 96 11/20/17 19:09 97.4 106 18 140/81 (100) 95 11/20/17 15:10 96.6 122 18 92/67 (75) 100 11/20/17 15:02 100 3.00 11/20/17 12:00 102 11/20/17 12:00 110 16 107/61 (76) 100 Nasal Cannula 4 11/20/17 11:45 101 16 113/71 (85) 100 Nasal Cannula 4 11/20/17 11:30 110 16 131/80 (97) 100 Nasal Cannula 4 11/20/17 11:27 98.5 114 16 141/99 (113) 100 Nasal Cannula 4 11/20/17 09:35 Room Air 2 11/20/17 09:35 96 16 122/79 (93) 99 11/20/17 09:25 98.2 98 14 131/76 98 11/20/17 09:15 98 16 131/76 (94) 100 11/20/17 09:00 101 16 119/73 (88) 99 11/20/17 08:45 97 16 114/73 (87) 99 11/20/17 08:35 98.5 100 16 115/71 (86) 92 11/20/17 08:35 Room Air 2 11/20/17 07:54 96.6 92 19 92/59 (70) 98 I/O 11/20/17 11/20/17 11/20/17 11/21/17 11/21/17 11/21/17 07:00 15:00 23:00 07:00 15:00 23:00 Intake Total 998 ml 3228 ml 480 ml 480 ml Output Total 1700 ml 300 ml 275 ml Balance 998 ml 1528 ml 180 ml 205 ml Intake Oral 0 ml 400 ml 480 ml 480 ml IV Total 998 ml Platelets 318 ml Blood Product IV Normal Saline Flush 10 ml Other 2500 ml Output Urine Total 1500 ml 300 ml 275 ml Estimated Blood Loss 200 ml # Voids 1 # Bowel Movements 0 0 0 Result Diagram: 11/20/17 0830 11/20/17 0830 Imaging Last 24 hours Impressions Hip and Pelvis X-Ray 11/19/17 1547 Signed Impressions: Service Date/Time: Sunday, November 19, 2017 16:30 - CONCLUSION: 1. Left femoral neck fracture, as above. Ambrose Christine MD Objective Remarks Awake, alert, no acute distress Dressing in place without drainage. Left lower extremity: Neurovascular intact, no calf tenderness. Brisk cap refill Assessment & Plan Assessment and Plan s/p L Bipolar Hemiarthroplasty POD#1 wbat - posterior hip precautions ok to maintain dressing unless saturated asa 81mg PT d/c planning rx in chart f/up dr. rodriguez 2 weeks. Patient has not mobilized with PT yet. Likely will be ready for discharge Wednesday or Wednesday. Rosalinda Lawrence MD Nov 21, 2017 07:22
[2017-11-21] MEDS: INSULIN ASPART 1,000 UNITS/10 ML VIAL SQ SCH ×3 (08:00→17:00)
[2017-11-21] MEDS: MEDIUM DOSE INSULIN NOVOLOG SUPPLEMENTAL SCALE SQ SCH ×4 (08:00→21:00)
--- NOTE | 2017-11-21 08:45 | HHI.PR ---
Subjective Remarks Pt is awake and reports that his pain is well controlled. He reports that he ambulated a few steps with PT yesterday Family would like the pt placed at SNF at the time of discharge Objective Vitals Vital Signs Date Time Temp Pulse Resp B/P (MAP) Pulse Ox O2 Delivery O2 Flow Rate FiO2 11/21/17 03:50 96.7 103 18 121/76 (91) 95 11/20/17 23:36 98.2 109 18 138/81 (100) 96 11/20/17 19:09 97.4 106 18 140/81 (100) 95 11/20/17 15:10 96.6 122 18 92/67 (75) 100 11/20/17 15:02 100 3.00 11/20/17 12:00 102 11/20/17 12:00 110 16 107/61 (76) 100 Nasal Cannula 4 11/20/17 11:45 101 16 113/71 (85) 100 Nasal Cannula 4 11/20/17 11:30 110 16 131/80 (97) 100 Nasal Cannula 4 11/20/17 11:27 98.5 114 16 141/99 (113) 100 Nasal Cannula 4 11/20/17 09:35 Room Air 2 11/20/17 09:35 96 16 122/79 (93) 99 11/20/17 09:25 98.2 98 14 131/76 98 11/20/17 09:15 98 16 131/76 (94) 100 11/20/17 09:00 101 16 119/73 (88) 99 11/20/17 08:45 97 16 114/73 (87) 99 Result Diagram: 11/20/1782911/20/17829 Other Results Laboratory Tests Test 11/19/17 16:00 11/19/17 17:30 11/19/17 22:00 11/20/17 08:30 White Blood Count 3.8 TH/MM3 7.2 TH/MM3 Red Blood Count 4.19 MIL/MM3 4.00 MIL/MM3 Hemoglobin 13.7 GM/DL 12.9 GM/DL Hematocrit 38.4 % 36.4 % Mean Corpuscular Volume 91.7 FL 91.1 FL Mean Corpuscular Hemoglobin 32.7 PG 32.2 PG Mean Corpuscular Hemoglobin Concent 35.6 % 35.4 % Red Cell Distribution Width 13.5 % 13.6 % Platelet Count 66 TH/MM3 59 TH/MM3 Mean Platelet Volume 7.5 FL 7.4 FL Neutrophils (%) (Auto) 51.8 % 73.8 % Lymphocytes (%) (Auto) 40.6 % 18.8 % Monocytes (%) (Auto) 6.0 % 6.7 % Eosinophils (%) (Auto) 1.1 % 0.4 % Basophils (%) (Auto) 0.5 % 0.3 % Neutrophils # (Auto) 2.0 TH/MM3 5.3 TH/MM3 Lymphocytes # (Auto) 1.5 TH/MM3 1.4 TH/MM3 Monocytes # (Auto) 0.2 TH/MM3 0.5 TH/MM3 Eosinophils # (Auto) 0.0 TH/MM3 0.0 TH/MM3 Basophils # (Auto) 0.0 TH/MM3 0.0 TH/MM3 CBC Comment AUTO DIFF AUTO DIFF Differential Comment AUTO DIFF CONFIRMED AUTO DIFF CONFIRMED Prothrombin Time 12.2 SEC Prothromb Time International Ratio 1.2 RATIO Activated Partial Thromboplast Time 30.1 SEC Blood Urea Nitrogen 13 MG/DL 16 MG/DL Creatinine 0.88 MG/DL 1.02 MG/DL Random Glucose 304 MG/DL 108 MG/DL 86 MG/DL Calcium Level 8.3 MG/DL 8.3 MG/DL Magnesium Level 1.4 MG/DL Sodium Level 121 MEQ/L 127 MEQ/L Potassium Level 3.8 MEQ/L 4.0 MEQ/L Chloride Level 80 MEQ/L 89 MEQ/L Carbon Dioxide Level 26.8 MEQ/L 30.6 MEQ/L Anion Gap 14 MEQ/L 7 MEQ/L Estimat Glomerular Filtration Rate 91 ML/MIN 77 ML/MIN Ammonia 32 MCMOL/L Platelet Estimate LOW Platelet Morphology Comment NORMAL Imaging Last Impressions Hip and Pelvis X-Ray 11/20/17 1109 Signed Impressions: Service Date/Time: Monday, November 20, 2017 11:37 - CONCLUSION: Normal appearance following left bipolar hip prosthesis placement. Harvinder Dhillon MD Chest X-Ray 11/19/17 0000 Signed Impressions: Service Date/Time: Sunday, November 19, 2017 16:45 - CONCLUSION: No acute disease. Harvinder Kirk MD Last 24 hours Impressions Hip and Pelvis X-Ray 11/19/17 1547 Signed Impressions: Service Date/Time: Sunday, November 19, 2017 16:30 - CONCLUSION: 1. Left femoral neck fracture, as above. Ambrose Christine MD Chest X-Ray 11/19/17 0000 Signed Impressions: Service Date/Time: Sunday, November 19, 2017 16:45 - CONCLUSION: No acute disease. Harvinder Kirk MD Objective Remarks General: NAD, AAOx3 Chest: CTA Cardiac: Regular Abd: +BS, soft ND/NT : King cath in place Ext: No edema A/P Problem List: (1) Hip fracture, left ICD Codes: S72.002A - Fracture of unspecified part of neck of left femur, initial encounter for closed fracture Status: Acute Plan: Pt is a 52 y/o male with alcoholic liver cirrhosis, chronic alcohol use, GERD, and diabetes. He presented to the ED on 11/19/17 after he had a slip and fall at home landing on his left hip. Left hip fracture - Pt admitted with a left femoral neck fracture after a slip and fall - Pt underwent left hip bipolar hemiarthroplasty on 11/20/17 - Post-op pain control per Ortho - Constipation precautions - Supportive care - DVT prophylaxis per Ortho Hyponatremia - Pt receiving IVF - Await repeat labs for today Cirrhosis with alcoholism - Pt is off Propranolol - Cont. Folic acid/MVI/B12 - Pt is still drinking alcohol, 1/2 pint of vodka daily - Alcohol cessation - He denies any hx of DTs - Alcohol withdrawal precautions Diabetes mellitus - NovoLog SSI - Accu checks GERD (gastroesophageal reflux disease) - PPI (2) Hyponatremia ICD Codes: E87.1 - Hypo-osmolality and hyponatremia Status: Chronic (3) Diabetes mellitus ICD Codes: E11.9 - Type 2 diabetes mellitus without complications Status: Chronic Assessment and Plan Patient examined. Assessment and plan formulated with Jaylyn Sarmiento PA-C. I agree with the above. hip fx. pt wants snf and pt wants hhc/pt. plan for d/c tomorrow. Problem Qualifiers (1) Hip fracture, left: Qualified Codes: S72.002A - Fracture of unspecified part of neck of left femur , initial encounter for closed fracture Jaylyn Sarmiento Nov 21, 2017 08:45 Jamie Sy MD Nov 21, 2017 12:57
[2017-11-21 09:17] LABS: HEMOGLOBIN 10.1 GM/DL (13.0-17.0); MEAN CELL VOLUME 93.2 FL (80.0-100.0); MEAN CORPUSCULAR HEMOGLOBIN 32.6 PG (27.0-34.0); MEAN CORPUSCULAR HGB CONC 34.9 % (32.0-36.0); MEAN PLATELET VOLUME 7.7 FL (7.0-11.0); PLATELET COUNT 48 TH/MM3 (150-450); RED BLOOD COUNT 3.11 MIL/MM3 (4.50-5.90); RED CELL DISTRIBUTION WIDTH 13.3 % (11.6-17.2); WHITE BLOOD COUNT 6.9 TH/MM3 (4.0-11.0)
[2017-11-21 09:27] LABS: BICARBONATE 28.1 MEQ/L (21.0-32.0); CALCIUM 7.8 MG/DL (8.5-10.1); CREATININE 0.83 MG/DL (0.60-1.30); MAGNESIUM 1.4 MG/DL (1.5-2.5)
[2017-11-21] MEDS: CYANOCOBALAMIN 100 MCG TAB PO SCH (09:41)
[2017-11-21] MEDS: FERROUS SULFATE 325 MG (65 MG ELEMENTAL IRON) TAB PO SCH (09:41)
[2017-11-21] MEDS: DOCUSATE SODIUM 50 MG/SENNA 8.6 MG TAB PO SCH ×2 (09:41→20:58)
[2017-11-21] MEDS: MULTIVITAMIN TAB PO SCH (09:41)
[2017-11-21] MEDS: FUROSEMIDE 20 MG TAB PO SCH (09:41)
[2017-11-21] MEDS: FOLIC ACID 1 MG TAB PO SCH (09:41)
[2017-11-21] MEDS: MAGNESIUM OXIDE 400 MG TAB PO SCH (09:42)
[2017-11-21] MEDS: SODIUM CHLORIDE 0.9% FLUSH 10 ML FLUSH IV FLUSH SCH ×2 (09:42→21:04)
[2017-11-21] MEDS: MAGNESIUM SULFATE 1 GM PREMIX 100 ML IV SCH ×2 (13:16→14:50)
--- NOTE | 2017-11-21 14:08 | EKG ---
Date Performed: 11/19/2017 Time Performed: 17:23:06 PTAGE: 52 years EKG: SINUS TACHYCARDIA LEFT AXIS DEVIATION Compared to prior tracing no significant change ABNOR MAL ECG PREVIOUS TRACING : 05/02/2017 22.14 DOCTOR: José Miguel De Interpretating Date/Time 11/21/2017 14:07:16
[2017-11-21] MEDS: SODIUM CHLOR 0.9% 1000 ML INJ 1,000 ML IV SCH (18:05)
[2017-11-21] MEDS: DOCUSATE SODIUM 100 MG CAP PO SCH (20:58)
[2017-11-21] MEDS: PANTOPRAZOLE SOD 20 MG DELAYED RELEASE TAB PO SCH (20:59)
[2017-11-21] MEDS: MULTIVITAMINS/MINERALS THERAPEUTIC TAB PO SCH (20:59)
[2017-11-22] VITALS (8 sets, daily range): BP systolic 103–130; BP diastolic 66–86; PULSE 91–112; RESP 15–18; TEMP 96.3–97.5; O2SAT 95–98
[2017-11-22] MEDS: SODIUM CHLOR 0.9% 1000 ML INJ 1,000 ML IV SCH ×3 (06:12→20:52)
[2017-11-22] MEDS: ACETAMINOPHEN/HYDROcodone 325 MG/7.5 MG TAB PO PRN ×4 (06:18→22:24)
[2017-11-22] MEDS: LEVOTHYROXINE SODIUM 88 MCG TAB PO SCH (06:18)
[2017-11-22 07:28] LABS: HEMOGLOBIN 9.7 GM/DL (13.0-17.0); MEAN CELL VOLUME 93.1 FL (80.0-100.0); MEAN CORPUSCULAR HEMOGLOBIN 32.4 PG (27.0-34.0); MEAN CORPUSCULAR HGB CONC 34.8 % (32.0-36.0); MEAN PLATELET VOLUME 7.7 FL (7.0-11.0); PLATELET COUNT 49 TH/MM3 (150-450); RED CELL DISTRIBUTION WIDTH 13.3 % (11.6-17.2); WHITE BLOOD COUNT 6.5 TH/MM3 (4.0-11.0)
[2017-11-22 07:46] LABS: BICARBONATE 26.7 MEQ/L (21.0-32.0); CALCIUM 7.8 MG/DL (8.5-10.1); CREATININE 0.67 MG/DL (0.60-1.30); MAGNESIUM 1.5 MG/DL (1.5-2.5)
[2017-11-22] MEDS: MEDIUM DOSE INSULIN NOVOLOG SUPPLEMENTAL SCALE SQ SCH ×4 (08:00→20:52)
[2017-11-22] MEDS: FOLIC ACID 1 MG TAB PO SCH (08:31)
[2017-11-22] MEDS: CYANOCOBALAMIN 100 MCG TAB PO SCH (08:31)
[2017-11-22] MEDS: MULTIVITAMIN TAB PO SCH (08:31)
[2017-11-22] MEDS: DOCUSATE SODIUM 50 MG/SENNA 8.6 MG TAB PO SCH ×2 (08:31→20:52)
[2017-11-22] MEDS: MULTIVITAMINS/MINERALS THERAPEUTIC TAB PO SCH ×2 (08:31→20:51)
[2017-11-22] MEDS: FUROSEMIDE 20 MG TAB PO SCH (08:31)
[2017-11-22] MEDS: DOCUSATE SODIUM 100 MG CAP PO SCH ×2 (08:31→20:52)
[2017-11-22] MEDS: MAGNESIUM OXIDE 400 MG TAB PO SCH (08:31)
[2017-11-22] MEDS: FERROUS SULFATE 325 MG (65 MG ELEMENTAL IRON) TAB PO SCH (08:31)
[2017-11-22] MEDS: SODIUM CHLORIDE 0.9% FLUSH 10 ML FLUSH IV FLUSH SCH ×2 (08:32→20:52)
[2017-11-22] MEDS: INSULIN ASPART 1,000 UNITS/10 ML VIAL SQ SCH ×3 (08:40→16:48)
--- NOTE | 2017-11-22 14:10 | PD.ORT.PN ---
Subjective Post Op Day #: 2 Subjective Remarks Postoperative day 2 left bipolar hip Patient is sitting upright in bed. He states his pain is better controlled today. He states he does not feel ready for discharge to rehabilitation today but most likely tomorrow. No other complaints Objective Vitals Vital Signs Date Time Temp Pulse Resp B/P (MAP) Pulse Ox O2 Delivery O2 Flow Rate FiO2 11/22/17 12:00 97.4 98 18 129/84 (99) 98 11/22/17 08:00 91 11/22/17 08:00 97.2 99 18 117/86 (96) 97 11/22/17 04:24 96.8 93 16 111/67 (82) 95 11/22/17 00:00 97.4 98 18 109/68 (82) 96 11/21/17 20:00 97.7 90 16 106/70 (82) 96 11/21/17 18:35 102 11/21/17 15:15 96.0 104 16 110/71 (84) 95 I/O 11/21/17 11/21/17 11/21/17 11/22/17 11/22/17 11/22/17 07:00 15:00 23:00 07:00 15:00 23:00 Intake Total 580 ml 820 ml 1100 ml 520 ml Output Total 275 ml 1200 ml 225 ml Balance 305 ml -380 ml 875 ml 520 ml Intake Oral 480 ml 720 ml 520 ml IV Total 100 ml 100 ml 1100 ml Output Urine Total 275 ml 1200 ml 225 ml # Voids 0 2 # Bowel Movements 0 0 0 Result Diagram: 11/22/17 0605 11/22/17 0605 Imaging Last 24 hours Impressions Hip and Pelvis X-Ray 11/19/17 1547 Signed Impressions: Service Date/Time: Sunday, November 19, 2017 16:30 - CONCLUSION: 1. Left femoral neck fracture, as above. Ambrose Christine MD Objective Remarks Awake, alert, no acute distress Dressing in place without drainage. Left lower extremity: Neurovascular intact, no calf tenderness. Brisk cap refill Assessment & Plan Ortho Post Op Day #: 2 Problem List: (1) Hip fracture, left ICD Codes: S72.002A - Fracture of unspecified part of neck of left femur, initial encounter for closed fracture Status: Acute Qualifiers: Qualified Codes: S72.002A - Fracture of unspecified part of neck of left femur, initial encounter for closed fracture Assessment and Plan s/p L Bipolar Hemiarthroplasty POD#2, Kevin wbat - posterior hip precautions ok to maintain dressing unless saturated asa 81mg PT rx in chart Discharge planning - most likely tomorrow to rehab f/up dr. rodriguez 2 weeks. Ciarra Leslie Nov 22, 2017 14:10
--- NOTE | 2017-11-22 14:23 | HHI.DCPOC ---
Discharge Care Plan Diagnosis: (1) Hyponatremia (2) Diabetes mellitus Goals to Promote Your Health * To prevent worsening of your condition and complications * To maintain your health at the optimal level Directions to Meet Your Goals Take your medications as prescribed Follow your dietary instruction Follow activity as directed Keep your appointments as scheduled Take your immunizations and boosters as scheduled If your symptoms worsen call your PCP, if no PCP go to Urgent Care Center or Emergency Room Smoking is Dangerous to Your Health. Avoid second hand smoke Call the 24-hour hour crisis hotline for domestic abuse at Daniel Garcia DO Nov 22, 2017 14:23
[2017-11-22] MEDS ORDERED: LORA-474 PO (14:33)
--- NOTE | 2017-11-22 14:34 | HHI.DS ---
Discharge Summary Admission Date Nov 19, 2017 at 17:25 Discharge Date: Nov 23, 2017 Admitting Diagnosis acute left hip neck fracture (1) Hip fracture, left Diagnosis: Principal ICD Codes: S72.002A - Fracture of unspecified part of neck of left femur, initial encounter for closed fracture Status: Acute (2) Hyponatremia Diagnosis: Secondary ICD Codes: E87.1 - Hypo-osmolality and hyponatremia Status: Chronic (3) Diabetes mellitus Diagnosis: Principal ICD Codes: E11.9 - Type 2 diabetes mellitus without complications Status: Chronic Consultants Dr. Gareth Brown, Orthopedic Surgeon Brief History 52-year-old male that presents to the ED for evaluation of left hip injury. Per patient he tripped and fell today from a standing position. He landed straight on his left hip. He's not been able to move his left hip since. Ambulance was called and brought him here. She was given 8 of morphine with some relief but he still complains of severe pain. He denies any chest pain or head injury. He denies any blood thinners. He states that his only medical history is diabetes. Takes insulin for this. In er found to have left hip fracture and admitted. CBC/BMP: 11/22/17 0605 11/22/17 0605 Significant Findings Laboratory Tests Test 11/19/17 16:00 11/19/17 17:30 11/19/17 22:00 11/20/17 08:30 White Blood Count 3.8 TH/MM3 (4.0-11.0) Red Blood Count 4.19 MIL/MM3 (4.50-5.90) 4.00 MIL/MM3 (4.50-5.90) Hematocrit 38.4 % (39.0-51.0) 36.4 % (39.0-51.0) Platelet Count 66 TH/MM3 (150-450) 59 TH/MM3 (150-450) Prothrombin Time 12.2 SEC (9.8-11.6) Random Glucose 304 MG/DL (74-106) 108 MG/DL (74-106) Calcium Level 8.3 MG/DL (8.5-10.1) 8.3 MG/DL (8.5-10.1) Magnesium Level 1.4 MG/DL (1.5-2.5) Sodium Level 121 MEQ/L (136-145) 127 MEQ/L (136-145) Chloride Level 80 MEQ/L (98-107) 89 MEQ/L (98-107) Hemoglobin 12.9 GM/DL (13.0-17.0) Neutrophils (%) (Auto) 73.8 % (16.0-70.0) Platelet Estimate LOW (NORMAL) Estimat Glomerular Filtration Rate 77 ML/MIN (>89) Test 11/21/17 08:12 11/22/17 06:05 Red Blood Count 3.11 MIL/MM3 (4.50-5.90) 3.00 MIL/MM3 (4.50-5.90) Hemoglobin 10.1 GM/DL (13.0-17.0) 9.7 GM/DL (13.0-17.0) Hematocrit 29.0 % (39.0-51.0) 28.0 % (39.0-51.0) Platelet Count 48 TH/MM3 (150-450) 49 TH/MM3 (150-450) Random Glucose 69 MG/DL (74-106) 116 MG/DL (74-106) Calcium Level 7.8 MG/DL (8.5-10.1) 7.8 MG/DL (8.5-10.1) Magnesium Level 1.4 MG/DL (1.5-2.5) Sodium Level 133 MEQ/L (136-145) 133 MEQ/L (136-145) PE at Discharge General: NAD, AAOx3 Chest: CTA Cardiac: Regular Abd: +BS, soft ND/NT : King cath in place Ext: No edema Hospital Course (1) Hip fracture, left ICD Codes: S72.002A - Fracture of unspecified part of neck of left femur, initial encounter for closed fracture Status: Acute Plan: Pt is a 52 y/o male with alcoholic liver cirrhosis, chronic alcohol use, GERD, and diabetes. He presented to the ED on 11/19/17 after he had a slip and fall at home landing on his left hip. Left hip fracture - Pt admitted with a left femoral neck fracture after a slip and fall - Pt underwent left hip bipolar hemiarthroplasty on 11/20/[address] Gareth vazquez prn pain - Pt has chronic thrombocytopenia - Pt placed on ASA only by Orthopedics for DVT prophylaxis - discharge to SNF 11/23/16 - see discharge orders Hyponatremia - Pt received IVF - improved from admission Cirrhosis with alcoholism - Pt is off Propranolol - Cont. Folic acid/MVI/B12 - Pt is still drinking alcohol, 1/2 pint of vodka daily - Alcohol cessation - He denies any hx of DTs - Alcohol withdrawal precautions Diabetes mellitus - NovoLog SSI - Accu checks GERD (gastroesophageal reflux disease) - PPI (2) Hyponatremia ICD Codes: E87.1 - Hypo-osmolality and hyponatremia Status: Chronic (3) Diabetes mellitus ICD Codes: E11.9 - Type 2 diabetes mellitus without complications Pt Condition on Discharge: Stable Discharge Disposition: Discharge to SNF Discharge Instructions DIET: Follow Instructions for: Diabetic Diet Activities you can perform: Non Weight Bearing Other Activity Instructions: non-weight bearing on operative leg please see orthopedic orders for more details Follow up Referrals: Orthopedics - 1 Week with Gareth Brown MD PCP Follow-up - [address] Tyrese Larsen f/u with PCP, Dr. Tyrese Larsen, one week after discharge from SNF New Medications: Aspirin (Aspirin Low Dose) 81 Mg Chew 81 MG CHEW DAILY for Prevent Blood Clot for 30 Days, #30 TAB 0 Refills Hydrocodone-Acetaminophen ([place]) 7.5-325 mg Tab 1 TAB PO Q6H PRN for PAIN, #60 TAB 0 Refills Lorazepam (Ativan) 1 Mg Tab 1 MG PO Q6H PRN for ANXIETY AND/OR AGITATION, #20 TAB 0 Refills Continued Medications: Cyanocobalamin (B-12) 100 Mcg Tab 100 MCG PO DAILY for Nutritional Supplement, #1 BOTTLE 0 Refills Ferrous Gluconate (Ferrous Gluconate) 325 Mg Tab 325 MG PO DAILY for Nutritional Supplement, #30 TAB 0 Refills Folic Acid (Folic Acid) 400 Mcg Tab 1 MG PO DAILY for Nutritional Supplement, TAB 0 Refills Furosemide (Lasix) 20 Mg Tab 20 MG PO DAILY, #30 TAB 0 Refills Insulin Degludec Inj (Tresiba Flextouch Pen Inj) 300 unit/3 ML Pen 25 UNITS SQ DAILY for Blood Sugar Management, #15 ML 0 Refills Lactulose Liq (Lactulose Liq) 10 Gm/15 Ml Soln 30 ML PO Q6H PRN for CONSTIPATION, ML 0 Refills Levothyroxine (Levothyroxine) 88 Mcg Tab 88 MCG PO DAILY for Thyroid, #30 TAB 0 Refills Magnesium Oxide (Magnesium Oxide) 400 Mg Tab 400 MG PO DAILY for Nutritional Supplement, TAB 0 Refills Multiple Vitamin (Multiple Vitamin) 1 Tab 1 TAB PO DAILY for Nutritional Supplement, TAB 0 Refills Omeprazole (Omeprazole) 20 Mg Tab 20 MG PO HS, #30 TAB 0 Refills Daniel Garcia DO Nov 22, 2017 14:34
[2017-11-22] MEDS: PANTOPRAZOLE SOD 20 MG DELAYED RELEASE TAB PO SCH (20:51)
[2017-11-23 00:19] VITALS: PULSE 92
[2017-11-23 04:03] VITALS: PULSE 92
[2017-11-23 04:56] VITALS: BP 124/74; PULSE 95; RESP 16; TEMP 96.9; O2SAT 96
[2017-11-23] MEDS: LEVOTHYROXINE SODIUM 88 MCG TAB PO SCH (05:35)
[2017-11-23 06:21] LABS: HEMATOCRIT 26.8 % (39.0-51.0); HEMOGLOBIN 9.6 GM/DL (13.0-17.0); MEAN CORPUSCULAR HGB CONC 35.9 % (32.0-36.0); MEAN PLATELET VOLUME 7.1 FL (7.0-11.0); PLATELET COUNT 64 TH/MM3 (150-450); RED BLOOD COUNT 2.91 MIL/MM3 (4.50-5.90); RED CELL DISTRIBUTION WIDTH 13.7 % (11.6-17.2); WHITE BLOOD COUNT 5.4 TH/MM3 (4.0-11.0)
[2017-11-23 07:34] VITALS: BP 134/89; PULSE 101; RESP 19; TEMP 97.3; O2SAT 99
[2017-11-23] MEDS: MEDIUM DOSE INSULIN NOVOLOG SUPPLEMENTAL SCALE SQ SCH (08:00)
[2017-11-23] MEDS: INSULIN ASPART 1,000 UNITS/10 ML VIAL SQ SCH (08:00)
[2017-11-23] MEDS: MULTIVITAMINS/MINERALS THERAPEUTIC TAB PO SCH (08:02)
[2017-11-23] MEDS: CYANOCOBALAMIN 100 MCG TAB PO SCH (08:02)
[2017-11-23] MEDS: FUROSEMIDE 20 MG TAB PO SCH (08:02)
[2017-11-23] MEDS: MAGNESIUM OXIDE 400 MG TAB PO SCH (08:02)
[2017-11-23] MEDS: FERROUS SULFATE 325 MG (65 MG ELEMENTAL IRON) TAB PO SCH (08:02)
[2017-11-23] MEDS: FOLIC ACID 1 MG TAB PO SCH (08:02)
[2017-11-23] MEDS: ACETAMINOPHEN/HYDROcodone 325 MG/7.5 MG TAB PO PRN (08:10)
--- NOTE | 2017-11-23 08:11 | PD.ORT.PN ---
Subjective Post Op Day #: 3 Subjective Remarks pain improving. able to walk some with PT yesterday. Objective Vitals Vital Signs Date Time Temp Pulse Resp B/P (MAP) Pulse Ox O2 Delivery O2 Flow Rate FiO2 11/23/17 07:34 97.3 101 19 134/89 (104) 99 11/23/17 04:56 96.9 95 16 124/74 (91) 96 11/23/17 04:03 92 11/23/17 00:19 92 11/22/17 23:38 97.5 95 15 103/74 (84) 97 11/22/17 20:15 96.3 112 16 107/66 (80) 96 11/22/17 20:05 111 11/22/17 16:00 97.3 95 18 130/76 (94) 96 11/22/17 12:00 97.4 98 18 129/84 (99) 98 I/O 11/22/17 11/22/17 11/22/17 11/23/17 11/23/17 11/23/17 07:00 15:00 23:00 07:00 15:00 23:00 Intake Total 520 ml 480 ml 840 ml Output Total 700 ml Balance 520 ml 480 ml 140 ml Intake Oral 520 ml 480 ml 840 ml Output Urine Total 700 ml # Voids 2 3 3 # Bowel Movements 0 0 2 Result Diagram: 11/23/17 0546 11/22/17 0605 Imaging Last 24 hours Impressions Hip and Pelvis X-Ray 11/19/17 1547 Signed Impressions: Service Date/Time: Sunday, November 19, 2017 16:30 - CONCLUSION: 1. Left femoral neck fracture, as above. Ambrose Christine MD Objective Remarks Awake, alert, no acute distress Dressing in place without drainage. Left lower extremity: Neurovascular intact, no calf tenderness. Brisk cap refill Assessment & Plan Ortho Post Op Day #: 3 Problem List: (1) Hip fracture, left ICD Codes: S72.002A - Fracture of unspecified part of neck of left femur, initial encounter for closed fracture Status: Acute Qualifiers: Qualified Codes: S72.002A - Fracture of unspecified part of neck of left femur, initial encounter for closed fracture Assessment and Plan s/p L Bipolar Hemiarthroplasty POD#3, Kevin wbat - posterior hip precautions ok to maintain dressing unless saturated asa 81mg PT rx in chart Discharge planning to rehab, cleared by ortho f/up dr. rodriguez 2 weeks. Gareth Cortez Nov 23, 2017 08:11
== END 2017-11-23 12:25 | DRG 470 ==
LOC: NEPE 15:40 → NEDA 17:25 → N06A 18:15
PROVIDERS: ADMIT Hospitalist; ATTEND Hospitalist
PROC: 30233R1 Transfusion of Nonautologous Platelets into Peripheral Vein, Percutaneous Approach (ICD-10-PCS; 2017-11-20)
PROC: 0SRS0JA Replacement of Left Hip Joint, Femoral Surface with Synthetic Substitute, Uncemented, Open Approach (ICD-10-PCS; principal; 2017-11-20 09:41)
DX: S72.002A Fracture of unspecified part of neck of left femur, initial encounter for closed fracture (principal); E87.1 Hypo-osmolality and hyponatremia; K70.30 Alcoholic cirrhosis of liver without ascites; D69.6 Thrombocytopenia, unspecified; E11.9 Type 2 diabetes mellitus without complications; F10.20 Alcohol dependence, uncomplicated; K21.9 Gastro-esophageal reflux disease without esophagitis; I10 Essential (primary) hypertension; D63.8 Anemia in other chronic diseases classified elsewhere; E78.5 Hyperlipidemia, unspecified; K72.90 Hepatic failure, unspecified without coma; W01.0XXA Fall on same level from slipping, tripping and stumbling without subsequent striking against object, initial encounter; Y92.009 Unspecified place in unspecified non-institutional (private) residence as the place of occurrence of the external cause; Z79.4 Long term (current) use of insulin
CPT/HCPCS: 36430; 71010; 73502; 80048; 82140; 82947; 82948; 83735; 85025; 85027; 85610; 85730; 86850; 86900; 86901; 86920; 86922; 93005; 94150; 96374; 96375; C1776; J0690; J1100; J1170; J1200; J1580; J1815; J2250; J2370; J2405; J2710; J3010; J3370; J3475; J7030; J7040; J7050; L1830; P9035

== ENCOUNTER 2018-02-18 01:18 | Emergency (ER) | payer OTHER ==
[~2018-02-18] VITALS: Ht 167.6 cm; Wt 58.0 kg
[~2018-02-18 01:18] MED LIST changes: +ASPI81CH6 CHEW; +HYDR-3288 PO; +LORA-474 PO; -NOVOINJ3 SQ
[2018-02-18 01:25] VITALS: BP 148/88; RESP 18; TEMP 98.1
[2018-02-18] MEDS ORDERED: INSU1INJ14 SQ (01:40)
[2018-02-18] MEDS ORDERED: NOVOLOGP2 SQ (01:40)
[2018-02-18] MEDS ORDERED: SODIUM CHLOR 0.9% 1000 ML INJ 1,000 ML IV ONE ×2 (02:00→03:30)
--- NOTE | 2018-02-18 02:15 | PD ---
HPI Chief Complaint: Diabetic Time Seen by Provider: 01:45 Travel History International Travel<30 days: No Contact w/Intl Traveler<30days: No Traveled to known affect area: No History of Present Illness HPI 52-year-old male presents emerged from complaining of diarrhea, weakness, and hypotension. He is a history of cirrhosis, varices, anemia, and diabetes. He reports that he has had intermittent loose stools for quite some time. Over the past 3 hours or so he has had proficient copious watery stools associated with lightheadedness dizziness. His states his blood pressure drops when he gets up and has a lightheadedness. She gave him Gatorade mixed with salt to try to bring the blood pressure up. She reports his blood program been running low but was high after the Gatorade. Denies any fevers. No significant abdominal pain. Been compliant with all his medications. History Past Medical History Narrative Medical Cirrhosis, varices Anemia Hypertension Hypothyroidism Diabetes Social History Alcohol Use: Yes (2 shots of vodka a day) Tobacco Use: No Allergies-Medications (Allergen,Severity, Reaction): Coded Allergies: No Known Allergies (Verified Allergy, Unknown, 02/18/18) Reported Meds & Prescriptions Reported Meds & Active Scripts Active Reported Tresiba Flextouch Pen Inj (Insulin Degludec Inj) 300 unit/3 ML Pen 14 Units SQ DAILY Novolog Inj (Insulin Aspart) 1,000 Unit/10 Ml Vial Unknown Dose SQ DIRECTED Sliding Scale as directed. Multiple Vitamin 1 Tab 1 Tab PO DAILY Folic Acid 400 Mcg Tab 1 Mg PO DAILY Ferrous Gluconate 325 Mg Tab 325 Mg PO DAILY B-12 (Cyanocobalamin) 100 Mcg Tab 100 Mcg PO DAILY Lactulose Liq (Lactulose) 10 Gm/15 Ml Soln 30 Ml PO Q6H PRN Omeprazole 20 Mg Tab 20 Mg PO HS Levothyroxine (Levothyroxine Sodium) 88 Mcg Tab 88 Mcg PO DAILY Magnesium Oxide 400 Mg Tab 400 Mg PO DAILY Lasix (Furosemide) 20 Mg Tab 20 Mg PO DAILY Review of Systems Except as stated in HPI: all other systems reviewed are Neg Physical Exam Narrative GENERAL: Thin 52-year-old man, no acute distress. SKIN: Focused skin assessment warm/dry. Little bit of decreased skin turgor. HEAD: Atraumatic. Normocephalic. EYES: Pupils equal and round. No scleral icterus. No injection or drainage. ENT: No nasal bleeding or discharge. Mucous membranes pink and moist. NECK: Trachea midline. No JVD. CARDIOVASCULAR: Regular rate and rhythm. No murmur appreciated. RESPIRATORY: No respiratory distress. Mild tachypnea. GASTROINTESTINAL: Minimal distention. Soft, no tenderness. MUSCULOSKELETAL: No obvious deformities. No edema NEUROLOGICAL: Awake and alert. No obvious cranial nerve deficits. Motor grossly within normal limits. Normal speech. PSYCHIATRIC: Appropriate mood and affect; insight and judgment normal. Data Data Last Documented VS Vital Signs Date Time Temp Pulse Resp B/P (MAP) Pulse Ox O2 Delivery O2 Flow Rate FiO2 02/18/18 01:25 98.1 18 148/88 (108) Orders Orders Complete Blood Count With Diff (02/18/18 01:55) Comprehensive Metabolic Panel (02/18/18 01:55) Beta Hydroxybutyrate (Acetone) (02/18/18 01:55) Lactic Acid (02/18/18 01:55) Sodium Chlor 0.9% 1000 Ml Inj (Ns 1000 M (02/18/18 02:00) Iv Access Insert/Monitor (02/18/18 01:55) Sodium Chlor 0.9% 1000 Ml Inj (Ns 1000 M (02/18/18 03:30) Insulin Aspart Inj (Novolog Inj) (02/18/18 03:30) Labs Laboratory Tests Test 02/18/18 02:05 02/18/18 02:15 White Blood Count 3.8 TH/MM3 Red Blood Count 4.74 MIL/MM3 Hemoglobin 14.2 GM/DL Hematocrit 41.8 % Mean Corpuscular Volume 88.2 FL Mean Corpuscular Hemoglobin 30.0 PG Mean Corpuscular Hemoglobin Concent 33.9 % Red Cell Distribution Width 17.2 % Platelet Count 65 TH/MM3 Mean Platelet Volume 7.3 FL Neutrophils (%) (Auto) 46.0 % Lymphocytes (%) (Auto) 47.1 % Monocytes (%) (Auto) 5.5 % Eosinophils (%) (Auto) 0.9 % Basophils (%) (Auto) 0.5 % Neutrophils # (Auto) 1.7 TH/MM3 Lymphocytes # (Auto) 1.8 TH/MM3 Monocytes # (Auto) 0.2 TH/MM3 Eosinophils # (Auto) 0.0 TH/MM3 Basophils # (Auto) 0.0 TH/MM3 CBC Comment AUTO DIFF Differential Comment AUTO DIFF CONFIRMED Platelet Estimate LOW Platelet Morphology Comment NORMAL Blood Urea Nitrogen 11 MG/DL Creatinine 1.27 MG/DL Random Glucose 624 MG/DL Total Protein 8.0 GM/DL Albumin 3.2 GM/DL Calcium Level 7.8 MG/DL Alkaline Phosphatase 183 U/L Aspartate Amino Transf (AST/SGOT) 23 U/L Alanine Aminotransferase (ALT/SGPT) 20 U/L Total Bilirubin 0.8 MG/DL Sodium Level 144 MEQ/L Potassium Level 3.8 MEQ/L Chloride Level 111 MEQ/L Carbon Dioxide Level 24.8 MEQ/L Anion Gap 8 MEQ/L Estimat Glomerular Filtration Rate 60 ML/MIN B-Hydroxybutyrate 0.27 MMOL/L Lactic Acid Level 2.2 mmol/L [facility] Medical Decision Making Medical Screen Exam Complete: Yes Emergency Medical Condition: Yes Interpretation(s) LABS: CBC remarkable for leukocytosis. CMP remarkable for glucose 624 Lactate 2.2 Beta hydroxybutyrate 0.27 Differential Diagnosis Dehydration, DKA, anemia, colitis, enteritis, other Narrative Course Medical decision making INITIAL is a 52-year-old male presents to the emergency department with markedly elevated blood sugar, complaining of copious watery diarrhea, associated with lightheadedness dizziness no evidence of dehydration. Will give IV fluids, check labs. Consider stool studies, reassess. Diagnosis Primary Impression: Dehydration Additional Impressions: Hyperglycemia Diarrhea Additional Instructions: Drink plenty of fluids and stay well-hydrated. Follow-up with her primary doctor in the next 2-4 days. Return to the emergency department for any new or worsening symptoms. Med/Other Pt SpecificInfo: No Change to Meds Disposition: 01 DISCHARGE HOME Condition: Stable Alon Johnson MD Feb 18, 2018 02:15
[2018-02-18 02:36] LABS: AUTOMATED NEUTROPHIL # 1.7 TH/MM3 (1.8-7.7); BASOPHIL % 0.5 % (0.0-2.0); EOSINOPHIL % 0.9 % (0.0-4.0); HEMATOCRIT 41.8 % (39.0-51.0); HEMOGLOBIN 14.2 GM/DL (13.0-17.0); LYMPH % 47.1 % (9.0-44.0); LYMPHOCYTE # 1.8 TH/MM3 (1.0-4.8); MEAN CELL VOLUME 88.2 FL (80.0-100.0); MEAN CORPUSCULAR HGB CONC 33.9 % (32.0-36.0); MEAN PLATELET VOLUME 7.3 FL (7.0-11.0); MONO % 5.5 % (0.0-8.0); MONOCYTE # 0.2 TH/MM3 (0-0.9); PLATELET COUNT 65 TH/MM3 (150-450); RED BLOOD COUNT 4.74 MIL/MM3 (4.50-5.90); RED CELL DISTRIBUTION WIDTH 17.2 % (11.6-17.2); WHITE BLOOD COUNT 3.8 TH/MM3 (4.0-11.0)
[2018-02-18 02:51] LABS: ALBUMIN 3.2 GM/DL (3.4-5.0); ALT (GPT) 20 U/L (12-78); AST (GOT) 23 U/L (15-37); BICARBONATE 24.8 MEQ/L (21.0-32.0); BLOOD UREA NITROGEN 11 MG/DL (7-18); CALCIUM 7.8 MG/DL (8.5-10.1); CHLORIDE 111 MEQ/L (98-107); CREATININE 1.27 MG/DL (0.60-1.30); GLOMERULAR FILTRATION RATE 60 ML/MIN (>89); SODIUM (NA) 144 MEQ/L (136-145)
[2018-02-18 02:57] LABS: ALKALINE PHOSPHATASE 183 U/L (45-117); TOTAL BILIRUBIN ADULT 0.8 MG/DL (0.2-1.0)
[2018-02-18 03:00] LABS: GLUCOSE,RANDOM 624 MG/DL (74-106)
[2018-02-18] MEDS ORDERED: INSULIN ASPART 1,000 UNITS/10 ML VIAL SQ ONE (03:30)
[2018-02-18 07:41] VITALS: BP 98/56; PULSE 101; RESP 17; O2SAT 100
== END 2018-02-18 08:22 | disposition home or self-care (01) ==
LOC: NEPE 01:18
DX: E86.0 Dehydration (principal); E11.65 Type 2 diabetes mellitus with hyperglycemia; R19.7 Diarrhea, unspecified; E03.9 Hypothyroidism, unspecified; I10 Essential (primary) hypertension; Z79.4 Long term (current) use of insulin
CPT/HCPCS: 80053; 82010; 83605; 85025; 96360; 96361; 96372; 99284; J1815; J7030